=== PATIENT | female | born 1970 | race Caucasian/White ===

== ENCOUNTER → 2016-10-26 | Outpatient (CLI) | payer BC ==
[~2016-10-26] MED LIST: ATV5X PO; CEFU1TAB36 PO; IBUP-1451 PO; LORA-741 PO; ONDA4TAB10 SL; PHEN-876 PO; SULF800T23 PO; TAMS0.4C38 PO; THY30 PO
--- NOTE | 2016-10-26 13:22 | DIAGNOSTIC IMAGING REPORT ---
RIGHT FOOT MIN 3 VIEWS ROUTINE CLINICAL HISTORY: Right foot pain. No recent trauma. COMPARISON: None FINDINGS: The tarsometatarsal joints are intact. There is an accessory ossicle along the lateral aspect of the cuboid. There is no acute fracture or suspicious lesion within the right foot. There is no radiographic evidence of a stress fracture. No erosions are present. A small sclerotic lesion within the medial cuneiform to suggest a bone island. IMPRESSION: No significant abnormality of the right foot. Electronically signed by: Leonard Pelayo M.D. 10/26/2016 1:21 PM Dictated Date/Time: 10/26/2016 1:19 PM
== END | disposition home or self-care (01) ==
LOC: C.RADBC 12:49
PROVIDERS: ATTEND Family Medicine
DX: M79.671 Pain in right foot (principal)

== ENCOUNTER → 2017-01-31 | Outpatient (CLI) | payer BC ==
--- NOTE | 2017-02-01 07:58 | MAMMOGRAPHY REPORT ---
BILATERAL DIGITAL SCREENING MAMMOGRAM TOMOSYNTHESIS WITH CAD: 01/31/2017 CLINICAL HISTORY: Routine screening. Patient has no complaints. TECHNIQUE: Breast tomosynthesis in addition to standard 2D mammography was performed. Current study was also evaluated with a Computer Aided Detection (CAD) system. COMPARISON: Comparison is made to exams dated: 01/20/2016 mammogram - [facility], 12/19/2014, 10/25/2013, 10/23/2012, 07/22/2009 mammograms. BREAST COMPOSITION: The tissue of both breasts is heterogeneously dense, which may obscure small mas ses. FINDINGS: The parenchymal pattern is similar to prior mammograms. No developing mass, architectural distortion or cluster of suspicious microcalcifications is seen in either breast. IMPRESSION: ACR BI-RADS CATEGORY 2: BENIGN There is no mammographic evidence of malignancy. A 1 year screening mammogram is recommended. The pa tient will receive written notification of the results. Approximately 10% of breast cancers are not detected with mammography. A negative mammographic report should not delay biopsy if a clinically suggestive mass is present. Gloria Sevilla M.D. ay/:01/31/2017 15:24:57 Crane Man: Abbey RODRIGUEZ(Ashley)(Marquis), [facility] letter sent: Normal 1/2 BI-RADS Code: ACR BI-RADS Category 2: Benign
== END | disposition home or self-care (01) ==
LOC: C.MAMM 13:26
PROVIDERS: ATTEND Obstetrics & Gynecology
DX: Z12.31 Encounter for screening mammogram for malignant neoplasm of breast (principal)

== ENCOUNTER 2017-05-04 02:01 | Emergency (ER) | payer BC ==
[~2017-05-04] VITALS: Ht 157.5 cm; Wt 65.1 kg
[2017-05-04 02:08] VITALS: Ht 157.5 cm; Wt 65.1 kg
[2017-05-04] MEDS ORDERED: CEFTRIAXONE SOD INJ 1 GM ADDVIAL IV STA (02:24)
[2017-05-04] MEDS ORDERED: ONDANSETRON INJ 2 MG/ML 2 ML VIAL IV STA (02:24)
[2017-05-04 02:38] LABS: URINE APPEARANCE CLEAR (CLEAR); URINE BILIRUBIN NEG (NEG); URINE COLOR DK YELLOW; URINE NITRITE POS (NEG); URINE SPECIFIC GRAVITY 1.007 (1.000-1.030); UROBILINOGEN NEG (NEG); ZZUR CULT IF INDIC CLEAN CATCH NO
[2017-05-04] MEDS ORDERED: THY30 PO (02:48)
[2017-05-04 02:54] LABS: MANUAL MICROSCOPIC REQUIRED? NO; REVIEW REQ? YES
[2017-05-04 02:54] LABS: BASO % 0.2 %; BASO ABS # 0.02 K/uL (0-0.2); COMPLETE YES; EOS % 0.7 %; HEMATOCRIT 37.8 % (37-47); IG% 0.2 %; LYMPH % 32.3 %; LYMPH ABS # 2.79 K/uL (1.2-3.4); MEAN CELL VOLUME 87.7 fL (80-100); MEAN CORPUSCULAR HEMOGLOBIN 31.6 pg (25-34); MEAN PLATELET VOLUME 9.5 fL (7.4-10.4); NEUT % 60.6 %; PLATELET COUNT 283 K/uL (130-400); RED BLOOD COUNT 4.31 M/uL (4.2-5.4); WHITE BLOOD COUNT 8.63 K/uL (4.8-10.8)
[2017-05-04 03:10] LABS: BUN/CREATININE RATIO 5.4 (10-20); CALCIUM 8.4 mg/dl (8.5-10.1); CREATININE 0.62 mg/dl (0.60-1.20); POTASSIUM 3.1 mmol/L (3.5-5.1)
[2017-05-04] MEDS ORDERED: POTASSIUM CHLORIDE 10 MEQ TABCR PO STA (03:52)
[2017-05-04] MEDS ORDERED: PHENAZOPYRIDINE HCL 200 MG TAB PO STA (03:53)
[2017-05-04] MEDS ORDERED: SODIUM CHLORIDE 0.9% 500ML 500 ML IV STA (03:54)
[2017-05-04] MEDS ORDERED: LORAZEPAM 2 MG/ML 1 ML VIAL IV STA (04:04)
[2017-05-04 04:09] LABS: MAGNESIUM 1.8 mg/dl (1.8-2.4); THYROID STIMULATING HORMONE 3.03 uIu/ml (0.300-4.500)
[2017-05-04] MEDS ORDERED: SODIUM CHLORIDE 0.9% 1000ML 1,000 ML IV STA (04:15)
--- NOTE | 2017-05-04 04:42 | EMERGENCY ROOM VISIT NOTE ---
History First contact with patient: 02:12 Chief Complaint: URINARY SYMPTOMS Stated Complaint: SEVERE UTI Nursing Triage Summary: Pt c/o UTI for 10 days. Has been taking bactrim and azo with no relief. History of Present Illness The patient is a 46 year old female who presents to the Emergency Room with complaints of urinary frequency, dysuria, urgency for the past week and have his been on Bactrim. I saw this patient last week and placed her on Bactrim and urine culture was sensitive to this. This is the patient's third urine infection. The family care doctor did extend out her Bactrim. She has an appointment with urology at the end of May with Dr. Jackson. Patient states she feels nauseous. Patient denies back pain, vomiting, diarrhea, vaginal itching or discharge, fever, chills, body aches. Patient's been on Macrobid twice for her other 2 previous urine infections and has been on Bactrim for the past 10 days. Patient states she had skin testing in the past and it showed a mild reaction to the penicillins. Patient is unsure of exactly what she was allergic to to penicillin when she was 6 months old. Review of Systems See HPI for pertinent positives & negatives. A total of 10 systems reviewed and were otherwise negative. Past Medical/Surgical History Recurrent UTIs Social History Smoking Status: Never Smoker Smokeless Tobacco Use: No Drug Use: none Marital Status: Housing Status: lives with family Occupation Status: employed Current/Historical Medications Scheduled Cefuroxime Axetil (Cefuroxime Axetil), 1 TAB PO BID Phenazopyridine HCl (Pyridium), 200 MG PO TID Thyroid ([place] Thyroid), 60 MG PO DAILY Physical Exam Vital Signs Date Time Temp Pulse Resp B/P (MAP) Pulse Ox O2 Delivery O2 Flow Rate FiO2 05/04/17 03:53 90 18 135/91 96 Room Air 05/04/17 02:08 36.8 100 20 160/107 97 Room Air Physical Exam VITALS: Vitals are noted on the nurse's note and reviewed by myself. Vital signs stable. GENERAL: pleasant female, in no acute distress, nondiaphoretic, well-developed well-nourished. SKIN: Capillary reflex less than 2 seconds. HEENT: Normocephalic. PERRLA. EOMI. Nares patent. Mucous membranes moist. Neck is supple without nuchal rigidity. HEART: Regular rate and rhythm without murmurs gallops or rubs. LUNGS: Clear to auscultation bilaterally without wheezes, rales or rhonchi. No retractions or accessory muscle use. ABDOMEN: Positive bowel sounds x 4. Normal tympanic percussion. Soft, nontender, without masses or organomegaly. Robins sign negative. No guarding or rebound tenderness. no CVA tenderness MUSCULOSKELETAL: No gross musculoskeletal defects. No pedal edema. No calf tenderness. NEURO: Patient was alert and oriented to person place and time. Normal sensation to light and sharp touch. No focal neurological deficits. Medical Decision & Procedures Laboratory Results 05/04/17 02:45 Red Blood Count 4.31, Mean Corpuscular Volume 87.7, Mean Corpuscular Hemoglobin 31.6, Mean Corpuscular Hemoglobin Concent 36.0, Mean Platelet Volume 9.5, Neutrophils (%) (Auto) 60.6, Lymphocytes (%) (Auto) 32.3, Monocytes (%) (Auto) 6.0, Eosinophils (%) (Auto) 0.7, Basophils (%) (Auto) 0.2, Neutrophils # (Auto) 5.22, Lymphocytes # (Auto) 2.79, Monocytes # (Auto) 0.52, Eosinophils # (Auto) 0.06, Basophils # (Auto) 0.02 05/04/17 02:45 Test 05/04/17 02:20 05/04/17 02:45 Urine Color DK YELLOW Urine Appearance CLEAR (CLEAR) Urine pH 7.0 (4.5-7.5) Urine Specific [place] 1.007 (1.000-1.030) Urine Protein NEG (NEG) Urine Glucose (UA) NEG (NEG) Urine Ketones TRACE (NEG) Urine Occult Blood NEG (NEG) Urine Nitrite POS (NEG) Urine Bilirubin NEG (NEG) Urine Urobilinogen NEG (NEG) Urine Leukocyte Esterase TRACE (NEG) Urine WBC (Auto) 1-5 /hpf (0-5) Urine RBC (Auto) 0-4 /hpf (0-4) Urine Hyaline Casts (Auto) 0 /lpf (0-5) Urine Epithelial Cells (Auto) 10-20 /lpf (0-5) Urine Bacteria (Auto) NEG (NEG) Urine Osmolality 65 mOms/kg (500-800) Urine Random Sodium 21 mEq/L Urine Test NEG (NEG) White Blood Count 8.63 K/uL (4.8-10.8) Red Blood Count 4.31 M/uL (4.2-5.4) Hemoglobin 13.6 g/dL (12.0-16.0) Hematocrit 37.8 % (37-47) Mean Corpuscular Volume 87.7 fL (80-100) Mean Corpuscular Hemoglobin 31.6 pg (25-34) Mean Corpuscular Hemoglobin Concent 36.0 g/dl (32-36) Platelet Count 283 K/uL (130-400) Mean Platelet Volume 9.5 fL (7.4-10.4) Neutrophils (%) (Auto) 60.6 % Lymphocytes (%) (Auto) 32.3 % Monocytes (%) (Auto) 6.0 % Eosinophils (%) (Auto) 0.7 % Basophils (%) (Auto) 0.2 % Neutrophils # (Auto) 5.22 K/uL (1.4-6.5) Lymphocytes # (Auto) 2.79 K/uL (1.2-3.4) Monocytes # (Auto) 0.52 K/uL (0.11-0.59) Eosinophils # (Auto) 0.06 K/uL (0-0.5) Basophils # (Auto) 0.02 K/uL (0-0.2) RDW Standard Deviation 37.1 fL (36.4-46.3) RDW Coefficient of Variation 11.5 % (11.5-14.5) Immature Granulocyte % (Auto) 0.2 % Immature Granulocyte # (Auto) 0.02 K/uL (0.00-0.02) Anion Gap 9.0 mmol/L (3-11) Est Creatinine Clear Calc Drug Dose 102.6 ml/min Estimated GFR () 127.1 Estimated GFR (Non- 109.7 BUN/Creatinine Ratio 5.4 (10-20) Osmolality 259 mOsm/kg (280-300) Calcium Level 8.4 mg/dl (8.5-10.1) Magnesium Level 1.8 mg/dl (1.8-2.4) Total Bilirubin 0.6 mg/dl (0.2-1) Direct Bilirubin 0.1 mg/dl (0-0.2) Aspartate Amino Transf (AST/SGOT) 17 U/L (15-37) Alanine Aminotransferase (ALT/SGPT) 29 U/L (12-78) Alkaline Phosphatase 60 U/L (45-117) Total Protein 7.8 gm/dl (6.4-8.2) Albumin 3.9 gm/dl (3.4-5.0) Thyroid Stimulating Hormone (TSH) 3.030 uIu/ml (0.300-4.500) Medications Administered Medications (Trade) Dose Ordered Sig/Antonia Route Start Time Stop Time Status Last Admin Dose Admin Ondansetron HCl (Zofran Inj) 4 mg NOW STAT IV 05/04/17 02:24 05/04/17 02:31 DC 05/04/17 02:50 4 MG Ceftriaxone Sodium (Rocephin Inj) 1 gm NOW STAT IV 05/04/17 02:24 05/04/17 02:31 DC 05/04/17 02:51 1 GM Potassium Chloride (Klor-Con M10) 40 meq NOW STAT PO 05/04/17 03:52 05/04/17 03:54 DC 05/04/17 04:00 40 MEQ Phenazopyridine HCl (Pyridium Tab) 200 mg NOW STAT PO 05/04/17 03:53 05/04/17 03:54 DC 05/04/17 04:00 200 MG Sodium Chloride 500 ml @ 999 mls/hr Q31M STAT IV 05/04/17 03:54 05/04/17 04:24 DC 05/04/17 04:00 999 MLS/HR Lorazepam (Ativan Inj) 0.5 mg NOW STAT IV 05/04/17 04:04 05/04/17 04:05 DC 05/04/17 04:11 0.5 MG Sodium Chloride 1,000 ml @ 999 mls/hr Q1H1M STAT IV 05/04/17 04:15 05/04/17 05:15 DC 05/04/17 04:24 999 MLS/HR Ketorolac Tromethamine (Toradol Inj) 30 mg NOW STAT IV 05/04/17 05:17 05/04/17 05:18 DC 05/04/17 05:26 30 MG ED Course Prior records reviewed and summarized as above. Triage Nursing notes reviewed. Additional history obtained from family The patient's history was concerning for urinary symptoms Differential diagnosis: Etiologies such as UTI, cystitis, unlikely abnormality, infection, as well as others were entertained.. Physical examination: As above ER treatment provided: Rocephin, IV fluids, Pyridium, Ativan On reassessment the patient felt better. Diagnostics interpreted by me: The labs revealed low sodium and osmolarity levels were ordered along with TSH. Hypokalemia. Urine concerning for infection and sent for culture Imaging studies: renal US reviewed and read by radiology and concerning for possible pyelonephritis of the left kidney Consultation: A consultation was placed with the Dr. Fraga, resident, hospitalist. The case was discussed and diagnostics were reviewed. The patient was evaluated in the ER for further treatment. This appears to be hyponatremia, hypocalcemia and UTI versus pyelonephritis. Patient was given Rocephin in the ER. Urine culture was sent. Patient states she's been drinking lots of water to flush her bladder. She's been feeling nauseous now shaky and anxious. She will be evaluated by medicine for the hyponatremia and please see their note for further information regarding their treatment plan. Osmolarity levels were ordered. Patient denies history of hyponatremia. Medicine has felt the patient is stable to be discharged home. Patient was given antibiotic prescription by Dr. Fraga and have a repeat sodium tomorrow. The pt informed about the findings as listed above. All questions were answered and pleased with the treatment. Case reviewed by attending. Medical Decision as above Medication Reconcilliation Current Medication List: was personally reviewed by me Blood Pressure Screening Patient's blood pressure: Elevated blood pressure Blood pressure disposition: Referred to PCP Impression Primary Impression: Hyponatremia Additional Impressions: Urinary tract infection Hypokalemia Departure Information Dispostion Being Evaluated By Hospitalist Condition GOOD Prescriptions Phenazopyridine HCl (Pyridium) 200 Mg Tab 200 MG PO TID for Bladder Pain for 2 Days, #6 TAB Prov: Saul Fraga MD 05/04/17 Cefuroxime Axetil (CEFUROXIME AXETIL) 500 Mg Tab 1 TAB PO BID for 7 Days, #14 TAB Prov: Saul Fraga MD 05/04/17 Referrals Varun Winn DO (PCP) Patient Instructions [facility] Problem Qualifiers
[2017-05-04] MEDS ORDERED: KETOROLAC TROMETHAMINE 30 MG/ML VIAL IV STA (05:17)
[2017-05-04] MEDS ORDERED: CEFU1TAB36 PO (05:32)
[2017-05-04] MEDS ORDERED: PHEN-876 PO (05:32)
[2017-05-04 06:00] VITALS: BP 130/88; PULSE 94; TEMP 36.8; O2SAT 98
--- NOTE | 2017-05-04 06:01 | Medical Consult ---
Consultation Date of Consultation: May 04, 2017. Attending Physician: Dr Gao Reason for Consultation: Assessment for possible Admission History of Present Illness Mrs Gandara is a 46 year old female with 3 UTIs since November who presents to the ER with dysuria, urinary frequency, urgency and chills. She was seen in the ER on 04/25/17 (9 days previously with similar symptoms). At that time she was treated with 5 days of Bactrim. Subsequent urine culture showed pansensitive E. coli. However she felt her symptoms did not completely resolve so 3 days ago went to her PCP who considered the diagnosis of interstitial cystitis and recommended treating conservatively with pain relief alone. She became worse over the next 2 days and so returned to PCP and ordered UA + culture and she was again prescribed Bactrim. She was unable to sleep overnight due to her dysuria therefore decided to present to the ER. Using Azo but not making a difference. She denies any fevers but has been having chills in the ER. She has mild suprapubic pain but denies any back pain, nausea, vomiting, vaginal itching discharge or bleeding. She has not had a period since her endometrial ablation in 2011. She has had x3 UTIs since November, the others have been successfully treated with Macrobid. She does not have diabetes and is a non-smoker. No history of kidney stones. Routine lab tests in the ER showed a sodium level of 126 so she was referred to the medical service for admission. She denies any malaise, headache, nausea, confusion or respiratory difficulties. Past Medical/Surgical History Medical Problems: E. coli UTI (04/25/17), x3 UTIs since November x2 UTIs as a child Past Surgical history - Endometrial ablation 2011 Family History Noncontributory Social History Smoking Status: Never Smoker Smokeless Tobacco Use: No Drug Use: none Marital Status: Housing Status: lives with family Occupation Status: employed Allergies Coded Allergies: Penicillins (Verified Allergy, Unknown, HIVES, 05/04/17) Home Medications Occasional supplements but nothing consistent or newly started with her symptoms Recent use of Bactrim and azo as noted in HPI Review of Systems Constitutional: + chills (since coming to the ER), No fever ENT: No hearing loss Respiratory: No cough Cardiovascular: No chest pain Abdomen: + pain (suprapubic), No nausea, No vomiting, No diarrhea, No constipation, No GI bleeding Musculoskeletal: No joint pain, No muscle pain Genitourinary - Female: + dysuria, + urinary frequency, + urinary urgency Neurologic: No memory loss, No numbness/tingling, No vertigo, No balance problems Endocrine: No fatigue Hematologic / Lymphatic: No abnormal bleeding/bruising Integumentary: No rash, No itch Physical Exam Date Time Temp Pulse Resp B/P (MAP) Pulse Ox O2 Delivery O2 Flow Rate FiO2 05/04/17 05:35 94 18 130/88 98 Room Air 05/04/17 03:53 90 18 135/91 96 Room Air 05/04/17 02:08 36.8 100 20 160/107 97 Room Air General Appearance: WD/WN, no apparent distress Head: normocephalic, atraumatic Eyes: normal inspection, PERRL, EOMI ENT: pharynx normal Respiratory/Chest: lungs clear, normal breath sounds, no respiratory distress, no accessory muscle use Cardiovascular: regular rate, rhythm, no murmur, normal peripheral pulses Abdomen/GI: normal bowel sounds, soft, + tenderness (mild tenderness, no rebound or guarding) Back: no CVA tenderness Extremities/Musculoskelatal: no calf tenderness, normal capillary refill, no pedal edema 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 (no facial droop), no motor/sensory deficits (grossly), alert, normal mood/affect, oriented x 3 Skin: normal color, warm/dry, no rash Laboratory Results Last 24 Hours Test 05/04/17 02:20 05/04/17 02:45 Urine Color DK YELLOW Urine Appearance CLEAR Urine pH 7.0 Urine Specific [place] 1.007 Urine Protein NEG Urine Glucose (UA) NEG Urine Ketones TRACE Urine Occult Blood NEG Urine Nitrite POS Urine Bilirubin NEG Urine Urobilinogen NEG Urine Leukocyte Esterase TRACE Urine WBC (Auto) 1-5 /hpf Urine RBC (Auto) 0-4 /hpf Urine Hyaline Casts (Auto) 0 /lpf Urine Epithelial Cells (Auto) 10-20 /lpf Urine Bacteria (Auto) NEG Urine Osmolality 65 mOms/kg Urine Random Sodium 21 mEq/L Urine Test NEG White Blood Count 8.63 K/uL Red Blood Count 4.31 M/uL Hemoglobin 13.6 g/dL Hematocrit 37.8 % Mean Corpuscular Volume 87.7 fL Mean Corpuscular Hemoglobin 31.6 pg Mean Corpuscular Hemoglobin Concent 36.0 g/dl Platelet Count 283 K/uL Mean Platelet Volume 9.5 fL Neutrophils (%) (Auto) 60.6 % Lymphocytes (%) (Auto) 32.3 % Monocytes (%) (Auto) 6.0 % Eosinophils (%) (Auto) 0.7 % Basophils (%) (Auto) 0.2 % Neutrophils # (Auto) 5.22 K/uL Lymphocytes # (Auto) 2.79 K/uL Monocytes # (Auto) 0.52 K/uL Eosinophils # (Auto) 0.06 K/uL Basophils # (Auto) 0.02 K/uL RDW Standard Deviation 37.1 fL RDW Coefficient of Variation 11.5 % Immature Granulocyte % (Auto) 0.2 % Immature Granulocyte # (Auto) 0.02 K/uL Sodium Level 126 mmol/L Potassium Level 3.1 mmol/L Chloride Level 94 mmol/L Carbon Dioxide Level 23 mmol/L Anion Gap 9.0 mmol/L Blood Urea Nitrogen 3 mg/dl Creatinine 0.62 mg/dl Est Creatinine Clear Calc Drug Dose 102.6 ml/min Estimated GFR () 127.1 Estimated GFR (Non- 109.7 BUN/Creatinine Ratio 5.4 Random Glucose 102 mg/dl Osmolality 259 mOsm/kg Calcium Level 8.4 mg/dl Magnesium Level 1.8 mg/dl Total Bilirubin 0.6 mg/dl Direct Bilirubin 0.1 mg/dl Aspartate Amino Transf (AST/SGOT) 17 U/L Alanine Aminotransferase (ALT/SGPT) 29 U/L Alkaline Phosphatase 60 U/L Total Protein 7.8 gm/dl Albumin 3.9 gm/dl Thyroid Stimulating Hormone (TSH) 3.030 uIu/ml Assessment & Plan 46 year old female with recent recurrent UTIs, consult for hyponatremia 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 - she is an otherwise healthy 46 year old female without signs of hyponatremia therefore this can be treated as an outpatient with fluid restriction, 1L NSS given in the ER likely to also bring this up. - Fluid restrict to 1L for next 2 days - Recommend repeat sodium level (script given) on 05/05/17 with results to PCP. - Call PCP in morning to arrange follow up. UTI/cystitis - renal US does not rule out pyelonephritis and raises possibility of upper urinary tract infection however given lack of fever, WBC or CVA tenderness recommend treatment as an outpatient - ceftriaxone 1g IV given in ER, call PCP in morning for culture results and if positive recommend treating with cefuroxime 500mg BID 7 days (printed script given). Patient refused ciprofloxacin due to FDA black box warnings of tendonitis and increased incidence of clostridium difficile. - stressed patient to return to the ER if fever, chills, back pain, confusion or getting worse despite antibiotics. Dysuria, recurrent UTIs - possible urethral retention given post void residual on renal US (radiologist day time reading reviewed after patient discharged, not mentioned on statRad) ? anatomical (prolapse vs. stricture), recommend re-imaging after primary polydipsia and hyponatremia resolved with urology outpatient follow up - possible interstitial cystitis and urethritis due to hypo-osmolar urine and bladder distension - recommend urology follow up - treat with Pyridium and fluid restrict as above Hypokalemia - 40 meq KCl given in ER, suspect secondary to polyuria which should resolve with fluid restriction Attending addendum: I have physically seen this patient, have supervised the medical residents activities, and agree with the H&P unless as otherwise noted. Assessment and Plan: Hypervolemic Hyponatremia/hypokalemia-- Sodium 126, serum osmolality 259, urine osmolality 65. Patient reports that she usually drinks upwards of 3 L of fluid a day on a routine basis. Laboratories are likely chronically in this direction. Advised to 1500 mL fluid restriction for now, and follow up laboratories with her PCP Urinary tract infection/dysuria-- Escherichia coli pansensitive noted one week ago. Suspect her symptoms are at least in part related to very dilute urine and frequent urination Fluid restriction as noted above Prescription for cefuroxime and Pyridium given but told to not fill until she speaks with her PCP tomorrow regarding follow-up of culture and sensitivity done as outpatient yesterday and in the ED today. Consideration for interstitial cystitis Additional Copies To Varun Winn, DO
--- NOTE | 2017-05-04 07:22 | DIAGNOSTIC IMAGING REPORT ---
(RENAL)RETROPERITON COMP CLINICAL HISTORY: 46 years-old Female presenting with recurrent UTI, on Bactrim for 5 days, constant urethral burning, no flank pain or gross hematuria. TECHNIQUE: Real-time grayscale and limited color Doppler ultrasound imaging of the kidneys and bladder was performed. COMPARISON: None. FINDINGS: Right kidney: Normal echogenicity. Right kidney measures 11.5 cm. No hydronephrosis. No convincing evidence of calculus or mass. Normal perfusion. Left kidney: Normal echogenicity. Left kidney measures 11.4 cm. Mild pelviectasis and possible urothelial thickening. No convincing evidence of calculus or mass. Normal perfusion. Bladder: No bladder wall thickening. Bilateral ureteral jets present. Post void residual volume measures 52 mL, which is slightly elevated. Other: None. IMPRESSION: 1. Mild left pelviectasis without convincing evidence of hydronephrosis. Left urothelial thickening raises concern for upper tract infection. Pyelonephritis is difficult to exclude by ultrasound. If there is clinical concern, further evaluation with contrast-enhanced CT of the abdomen and pelvis recommended. 2. Elevated post void residual volume. Electronically signed by: Kem Chavez M.D. 05/04/2017 7:21 AM Dictated Date/Time: 05/04/2017 7:19 AM
[2017-05-05] MEDS ORDERED: ONDA4TAB10 SL (16:52)
[2017-05-05] MEDS ORDERED: LORA-741 PO (16:52)
[2017-05-05] MEDS ORDERED: PHEN-876 PO (16:53)
== END 2017-05-04 06:00 | disposition home or self-care (01) ==
LOC: C.EDB 02:02 → C.EDA 06:00
DX: R63.1 Polydipsia (principal); E87.1 Hypo-osmolality and hyponatremia; N39.0 Urinary tract infection, site not specified; E87.6 Hypokalemia; Z87.440 Personal history of urinary (tract) infections; Z86.19 Personal history of other infectious and parasitic diseases; Z98.890 Other specified postprocedural states

== ENCOUNTER 2017-05-05 13:43 | Emergency (ER) | payer BC ==
[~2017-05-05] VITALS: Ht 157.5 cm; Wt 62.8 kg
[~2017-05-05 13:43] MED LIST changes: -ATV5X PO; -IBUP-1451 PO; -LORA-741 PO; -ONDA4TAB10 SL; -SULF800T23 PO; -TAMS0.4C38 PO
[2017-05-05 13:48] VITALS: TEMP 36.7; Ht 157.5 cm; Wt 62.8 kg
--- NOTE | 2017-05-05 14:16 | EMERGENCY ROOM VISIT NOTE ---
History Report prepared by Geoff: Gurdeep Ray Under the Supervision of: Dr. Christiane Shabazz D.O. First contact with patient: 13:56 Chief Complaint: URINARY SYMPTOMS Stated Complaint: BURNING, UTI Nursing Triage Summary: Pt reports UTI. was here monday night. was told they would call with culture results. c/o urinary burning. Had 1 round of abx, Pyridium. Pt now reports some discomfort today, now worsening. Pt anxious and tearful in Triage. "I don't want to take antibiotics if I don't have to". History of Present Illness The patient is a 46 year old female with a history of 7 UTI's who presents to the Emergency Room with complaints of waxing and waning urinary symptoms that started about 10 days ago. She says that she has been seen here 3 times in the past 10 days. The patient states that she was put on a 5-day course of Bactrim, and finished that earlier in the week. She notes that her symptoms got mostly better, but still felt a bit of burning and pressure going on. The patient says that she saw her primary care physician 3 days ago, and was told that she has some irritation going on. She was told to give a couple more days to see if she would improve. The patient says that she was then seen here 2 days ago due to worsening symptoms, and was told that there was concern that her sodium levels were so low in her urine. She notes that she was given an antibiotic, but did not start it yet, as she does not want to take antibiotics if she does not have to. She states that she felt a lot better yesterday, but this morning, she started having more urinary burning. She states that she took Pyridium around 4 hours ago and Advil 2 hours ago. The patient states that the Pyridium helps the burning a bit, but it did not help today. She denies any back pain, current abdominal pain, vomiting, fevers, abnormal vaginal discharge, bleeding, or rashes. Source of History: patient Onset: About 10 days ago Position: other (global - urinary symptoms) Quality: other (urinary burning) Timing: other (waxing and waning) Associated Symptoms: No fevers, No vomiting, No abdominal pain, No back pain , No rash Note: Associated symptoms: Denies abnormal vaginal discharge, bleeding. Review of Systems See HPI for pertinent positives & negatives. A total of 10 systems reviewed and were otherwise negative. Past Medical & Surgical Medical Problems: (1) No chronic diseases present Family History FHx: cancer Gallbladder disease Heart disease Hypertension Social History Smoking Status: Never Smoker Drug Use: none Marital Status: Housing Status: lives with family Occupation Status: employed Current/Historical Medications Scheduled Cefuroxime Axetil (Cefuroxime Axetil), 1 TAB PO BID Lorazepam (Ativan), 0.5 MG PO BID Ondasetron Odt (Zofran Odt), 4 MG SL Q8 Thyroid ([place] Thyroid), 60 MG PO DAILY Scheduled PRN Phenazopyridine HCl (Pyridium), 200 MG PO TID PRN for Frequency/Burning w/ Urination Allergies Coded Allergies: Penicillins (Verified Allergy, Unknown, HIVES, 05/04/17) Physical Exam Vital Signs Date Time Temp Pulse Resp B/P (MAP) Pulse Ox O2 Delivery O2 Flow Rate FiO2 05/05/17 16:45 90 16 136/92 98 Room Air 05/05/17 15:30 93 16 98 Room Air 05/05/17 13:48 36.7 91 18 152/92 95 Room Air Physical Exam GENERAL: alert, anxious and tearful, well nourished, no distress, non-toxic EYE EXAM: normal conjunctiva, PERRL and EOM's grossly intact OROPHARYNX: no exudate, no erythema, lips, buccal mucosa, and tongue normal and mucous membranes are moist NECK: supple, no nuchal rigidity, no adenopathy, non-tender LUNGS: Clear to auscultation. Normal chest wall mechanics HEART: no murmurs, S1 normal and S2 normal ABDOMEN: abdomen soft, non-tender, normo-active bowel sounds, no masses, no rebound or guarding. BACK: Back is symmetrical on inspection and there is no deformity, no midline tenderness, no CVA tenderness. SKIN: no rashes and no bruising UPPER EXTREMITIES: upper extremities are grossly normal. LOWER EXTREMITIES: No pitting edema. NEURO EXAM: Normal sensorium, cranial nerves II-XII grossly intact, normal speech, no gross weakness of arms, no gross weakness of legs. Medical Decision & Procedures Laboratory Results 05/05/17 14:57 Red Blood Count 4.22, Mean Corpuscular Volume 90.0, Mean Corpuscular Hemoglobin 31.8, Mean Corpuscular Hemoglobin Concent 35.3, Mean Platelet Volume 9.8, Neutrophils (%) (Auto) 73.3, Lymphocytes (%) (Auto) 21.4, Monocytes (%) (Auto) 4.4, Eosinophils (%) (Auto) 0.3, Basophils (%) (Auto) 0.3, Neutrophils # (Auto) 5.34, Lymphocytes # (Auto) 1.56, Monocytes # (Auto) 0.32, Eosinophils # (Auto) 0.02, Basophils # (Auto) 0.02 05/05/17 14:57 Test 05/05/17 14:57 White Blood Count 7.28 K/uL (4.8-10.8) Red Blood Count 4.22 M/uL (4.2-5.4) Hemoglobin 13.4 g/dL (12.0-16.0) Hematocrit 38.0 % (37-47) Mean Corpuscular Volume 90.0 fL (80-100) Mean Corpuscular Hemoglobin 31.8 pg (25-34) Mean Corpuscular Hemoglobin Concent 35.3 g/dl (32-36) Platelet Count 291 K/uL (130-400) Mean Platelet Volume 9.8 fL (7.4-10.4) Neutrophils (%) (Auto) 73.3 % Lymphocytes (%) (Auto) 21.4 % Monocytes (%) (Auto) 4.4 % Eosinophils (%) (Auto) 0.3 % Basophils (%) (Auto) 0.3 % Neutrophils # (Auto) 5.34 K/uL (1.4-6.5) Lymphocytes # (Auto) 1.56 K/uL (1.2-3.4) Monocytes # (Auto) 0.32 K/uL (0.11-0.59) Eosinophils # (Auto) 0.02 K/uL (0-0.5) Basophils # (Auto) 0.02 K/uL (0-0.2) RDW Standard Deviation 39.5 fL (36.4-46.3) RDW Coefficient of Variation 12.0 % (11.5-14.5) Immature Granulocyte % (Auto) 0.3 % Immature Granulocyte # (Auto) 0.02 K/uL (0.00-0.02) Urine Color DK YELLOW Urine Appearance CLEAR (CLEAR) Urine pH 6.5 (4.5-7.5) Urine Specific [place] 1.011 (1.000-1.030) Urine Protein NEG (NEG) Urine Glucose (UA) NEG (NEG) Urine Ketones TRACE (NEG) Urine Occult Blood NEG (NEG) Urine Nitrite POS (NEG) Urine Bilirubin NEG (NEG) Urine Urobilinogen NEG (NEG) Urine Leukocyte Esterase TRACE (NEG) Urine WBC (Auto) 1-5 /hpf (0-5) Urine RBC (Auto) 0-4 /hpf (0-4) Urine Hyaline Casts (Auto) 1-5 /lpf (0-5) Urine Epithelial Cells (Auto) >30 /lpf (0-5) Urine Bacteria (Auto) NEG (NEG) Anion Gap 7.0 mmol/L (3-11) Est Creatinine Clear Calc Drug Dose 84.5 ml/min Estimated GFR () 114.2 Estimated GFR (Non- 98.5 BUN/Creatinine Ratio 6.5 (10-20) Calcium Level 8.5 mg/dl (8.5-10.1) Laboratory results per my review. Medications Administered Medications (Trade) Dose Ordered Sig/Antonia Route Start Time Stop Time Status Last Admin Dose Admin Lorazepam (Ativan Tab) 0.5 mg NOW STAT SL 05/05/17 16:19 05/05/17 16:21 DC 05/05/17 16:44 0.5 MG Phenazopyridine HCl (Pyridium Tab) 200 mg NOW STAT PO 05/05/17 16:49 05/05/17 16:50 DC 05/05/17 17:21 200 MG ED Course 1403: The patient was evaluated in room B6. A complete history and physical exam was performed. 1540: Upon reevaluation, the patient is feeling better. I discussed the findings and the treatment plan with the patient. She verbalizes agreement and understanding. She will be discharged home. 1619: Ordered Ativan Tab 0.5 mg SL. 1649: Ordered Pyridium Tab 200 mg PO. Medical Decision Differential diagnosis: Etiologies such as renal colic, appendicitis, diverticulitis, mesenteric ischemia, aortic pathology, infections, inflammatory bowel disease, PUD, biliary pathology, UTI, as well as others were entertained. Patient well-appearing here despite complaints. No evidence of pyelonephritis. Doubt pyelonephritis or bacteremia/sepsis. Patient's urine again suggestive of UTI. Patient has antibiotic she was written for as a prescription 24 hours ago at home and had not yet started. I advised her to start this. Recheck of the patient's serum sodium shows it has increased from 126 to 132. Patient with no other signs of hyponatremia. Discussed with patient possible component of urethritis and irritation secondary to frequent urination and she has been drinking copious amounts of water, which is likely also the cause of her hyponatremia. Culture was sent as a precaution, discussed with patient and family follow-up with urology as scheduled, symptoms to watch and return for, they verbalized understanding were agreeable with plan. Patient hemodynamically stable here, tolerating by mouth. Medication Reconcilliation Current Medication List: was personally reviewed by me Blood Pressure Screening Patient's blood pressure: Elevated blood pressure Blood pressure disposition: Elevated BP felt to be situational Impression Primary Impression: Dysuria Additional Impression: Hyponatremia Scribe Attestation The scribe's documentation has been prepared under my direction and personally reviewed by me in its entirety. I confirm that the note above accurately reflects all work, treatment, procedures, and medical decision making performed by me. Departure Information Dispostion Home / Self-Care Prescriptions Phenazopyridine HCl (Pyridium) 200 Mg Tab 200 MG PO TID Y for Frequency/Burning w/Urination, #12 TAB Prov: Christiane Shabazz DO 05/05/17 Ondasetron Odt (ZOFRAN ODT) 4 Mg Tab 4 MG SL Q8 for Nausea, #20 TAB Prov: Christiane Shabazz, 05/05/17 Lorazepam (ATIVAN) 0.5 Mg Tab 0.5 MG PO BID for Anxiety, #10 TAB Prov: Christiane Shabazz, 05/05/17 Referrals Varun Winn DO (PCP) Patient Instructions My [facility] Additional Instructions Please continue to drink fluids to stay well-hydrated. You may eat as tolerated. You may continue using the Pyridium for your discomfort. Please take the antibiotics as prescribed. You may call to check on the urine culture tomorrow. Your sodium was improved today to 132. If you have worsening pain, are unable to urinate, develop back pain, abdominal pain, fevers, vomiting, or you have any other new concerns, please return the emergency room. Problem Qualifiers
[2017-05-05 15:13] LABS: URINE APPEARANCE CLEAR (CLEAR); URINE BILIRUBIN NEG (NEG); URINE COLOR DK YELLOW; URINE NITRITE POS (NEG); URINE PH 6.5 (4.5-7.5); URINE SPECIFIC GRAVITY 1.011 (1.000-1.030); UROBILINOGEN NEG (NEG); ZZUR CULT IF INDIC CLEAN CATCH NO
[2017-05-05 15:14] LABS: MANUAL MICROSCOPIC REQUIRED? NO; REVIEW REQ? YES
[2017-05-05 15:19] LABS: BASO % 0.3 %; BASO ABS # 0.02 K/uL (0-0.2); COMPLETE YES; EOS % 0.3 %; IG% 0.3 %; LYMPH % 21.4 %; LYMPH ABS # 1.56 K/uL (1.2-3.4); MEAN CORPUSCULAR HEMOGLOBIN 31.8 pg (25-34); MEAN CORPUSCULAR HGB CONC 35.3 g/dl (32-36); MEAN PLATELET VOLUME 9.8 fL (7.4-10.4); MONO % 4.4 %; NEUT % 73.3 %; PLATELET COUNT 291 K/uL (130-400); RED BLOOD COUNT 4.22 M/uL (4.2-5.4); WHITE BLOOD COUNT 7.28 K/uL (4.8-10.8)
[2017-05-05 15:23] LABS: URINE EPITHELIAL CELL AUTO >30 /lpf (0-5)
[2017-05-05 15:38] LABS: BUN/CREATININE RATIO 6.5 (10-20); CALCIUM 8.5 mg/dl (8.5-10.1); CREATININE 0.74 mg/dl (0.60-1.20); POTASSIUM 3.9 mmol/L (3.5-5.1)
[2017-05-05] MEDS ORDERED: LORAZEPAM 0.5 MG TAB SL STA (16:19)
[2017-05-05 16:45] VITALS: BP 136/92; PULSE 90; O2SAT 98
[2017-05-05] MEDS ORDERED: PHENAZOPYRIDINE HCL 200 MG TAB PO STA (16:49)
[2017-05-05] MEDS ORDERED: ONDA4TAB10 SL (16:52)
[2017-05-05] MEDS ORDERED: LORA-741 PO (16:52)
[2017-05-05] MEDS ORDERED: PHEN-876 PO (16:53)
== END 2017-05-05 17:31 | disposition home or self-care (01) ==
LOC: C.EDB 13:44
DX: R30.0 Dysuria (principal); E87.1 Hypo-osmolality and hyponatremia; Z87.440 Personal history of urinary (tract) infections; Z80.9 Family history of malignant neoplasm, unspecified; Z82.49 Family history of ischemic heart disease and other diseases of the circulatory system; Z79.899 Other long term (current) drug therapy

== ENCOUNTER → 2017-05-08 | Outpatient (CLI) | payer BC ==
[~2017-05-08] MED LIST changes: +ATV5X PO; +IBUP-1451 PO; +LORA-741 PO; +ONDA4TAB10 SL; +TAMS0.4C38 PO
[2017-05-08 19:28] LABS: MANUAL MICROSCOPIC REQUIRED? NO; URINE APPEARANCE CLEAR (CLEAR); URINE BILIRUBIN NEG (NEG); URINE COLOR YELLOW; URINE NITRITE NEG (NEG); URINE SPECIFIC GRAVITY <= 1.005 (1.000-1.030); UROBILINOGEN NEG (NEG)
[2017-05-08 19:31] LABS: REVIEW REQ? NO
== END | disposition home or self-care (01) ==
LOC: C.LABSPEC 17:47
PROVIDERS: ATTEND Physician Assistant
DX: N94.9 Unspecified condition associated with female genital organs and menstrual cycle (principal)

== ENCOUNTER 2017-05-11 18:18 | Emergency (ER) | payer BC ==
[~2017-05-11] VITALS: Ht 157.5 cm; Wt 62.6 kg
[~2017-05-11 18:18] MED LIST changes: -ATV5X PO; -IBUP-1451 PO; -TAMS0.4C38 PO
[2017-05-11 18:19] VITALS: Ht 157.5 cm; Wt 62.6 kg
--- NOTE | 2017-05-11 18:46 | EMERGENCY ROOM VISIT NOTE ---
History Report prepared by Geoff: Jose E Gonzalez Under the Supervision of: Dr. Eran Blue M.D. First contact with patient: 18:34 Chief Complaint: URINARY SYMPTOMS Stated Complaint: BURNING IN THE URETHRA AREA FOR 10 DAYS Nursing Triage Summary: pt reports she has been here 4 x in last 2 weeks for urinary sx . has appt with urology on may 19 pt reports not having life d/t discomfort and was told her sx are not urgent at this time. c/o urethra burning History of Present Illness The patient is a 47 year old female who presents to the Emergency Room with complaints of burning and contraction of her urethra. She complains of UTI for the past 10 days which have been "hell". The patient complains of worsening pain and symptoms despite regular administration of Tylenol and Advil. The patient has made an appointment with Urology for 05/19/2017; however she was unable to obtain an earlier appointment. Per patient, recently seen by VISUAL MERCHANDISING DIRECTOR () with unremarkable pelvic exam, negative UA with cervical cultures pending. Further, the patient has had recurrent urinary tract infections since November of earlier this year. She denies fevers, chills, headaches, nausea, vomiting, discharge, and blood in urine. Source of History: patient, spouse/significant other Onset: 10 days ago Position: pelvis (urethra) Quality: other (contraction of urethra and pain) Timing: worsening (worse from her previous episode) Associated Symptoms: + urinary symptoms (pain without discharge or blood in urine), No fevers, No chills, No nausea, No vomiting Note: Additional Symptoms: dysuria Review of Systems See HPI for pertinent positives and negatives. A total of ten systems were reviewed and were otherwise negative. Past Medical & Surgical Medical Problems: (1) No chronic diseases present Family History FHx: cancer Gallbladder disease Heart disease Hypertension Social History Smoking Status: Never Smoker Drug Use: none Marital Status: Housing Status: lives with family Occupation Status: employed Current/Historical Medications Scheduled Lorazepam (Ativan), 0.5 MG PO BID Phenazopyridine HCl (Pyridium), 200 MG PO TID Tamsulosin Hcl (Flomax), 0.4 MG PO DAILY Thyroid ([place] Thyroid), 60 MG PO DAILY Scheduled PRN Ibuprofen Tab (Motrin), 800 MG PO Q8H PRN for Pain Lorazepam (Lorazepam), 1 TAB PO BID PRN for Anxiety Phenazopyridine HCl (Pyridium), 200 MG PO TID PRN for Frequency/Burning w/ Urination Allergies Coded Allergies: Penicillins (Verified Allergy, Unknown, HIVES, 05/11/17) Physical Exam Vital Signs Date Time Temp Pulse Resp B/P (MAP) Pulse Ox O2 Delivery O2 Flow Rate FiO2 05/11/17 21:53 36.8 82 18 129/87 96 Room Air 05/11/17 20:00 37.0 92 18 157/94 96 Room Air 05/11/17 19:31 85 05/11/17 18:19 36.9 96 18 157/111 95 Room Air Physical Exam GENERAL: Awake, alert, uncomfortable-appearing, but in no acute distress HENT: Normocephalic, atraumatic. Oropharynx unremarkable. Dry mucous membranes. EYES: Normal conjunctiva. Sclera non-icteric. NECK: Supple. No nuchal rigidity. FROM. No JVD. RESPIRATORY: Clear to auscultation. CARDIAC: Regular rate, normal rhythm. Extremities warm and well perfused. Pulses equal. ABDOMEN: Mild suprapubic tenderness but otherwise soft, non-distended. No rebound or guarding. No masses. RECTAL: Deferred. MUSCULOSKELETAL: Chest examination reveals no tenderness. The back is symmetrical on inspection without obvious abnormality. There is no CVA tenderness to palpation. No joint edema. LOWER EXTREMITIES: Calves are equal size bilaterally and non-tender. No edema. No discoloration. NEURO: Normal sensorium. No sensory or motor deficits noted. SKIN: No rash or jaundice noted. Medical Decision & Procedures Laboratory Results 05/11/17 19:13 Red Blood Count 3.99, Mean Corpuscular Volume 89.7, Mean Corpuscular Hemoglobin 32.3, Mean Corpuscular Hemoglobin Concent 36.0, Mean Platelet Volume 9.5, Neutrophils (%) (Auto) 62.1, Lymphocytes (%) (Auto) 30.6, Monocytes (%) (Auto) 6.3, Eosinophils (%) (Auto) 0.6, Basophils (%) (Auto) 0.1, Neutrophils # (Auto) 6.15, Lymphocytes # (Auto) 3.03, Monocytes # (Auto) 0.62, Eosinophils # (Auto) 0.06, Basophils # (Auto) 0.01 05/11/17 19:13 Test 05/11/17 19:13 White Blood Count 9.90 K/uL (4.8-10.8) Red Blood Count 3.99 M/uL (4.2-5.4) Hemoglobin 12.9 g/dL (12.0-16.0) Hematocrit 35.8 % (37-47) Mean Corpuscular Volume 89.7 fL (80-100) Mean Corpuscular Hemoglobin 32.3 pg (25-34) Mean Corpuscular Hemoglobin Concent 36.0 g/dl (32-36) Platelet Count 278 K/uL (130-400) Mean Platelet Volume 9.5 fL (7.4-10.4) Neutrophils (%) (Auto) 62.1 % Lymphocytes (%) (Auto) 30.6 % Monocytes (%) (Auto) 6.3 % Eosinophils (%) (Auto) 0.6 % Basophils (%) (Auto) 0.1 % Neutrophils # (Auto) 6.15 K/uL (1.4-6.5) Lymphocytes # (Auto) 3.03 K/uL (1.2-3.4) Monocytes # (Auto) 0.62 K/uL (0.11-0.59) Eosinophils # (Auto) 0.06 K/uL (0-0.5) Basophils # (Auto) 0.01 K/uL (0-0.2) RDW Standard Deviation 38.6 fL (36.4-46.3) RDW Coefficient of Variation 11.9 % (11.5-14.5) Immature Granulocyte % (Auto) 0.3 % Immature Granulocyte # (Auto) 0.03 K/uL (0.00-0.02) Urine Color DK YELLOW Urine Appearance CLEAR (CLEAR) Urine pH 6.5 (4.5-7.5) Urine Specific [place] 1.010 (1.000-1.030) Urine Protein NEG (NEG) Urine Glucose (UA) NEG (NEG) Urine Ketones NEG (NEG) Urine Occult Blood NEG (NEG) Urine Nitrite POS (NEG) Urine Bilirubin NEG (NEG) Urine Urobilinogen NEG (NEG) Urine Leukocyte Esterase NEG (NEG) Urine WBC (Auto) /hpf (0-5) Urine RBC (Auto) /hpf (0-4) Urine Hyaline Casts (Auto) /lpf (0-5) Urine Epithelial Cells (Auto) /lpf (0-5) Urine Bacteria (Auto) (NEG) Urine RBC 0-4 /hpf (0-4) Urine WBC 1-5 /hpf (0-5) Urine Epithelial Cells 20-30 /lpf (0-5) Urine Bacteria 2+ (NEG) Urine Test NEG (NEG) Anion Gap 4.0 mmol/L (3-11) Est Creatinine Clear Calc Drug Dose 78.2 ml/min Estimated GFR () 104.8 Estimated GFR (Non- 90.4 BUN/Creatinine Ratio 9.5 (10-20) Calcium Level 8.8 mg/dl (8.5-10.1) Total Bilirubin 0.5 mg/dl (0.2-1) Direct Bilirubin < 0.1 mg/dl (0-0.2) Aspartate Amino Transf (AST/SGOT) 16 U/L (15-37) Alanine Aminotransferase (ALT/SGPT) 28 U/L (12-78) Alkaline Phosphatase 48 U/L (45-117) Total Protein 7.2 gm/dl (6.4-8.2) Albumin 3.6 gm/dl (3.4-5.0) Lipase 125 U/L (73-393) Laboratory results reviewed by me Medications Administered Medications (Trade) Dose Ordered Sig/Antonia Route Start Time Stop Time Status Last Admin Dose Admin Sodium Chloride 1,000 ml @ 999 mls/hr Q1H1M STAT IV 05/11/17 18:50 05/11/17 19:50 DC 05/11/17 19:11 999 MLS/HR Ketorolac Tromethamine (Toradol Inj) 15 mg NOW STAT IV 05/11/17 18:50 05/11/17 18:53 DC 05/11/17 19:09 15 MG Tamsulosin HCl (Flomax Cap) 0.4 mg NOW ONCE PO 05/11/17 20:45 05/11/17 20:47 DC 05/11/17 21:13 0.4 MG Ketorolac Tromethamine (Toradol Inj) 15 mg NOW STAT IV 05/11/17 21:44 05/11/17 21:45 DC 05/11/17 21:51 15 MG Lorazepam (Ativan 1MG Home Pack) 1 homepack UD ONCE PO 05/11/17 22:00 11/23/17 22:01 DC 05/11/17 22:16 1 HOMEPACK Phenazopyridine HCl (Phenazopyridine HCl 200MG Home Pack) 1 homepack UD ONCE PO 05/11/17 22:00 05/11/17 22:01 DC 05/11/17 22:16 1 HOMEPACK ED Course 1834: The patient was evaluated in room C7. A complete history and physical exam was performed. 1849: Toradol Inj, 15 mg, IV; Sodium Chloride 1000 ml @ 999 mls/hr IV. 1930: The patient was anxious appearing and was administered Ativan. Ordered Ativan 0.5 mg PO. Medical Decision I reviewed the patient's past medical history, medications, and the nursing notes as described above. The patient's presentation and history were concerning for UTI, pyelonephritis, urinary stone, dehydration, electrolyte imbalance, urethritis, and malignancy. The patient is a 47-year-old woman with a past medical history of recurring UTIs since November presents to emergency Department with persistent dysuria symptoms after being seen originally on 04/25 with dysuria and was found to have a pansensitive Escherichia coli UTI and completed treatment with Bactrim. However, the patient has continued to have dysuria since that visit and subsequently presents for the fourth time for this complaint per history of present illness. Of note, the patient was seen by VISUAL MERCHANDISING DIRECTOR on 05/08 and reports she had an unremarkable exam with negative UA but cultures pending and was advised to f/u with urology. On arrival the patient is uncomfortable but in no acute distress. She is afebrile with stable vital signs. Labs are notable for sodium of 128 which is similar to prior in the setting of polydipsia. UA was nitrite positive however sample is dirty with positive epithelial cells and 2+ bacteria but only 1-5 WBC. Given this is a similar UA to previous two UAs which grew only normal hector, patient is agreeable to hold on antibiotics at this time. CT abd/pel with left renal cyst and fullness of left renal pelvis without hydroureter nephrosis and was otherwise negative for any emergent findings. After further discussion the patient reports that she has a history of stress incontinence since the of her son 18 years ago and does report pelvic pressure prior to onset of her symptoms of dysuria. Given recent negative UA's in setting of dysuria it is possible that patient's symptoms are 2 /2 dysfunctional urination. Thus will attempt trial of Tamsulosin with prescription strength ibuprofen. 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 Given the patient's anxiety surrounding the symptoms she was previously prescribed a small dose of Ativan. Since these sx are persisting it is reasonable to extend this prescription until she is able to follow up with urology next week on May 19. I did discuss with case management who will attempt to call the urology clinic to see if the patient would be able to the seen sooner if there are any cancellations. Findings and plan for follow-up reviewed with patient. Patient agreeable and d/c'd per discharge instructions. Medication Reconcilliation Current Medication List: was personally reviewed by me Blood Pressure Screening Patient's blood pressure: Elevated blood pressure Blood pressure disposition: Elevated BP felt to be situational Impression Primary Impression: Dysuria Additional Impressions: Dysfunctional voiding of urine Hyponatremia Scribe Attestation The scribe's documentation has been prepared under my direction and personally reviewed by me in its entirety. I confirm that the note above accurately reflects all work, treatment, procedures, and medical decision making performed by me. Departure Information Dispostion Home / Self-Care Prescriptions Ibuprofen Tab (MOTRIN) 800 Mg Tab 800 MG PO Q8H Y for Pain, #30 TAB Prov: Eran Blue M.D. 05/11/17 Tamsulosin Hcl (FLOMAX) 0.4 Mg Cap 0.4 MG PO DAILY, #10 CAP Prov: Eran Blue M.D. 05/11/17 Lorazepam (Lorazepam) 0.5 Mg Tab 1 TAB PO BID Y for Anxiety, #7 TABS Prov: Eran Blue M.D. 05/11/17 Phenazopyridine HCl (Pyridium) 200 Mg Tab 200 MG PO TID for Bladder Pain, #6 TAB Prov: Eran Blue M.D. 05/11/17 Referrals Varun Winn DO (PCP) Mario Jackson M.D. Patient Instructions ED Dysuria Uncertain Cause, ED Hyponatremia, My [facility] Additional Instructions Please follow up with Urology as scheduled. Our case management team will attempt to facilitate an earlier appointment if possible. You should also follow up with your primary care physician in the next week for re-evaluation to discuss your symptoms as well as your low sodium and to monitor your blood pressure. The cause of your urinary symptoms are unclear at this time but may be due to but not limited to compression of your urethra due to a weak pelvic floor. Urologic evaluation with possible cystoscopy may have clarify the cause of your symptoms and may or may not require Uro-gynecology referral. Your sodium was also again low today and should be reviewed with your primary care doctor. Limit you water intake as previously instructed. Otherwise, your exam and lab results did not show signs of an emergent condition at this time. Take tamsulosin as directed to help with possible urethral compression. Acetaminophen and Ibuprofen (as prescribed) for pain. Pyridium for dysuria as directed. Ativan for anxiety associated with pain as needed. Return to the emergency department for worsening symptoms as described in the accompanying instructions. Problem Qualifiers
[2017-05-11] MEDS ORDERED: SODIUM CHLORIDE 0.9% 1000ML 1,000 ML IV STA (18:50)
[2017-05-11] MEDS ORDERED: KETOROLAC TROMETHAMINE 30 MG/ML VIAL IV STA ×2 (18:50→21:44)
[2017-05-11 19:27] LABS: BASO % 0.1 %; BASO ABS # 0.01 K/uL (0-0.2); COMPLETE YES; EOS % 0.6 %; HEMATOCRIT 35.8 % (37-47); IG% 0.3 %; LYMPH % 30.6 %; LYMPH ABS # 3.03 K/uL (1.2-3.4); MEAN CELL VOLUME 89.7 fL (80-100); MEAN CORPUSCULAR HEMOGLOBIN 32.3 pg (25-34); MEAN PLATELET VOLUME 9.5 fL (7.4-10.4); MONO % 6.3 %; NEUT % 62.1 %; PLATELET COUNT 278 K/uL (130-400); RED BLOOD COUNT 3.99 M/uL (4.2-5.4)
[2017-05-11 19:29] LABS: URINE APPEARANCE CLEAR (CLEAR); URINE BILIRUBIN NEG (NEG); URINE COLOR DK YELLOW; URINE NITRITE POS (NEG); URINE PH 6.5 (4.5-7.5); UROBILINOGEN NEG (NEG)
[2017-05-11 19:30] LABS: MANUAL MICROSCOPIC REQUIRED? YES; REVIEW REQ? NO
[2017-05-11] MEDS ORDERED: LORAZEPAM 0.5 MG TAB PO STA (19:31)
[2017-05-11 19:44] LABS: ALT/SGPT 28 U/L (12-78); BLOOD UREA NITROGEN 8 mg/dl (7-18); BUN/CREATININE RATIO 9.5 (10-20); CALCIUM 8.8 mg/dl (8.5-10.1); CARBON DIOXIDE 28 mmol/L (21-32); CHLORIDE 96 mmol/L (98-107); CREATININE 0.79 mg/dl (0.60-1.20); GLUCOSE 98 mg/dl (70-99); POTASSIUM 3.6 mmol/L (3.5-5.1); SODIUM 128 mmol/L (136-145)
[2017-05-11 19:47] LABS: ALKALINE PHOSPHATASE 48 U/L (45-117); AST/SGOT 16 U/L (15-37)
[2017-05-11 19:53] LABS: URINE BACTERIA 2+ (NEG)
[2017-05-11 19:54] LABS: URINE RBC 0-4 /hpf (0-4); ZZUR CULT IF INDIC CLEAN CATCH YES
[2017-05-11] MEDS ORDERED: OPTIRAY 320 IV PRN (20:15)
--- NOTE | 2017-05-11 20:20 | DIAGNOSTIC IMAGING REPORT ---
CT ABD/PELVIS IV CONTRAST ONLY CLINICAL HISTORY: Suprapubic and costophrenic vertebral angle pain. COMPARISON STUDY: Renal ultrasound dated 05/04/2017 TECHNIQUE: Following the IV administration of 115 mL of Optiray-320, CT scan of the abdomen and pelvis was performed from the lung bases to the proximal femurs. Images are reviewed in the axial, sagittal, and coronal planes. IV contrast was administered without complication. A dose lowering technique was utilized adhering to the principles of ALARA. CT DOSE: 241.51 mGy.cm FINDINGS: Lower chest: There are minimal dependent atelectatic changes. Liver: The contrast-enhanced liver is normal in size, contour, and attenuation. There is no intrahepatic biliary ductal dilatation. The hepatic veins and portal veins are patent. There is a small calcification the region the falciform ligament, and adjacent to the gallbladder neck. Gallbladder: Unremarkable. Spleen: Normal in size and attenuation. Pancreas: Unremarkable. Adrenal glands: Unremarkable. Kidneys: There is an 8 mm left renal hypodensity, likely representing a cyst. There are no solid renal masses. There are no perinephric fluid collections. There is mild dilatation of the left renal pelvis. There is no significant ureteral dilatation. No ureteral or bladder calculi are visualized. Bowel: There are no transition zones indicate bowel obstruction. There is no acute diverticulitis. The appendix appears normal. Peritoneum: There is no intraperitoneal free air or abdominal ascites. There is a small upper abdominal fat-containing ventral hernia. Vasculature: The abdominal aorta is normal in course and caliber. Adenopathy: None. Pelvic viscera: The bladder, and pelvic viscera are unremarkable. Skeletal structures: There is left SI joint sclerosis. IMPRESSION: 1. No evidence of bowel obstruction. No evidence of free air 2. Mild left renal pelviectasis. No ureteral or bladder calculi identified 3. 8 mm left renal cyst 4. Normal appendix. No evidence of acute diverticulitis. 5. Small fat-containing ventral hernia 6. Left SI joint sclerosis Electronically signed by: Giovani Galaviz M.D. 05/11/2017 8:18 PM Dictated Date/Time: 05/11/2017 8:11 PM
[2017-05-11] MEDS ORDERED: TAMSULOSIN HCL 0.4 MG CAP PO ONE ×2 (20:45→22:00)
[2017-05-11] MEDS ORDERED: IBUPROFEN 800 MG TAB PO STA (21:47)
[2017-05-11 21:53] VITALS: BP 129/87; PULSE 82; TEMP 36.8; O2SAT 96
[2017-05-11] MEDS ORDERED: TAMS0.4C38 PO (21:59)
[2017-05-11] MEDS ORDERED: IBUP-1451 PO (21:59)
[2017-05-11] MEDS ORDERED: PHEN-876 PO (21:59)
[2017-05-11] MEDS ORDERED: ATV5X PO (21:59)
[2017-05-11] MEDS ORDERED: ATIVAN 1MG HOMEPACK PO ONE (22:00)
[2017-05-11] MEDS ORDERED: PHENAZOPYRIDINE HOME PACK 200 MG VIAL PO ONE (22:00)
== END 2017-05-11 22:19 | disposition home or self-care (01) ==
LOC: C.EDB 18:19 → C.EDC 22:19
DX: R30.0 Dysuria (principal); R39.12 Poor urinary stream; E87.1 Hypo-osmolality and hyponatremia; Z82.49 Family history of ischemic heart disease and other diseases of the circulatory system

== ENCOUNTER → 2017-05-15 | Outpatient (CLI) | payer BC ==
[~2017-05-15] MED LIST changes: +ATV5X PO; -CEFU1TAB36 PO; +IBUP-1451 PO; -ONDA4TAB10 SL; +TAMS0.4C38 PO
== END | disposition home or self-care (01) ==
LOC: C.LABSPEC 17:22
PROVIDERS: ATTEND Urology
DX: R10.2 Pelvic and perineal pain (principal); R30.0 Dysuria

== ENCOUNTER → 2017-05-23 | Outpatient (CLI) | payer BC ==
[~2017-05-23] MED LIST changes: -LORA-741 PO; -TAMS0.4C38 PO
== END | disposition home or self-care (01) ==
LOC: C.PAPS 17:41
PROVIDERS: ATTEND Obstetrics & Gynecology
DX: Z01.419 Encounter for gynecological examination (general) (routine) without abnormal findings (principal)

== ENCOUNTER → 2017-05-26 | Outpatient (CLI) | payer BC | END | disposition home or self-care (01) | LOC: C.LABSPEC 14:49 | PROVIDERS: ATTEND Nurse Practitioner Adult Health | DX: R39.9 Unspecified symptoms and signs involving the genitourinary system (principal) ==

== ENCOUNTER 2018-01-23 11:25 | Inpatient (IN) | payer OTHER ==
[~2018-01-23] VITALS: Ht 160 cm; Wt 59.5 kg
[~2018-01-23 11:25] MED LIST changes: -IBUP-1451 PO; -PHEN-876 PO
--- NOTE | 2018-01-23 11:41 | EMERGENCY ROOM VISIT NOTE ---
History Report prepared by Geoff: Bill Joyner Under the Supervision of: Dr. Miko Mccurdy M.D. First contact with patient: 11:30 Chief Complaint: BACK PAIN Stated Complaint: BACK PAIN History of Present Illness The patient is a 47 year old female with no chronic past medical history who presents to the ED with a cc of back pain beginning about two weeks ago. The patient states that the back pain is "excruciating on the left side" and radiates down the left leg. She notes that she took 800mg of ibuprofen with no relief. Per the patient's , the patient also has a "violent cough" that irritates the back pain. He reports that the patient saw a doctor for the cough and received steroids with no relief so they saw another doctor who prescribed cough syrup that helped slightly. The patient also reports she has had stress incontinence but it is unrelated to this situation. She also states she has had an ablation which prevents her from getting her period. Negative for nausea and vomiting. Source of History: patient, spouse/significant other Onset: 2 weeks ago Position: back (left side) Symptom Intensity: excruciating Quality: other (radiating ) Associated Symptoms: + cough, No nausea, No vomiting Review of Systems See HPI for pertinent positives and negatives. A total of ten systems were reviewed and were otherwise negative. Past Medical & Surgical Medical Problems: (1) Intractable back pain (2) No chronic diseases present Family History FHx: cancer Gallbladder disease Heart disease Hypertension Social History Smoking Status: Never Smoker Drug Use: none Marital Status: Housing Status: lives with family Occupation Status: employed Current/Historical Medications Scheduled Tamsulosin Hcl (Flomax), 0.4 MG PO HS Thyroid ([place] Thyroid), 60 MG PO Q2D Thyroid ([place] Thyroid), 30 MG PO Q2D Scheduled PRN Guaifenesin-Codeine (Guaiatussin Ac), 10 ML PO Q6H PRN for Cough Lorazepam (Lorazepam), 1 TAB PO BID PRN for Anxiety Allergies Coded Allergies: Penicillins (Verified Allergy, Unknown, HIVES, 01/23/18) Physical Exam Vital Signs Date Time Temp Pulse Resp B/P (MAP) Pulse Ox O2 Delivery O2 Flow Rate FiO2 01/23/18 18:00 93 18 117/92 96 Room Air 01/23/18 17:31 93 20 125/82 96 Room Air 01/23/18 16:15 94 18 110/75 100 Room Air 01/23/18 14:35 94 20 122/71 97 Room Air 01/23/18 13:40 80 20 115/72 95 Room Air 01/23/18 12:51 79 20 118/82 96 Room Air 01/23/18 11:35 37.1 98 20 127/79 97 Room Air Physical Exam GENERAL: Awake, alert, well-appearing, NAD HENT: Normocephalic, atraumatic. EYES: Normal conjunctiva. Sclera non-icteric. PERRL. No anisocoria. NECK: Supple. No nuchal rigidity. FROM. RESPIRATORY: CTAB, no rhonchi, wheezing, crackles CARDIAC: RRR, no MRG ABDOMEN: Soft, NTND, BS+ MSK: No chest wall TTP, no LE edema. No midline lower back tenderness, lower back pain or step-offs, positive SLR NEURO: GCS 15, CN 2-12 intact, moves all 4s on command, no saddle anesthesia, NVI distally, SP/DP/Tib nerves intact SKIN: No rash or jaundice noted. Medical Decision & Procedures ER Provider Diagnostic Interpretation: Radiology results as stated below per my review and radiologist interpretation: LUMBAR SPINE MRI HISTORY: Left-sided back pain. TECHNIQUE: Multiplanar multisequence MRI of the lumbar spine was performed without the use of contrast. COMPARISON: Lumbar spine radiograph 01/23/2018. FINDINGS: For the purpose of the report the L5-S1 disc space will be located on axial image 27 of 30. There is a fracture involving the posterior superior endplate of L5 which demonstrates 2 mm of depression and 4 mm of retropulsion primarily along the left side. This is consistent with an acute fracture. There is mild edema within the anterior epidural space posterior to the L5 vertebral body. Normal marrow signal intensity seen throughout the remaining lumbar spine. The conus joints at the L1 level. Severe bladder distention. Minimal disc space narrowing and disc desiccation L5-S1. A few small T1 and T2 hypointense masses within the uterus with the largest measuring 12 mm. These are consistent with fibroids. L1-L2: No significant central canal or neural foraminal narrowing. L2-L3: No significant central canal or neural foraminal narrowing. L3-L4: No significant central canal or neural foraminal narrowing. L4-L5: Mild central canal narrowing due to the retropulsed fragment. This fragment abuts the transiting right L5 nerve root and compresses the transiting left L4 nerve root. This is best seen on axial image 23 of 30. L5-S1: Small broad-based posterior disc bulge without significant central canal narrowing. There is mild left-sided neural foraminal narrowing. IMPRESSION: 1. A small acute fracture involving the posterior superior endplate of the L5 vertebral body which demonstrates up to 4 mm of retropulsion. This results in mild central canal narrowing at L4-L5. This abuts the transiting right L5 nerve root and compresses the transiting left L5 nerve root. 2. Severe bladder distention. If the patient cannot void, recommend catheterization. Electronically signed by: Romaine Manzano M.D. 01/23/2018 4:26 PM Dictated Date/Time: 01/23/2018 4:15 PM CHEST ONE VIEW PORTABLE CLINICAL HISTORY: Cough. COMPARISON STUDY: No previous studies for comparison. FINDINGS: Lung volumes are normal. No pneumothorax or pleural effusion is noted. There is no consolidation or evidence for pulmonary edema. Cardiac size is normal. Mediastinal contours are normal. IMPRESSION: No acute cardiopulmonary findings. Electronically signed by: Leonard Pelayo M.D. 01/23/2018 1:43 PM Dictated Date/Time: 01/23/2018 1:43 PM LUMBAR SPINE 2 OR 3 VIEWS CLINICAL HISTORY: L LBP w/ sciatica type symptoms pain. Neuropathy. COMPARISON STUDY: No previous studies for comparison. FINDINGS: Normal alignment of the vertebral bodies. Minimal degenerative disc change L5-S1. No evidence for compression deformity. No evidence for subluxation. Nonobstructive bowel pattern. IMPRESSION: Minimal degenerative change L5-S1. Otherwise negative study. The above report was generated using voice recognition software. It may contain grammatical, syntax or spelling errors. Electronically signed by: Huang West M.D. 01/23/2018 12:50 PM Dictated Date/Time: 01/23/2018 12:49 PM Laboratory Results Test 01/23/18 16:09 Prothrombin Time 10.6 SECONDS (9.0-12.0) Prothromb Time International Ratio 1.0 (0.9-1.1) Activated Partial Thromboplast Time 27.5 SECONDS (21.0-31.0) Partial Thromboplastin Ratio 1.1 Phosphorus Level 3.5 mg/dl (2.5-4.9) Magnesium Level 2.2 mg/dl (1.8-2.4) Medications Administered Medications (Trade) Dose Ordered Sig/Antonia Route Start Time Stop Time Status Last Admin Dose Admin Methylprednisolone Sodium Succinate (Solu-Medrol IV) 125 mg NOW STAT IV 01/23/18 11:47 01/23/18 11:49 DC 01/23/18 12:10 125 MG Ketorolac Tromethamine (Toradol Inj) 30 mg NOW STAT IV 01/23/18 11:47 01/23/18 11:49 DC 01/23/18 12:11 30 MG Acetaminophen (Tylenol Tab) 650 mg NOW STAT PO 01/23/18 11:47 01/23/18 11:49 DC 01/23/18 12:10 650 MG Morphine Sulfate (MoRPHine SULFATE INJ) 4 mg NOW STAT IV 01/23/18 11:47 01/23/18 11:49 DC 01/23/18 12:11 4 MG Fentanyl Citrate (Fentanyl Inj) 75 mcg NOW ONCE IV 01/23/18 13:30 01/23/18 13:31 DC 01/23/18 13:22 75 MCG Diazepam (Valium Inj) 5 mg STK-MED ONCE .ROUTE 01/23/18 14:21 01/23/18 14:22 DC 01/23/18 14:25 5 MG Hydromorphone HCl (Dilaudid Inj) 1 mg NOW STAT IV 01/23/18 17:02 01/23/18 17:04 DC 01/23/18 18:07 1 MG Sodium Chloride 1,000 ml @ 100 mls/hr Q10H STAT IV 01/23/18 17:02 01/23/18 20:11 DC 01/23/18 18:05 100 MLS/HR Ketorolac Tromethamine (Toradol Inj) 30 mg Q6H PRN IV 01/23/18 18:30 01/23/19 23:00 01/24/18 10:16 30 MG ED Course 1133: The patient was evaluated in room A12B. A complete history and physical exam was performed. 1343: I checked on the patient and she says she feels a little better so she will try to ambulate in 15 minutes and see how she feels. 1530: I reevaluated the patient and her condition is stable 1659: Discussed the patient's case with Dr. Albarado - Orthopedics - and he agrees that the patient should be admitted but he would like the patient to be admitted to medicine. 1708: [facility] the [facility] The patient will be evaluated for further treatment and disposition. Medical Decision Nursing notes reviewed. Ancillary studies and prior records reviewed. The patient is a 47 year old female with no chronic past medical history who presents to the ED with a cc of back pain beginning about two weeks ago. Differential diagnosis: Etiologies such as musculoskeletal, disc herniation, fracture, aortic disease, metastatic disease, cord compression, discitis, infection, renal colic, gastrointestinal, acute exacerbation of chronic back pain, sciatica, cauda equina, as well as others were entertained. Patient was seen and evaluated the bedside. Patient had been complaining some persistent cough which should become more violent causing her some severe left- sided back pain. Patient states the pain does shoot down her left lower extremity. Patient states that she was seen by her physical therapist today who stated she may have some radicular type discomfort. On exam the patient does not have any pain that is able to be elicited on palpation. On the patient does lie on her back it does worsen her pain. Patient does have a positive straight leg raise. No saddle anesthesia patient does have a history of stress incontinence but no saddle anesthesia or worsening incontinence. Less likely cauda equina. The patient is otherwise neuro intact distally in the left lower extremity. Patient denies any other urinary symptoms. Patient did have lumbar films completed which did not show any evidence of any fracture dislocation. The patient does not have any other red flag signs or symptoms that would require more advanced imaging at this time. Patient does not use IV drugs, no fever, no cancer history, no unexplained weight loss, no saddle anesthesia. Patient reportedly was still having significant discomfort so the patient did have additional pain medication ordered. Patient did have an MRI of the L-spine that showed the patient did have a superior endplate deformity and fracture with retropulsion and canal with associated lumbar radiculopathy. I did speak with the on-call spinal surgeon who stated this is likely nonoperative that he would see her tomorrow. The patient was admitted for pain control as she has had persistent pain. Medication Reconcilliation Current Medication List: was personally reviewed by me Blood Pressure Screening Patient's blood pressure: Normal blood pressure Consults Time Called: 1856 Consulting Physician: Dr. Albarado - Orthopedics Returned Call: [phone] Albarado - Orthopedic Spine - and he agrees that the patient should be admitted and would like the patient to be admitted to medicine. Impression Primary Impression: Compression fracture of L4 lumbar vertebra Additional Impression: Back pain with sciatica Scribe Attestation The scribe's documentation has been prepared under my direction and personally reviewed by me in its entirety. I confirm that the note above accurately reflects all work, treatment, procedures, and medical decision making performed by me. Departure Information Dispostion Being Evaluated By Hospitalist Referrals Varun Winn DO (PCP) Forms HOME CARE DOCUMENTATION FORM, IMPORTANT VISIT INFORMATION Patient Instructions My [facility] Health Problem Qualifiers Primary Impression: Compression fracture of L4 lumbar vertebra Encounter type: initial encounter Fracture type: closed Qualified Codes: S32.040A - Wedge compression fracture of fourth lumbar vertebra, initial encounter for closed fracture
[2018-01-23] MEDS ORDERED: ACETAMINOPHEN 325 MG TAB PO STA (11:47)
[2018-01-23] MEDS ORDERED: MoRPHine SULFATE 4 MG/ML 1 ML CARP\\VIAL IV STA (11:47)
[2018-01-23] MEDS ORDERED: KETOROLAC TROMETHAMINE 30 MG/ML VIAL IV STA (11:47)
[2018-01-23] MEDS ORDERED: METHYLPREDNISOLONE 125 MG VIAL IV STA (11:47)
--- NOTE | 2018-01-23 12:51 | DIAGNOSTIC IMAGING REPORT ---
LUMBAR SPINE 2 OR 3 VIEWS CLINICAL HISTORY: L LBP w/ sciatica type symptoms pain. Neuropathy. COMPARISON STUDY: No previous studies for comparison. FINDINGS: Normal alignment of the vertebral bodies. Minimal degenerative disc change L5-S1. No evidence for compression deformity. No evidence for subluxation. Nonobstructive bowel pattern. IMPRESSION: Minimal degenerative change L5-S1. Otherwise negative study. The above report was generated using voice recognition software. It may contain grammatical, syntax or spelling errors. Electronically signed by: Huang West M.D. 01/23/2018 12:50 PM Dictated Date/Time: 01/23/2018 12:49 PM
[2018-01-23] MEDS ORDERED: THY/30 PO (13:05)
[2018-01-23] MEDS ORDERED: GUAISYP8 PO (13:05)
[2018-01-23] MEDS ORDERED: TAMS0.4C38 PO (13:05)
[2018-01-23] MEDS ORDERED: FENTANYL CITRATE INJ 50 MCG/1 ML 2 ML VIAL IV ONE (13:30)
--- NOTE | 2018-01-23 13:45 | DIAGNOSTIC IMAGING REPORT ---
CHEST ONE VIEW PORTABLE CLINICAL HISTORY: Cough. COMPARISON STUDY: No previous studies for comparison. FINDINGS: Lung volumes are normal. No pneumothorax or pleural effusion is noted. There is no consolidation or evidence for pulmonary edema. Cardiac size is normal. Mediastinal contours are normal. IMPRESSION: No acute cardiopulmonary findings. Electronically signed by: Leonard Pelayo M.D. 01/23/2018 1:43 PM Dictated Date/Time: 01/23/2018 1:43 PM
[2018-01-23] MEDS ORDERED: DIAZEPAM INJ 5 MG/ML 2 ML CARP IV STA (14:02)
[2018-01-23] MEDS ORDERED: DIAZEPAM 5 MG/ML INJ 10ML VIAL ONE (14:21)
--- NOTE | 2018-01-23 16:27 | DIAGNOSTIC IMAGING REPORT ---
LUMBAR SPINE MRI HISTORY: Left-sided back pain. TECHNIQUE: Multiplanar multisequence MRI of the lumbar spine was performed without the use of contrast. COMPARISON: Lumbar spine radiograph 01/23/2018. FINDINGS: For the purpose of the report the L5-S1 disc space will be located on axial image 27 of 30. There is a fracture involving the posterior superior endplate of L5 which demonstrates 2 mm of depression and 4 mm of retropulsion primarily along the left side. This is consistent with an acute fracture. There is mild edema within the anterior epidural space posterior to the L5 vertebral body. Normal marrow signal intensity seen throughout the remaining lumbar spine. The conus joints at the L1 level. Severe bladder distention. Minimal disc space narrowing and disc desiccation L5-S1. A few small T1 and T2 hypointense masses within the uterus with the largest measuring 12 mm. These are consistent with fibroids. L1-L2: No significant central canal or neural foraminal narrowing. L2-L3: No significant central canal or neural foraminal narrowing. L3-L4: No significant central canal or neural foraminal narrowing. L4-L5: Mild central canal narrowing due to the retropulsed fragment. This fragment abuts the transiting right L5 nerve root and compresses the transiting left L4 nerve root. This is best seen on axial image 23 of 30. L5-S1: Small broad-based posterior disc bulge without significant central canal narrowing. There is mild left-sided neural foraminal narrowing. IMPRESSION: 1. A small acute fracture involving the posterior superior endplate of the L5 vertebral body which demonstrates up to 4 mm of retropulsion. This results in mild central canal narrowing at L4-L5. This abuts the transiting right L5 nerve root and compresses the transiting left L5 nerve root. 2. Severe bladder distention. If the patient cannot void, recommend catheterization. Electronically signed by: Romaine Manzano M.D. 01/23/2018 4:26 PM Dictated Date/Time: 01/23/2018 4:15 PM
[2018-01-23] MEDS ORDERED: SODIUM CHLORIDE 0.9% 1000ML 1,000 ML IV STA (17:02)
[2018-01-23] MEDS ORDERED: HYDROmorphone INJ 1 MG/ML SYR IV STA (17:02)
[2018-01-23] MEDS ORDERED: HYDROmorphone INJ 1 MG/ML SYR IM PRN (18:30)
[2018-01-23] MEDS ORDERED: ACETAMINOPHEN 325 MG TAB PO PRN (18:30)
[2018-01-23] MEDS ORDERED: ONDANSETRON INJ 2 MG/ML 2 ML VIAL IV PRN (18:30)
[2018-01-23] MEDS ORDERED: LORAZEPAM 0.5 MG TAB PO PRN (18:45)
--- NOTE | 2018-01-23 19:00 | History and Physical ---
History & Physical Date & Time of Service: Jan 23, 2018 at 18:30 Chief Complaint: Back Pain Primary Care Physician: RV. Kenney MD History of Present Illness Source: patient Patient is a pleasant 47yo female with history of hypothyroidism, voiding dysfunction presenting with acute low back pain with radicular symptoms. Patient states that she began coughing on 01/11. She was seen by her PCP on and was given a steroid taper and cough tablets with no relief. Her cough worsened. On Monday she was coughing violently and heard a pop in her back - she then experienced sharp pain in her back with radiating pain down the posterior portion of her left leg. She e-mailed her physical therapist who later evaluated her and diagnosed her with a pinched nerve. She was instructed to stretch and take pain medications. Pain progressed - patient unable to sit, walk or move without severe discomfort. She has been unable to ambulate or perform ADLs. Her has been caring for her. She denies fevers, chills, back trauma, fall. Denies bowel or bladder incontinence. She denies weakness of the limbs. Does admit to some numbness and tingling on the lateral portion of the left leg as well as muscle twitching. Pain is 2/10 when laying flat and 10/10 with movement. No additional complaints at this time. Cough has markedly improved after being given cough medicine with codeine. ER Course: Dilaudid 1mg, Valium 5mg, Fentanyl 75mg, Solumedrol 125mg, Toradol 30mg, Tylenol 650mg, Morphine 4mg Past Medical/Surgical History Medical Problems: Voiding dysfunction Hypothyroidism Surgical History: Uterine Ablation Family History FHx: cancer Gallbladder disease Heart disease Hypertension Social History Smoking Status: Never Smoker Smokeless Tobacco Use: No Alcohol Use: socially Drug Use: none Marital Status: Housing status: lives with family Occupational Status: employed Allergies Coded Allergies: Penicillins (Verified Allergy, Unknown, HIVES, 01/23/18) Home Medications Scheduled Tamsulosin Hcl (Flomax), 0.4 MG PO HS Thyroid ([place] Thyroid), 60 MG PO Q2D Thyroid ([place] Thyroid), 30 MG PO Q2D Scheduled PRN Guaifenesin-Codeine (Guaiatussin Ac), 10 ML PO Q6H PRN for Cough Lorazepam (Lorazepam), 1 TAB PO BID PRN for Anxiety Review of Systems Constitutional: No fever, No chills, No sweats Eyes: No worsening of vision ENT: No sore throat Respiratory: No cough, No sputum, No wheezing, No shortness of breath, No dyspnea on exertion Cardiovascular: No chest pain Abdomen: No pain, No nausea, No vomiting, No diarrhea Musculoskeletal: No joint pain Genitourinary - Female: No dysuria, No urinary frequency, No urinary urgency, No urinary incontinence, No urinary retention Neurologic: + numbness/tingling, No paralysis Psychiatric: No depression symptoms Endocrine: No fatigue Hematologic / Lymphatic: No abnormal bleeding/bruising Integumentary: No rash Physical Exam Vital Signs Date Time Temp Pulse Resp B/P (MAP) Pulse Ox O2 Delivery O2 Flow Rate FiO2 01/23/18 18:00 93 18 117/92 96 Room Air 01/23/18 16:15 94 18 110/75 100 Room Air 01/23/18 14:35 94 20 122/71 97 Room Air 01/23/18 13:40 80 20 115/72 95 Room Air 01/23/18 12:51 79 20 118/82 96 Room Air 01/23/18 11:35 37.1 98 20 127/79 97 Room Air General: patient resting comfortably in bed in prone position, NAD, AA&O x 4 Skin: warm, dry, intact, no rashes or lesions HEENT: NC/AT, PERRL, EOMI, anicteric sclera, conjunctiva without injection, nares patent, moist mucus membranes, no oropharyngeal lesions, neck supple, trachea midline, no thyromegaly, no LAD Heart: +S1/S2, regular, no m/r/g Lungs: equal air entry bilaterally, no rales/rhonchi/wheezes Abdomen: soft, NT/ND, no masses/organomegaly/ascites Extremities: warm, well perfused, no clubbing/cyanosis or edema, 2+ palpable pulses in UE/LE bilaterally Neuro: AA&Ox4, MS 5/5 in UE/LE bilaterally, diminished sensation to light touch in lateral portion of left leg, reflexes intact bilaterally Diagnostics Laboratory Results Results Past 24 Hours Test 01/23/18 17:02 Range/Units Diagnostic Radiology LUMBAR SPINE MRI HISTORY: Left-sided back pain. TECHNIQUE: Multiplanar multisequence MRI of the lumbar spine was performed without the use of contrast. COMPARISON: Lumbar spine radiograph 01/23/2018. FINDINGS: For the purpose of the report the L5-S1 disc space will be located on axial image 27 of 30. There is a fracture involving the posterior superior endplate of L5 which demonstrates 2 mm of depression and 4 mm of retropulsion primarily along the left side. This is consistent with an acute fracture. There is mild edema within the anterior epidural space posterior to the L5 vertebral body. Normal marrow signal intensity seen throughout the remaining lumbar spine. The conus joints at the L1 level. Severe bladder distention. Minimal disc space narrowing and disc desiccation L5-S1. A few small T1 and T2 hypointense masses within the uterus with the largest measuring 12 mm. These are consistent with fibroids. L1-L2: No significant central canal or neural foraminal narrowing. L2-L3: No significant central canal or neural foraminal narrowing. L3-L4: No significant central canal or neural foraminal narrowing. L4-L5: Mild central canal narrowing due to the retropulsed fragment. This fragment abuts the transiting right L5 nerve root and compresses the transiting left L4 nerve root. This is best seen on axial image 23 of 30. L5-S1: Small broad-based posterior disc bulge without significant central canal narrowing. There is mild left-sided neural foraminal narrowing. IMPRESSION: 1. A small acute fracture involving the posterior superior endplate of the L5 vertebral body which demonstrates up to 4 mm of retropulsion. This results in mild central canal narrowing at L4-L5. This abuts the transiting right L5 nerve root and compresses the transiting left L5 nerve root. 2. Severe bladder distention. If the patient cannot void, recommend catheterization. Electronically signed by: Romaine Manzano M.D. 01/23/2018 4:26 PM Dictated Date/Time: 01/23/2018 4:15 PM CHEST ONE VIEW PORTABLE CLINICAL HISTORY: Cough. COMPARISON STUDY: No previous studies for comparison. FINDINGS: Lung volumes are normal. No pneumothorax or pleural effusion is noted. There is no consolidation or evidence for pulmonary edema. Cardiac size is normal. Mediastinal contours are normal. IMPRESSION: No acute cardiopulmonary findings. Electronically signed by: Leonard Pelayo M.D. 01/23/2018 1:43 PM Dictated Date/Time: 01/23/2018 1:43 PM LUMBAR SPINE 2 OR 3 VIEWS CLINICAL HISTORY: L LBP w/ sciatica type symptoms pain. Neuropathy. COMPARISON STUDY: No previous studies for comparison. FINDINGS: Normal alignment of the vertebral bodies. Minimal degenerative disc change L5-S1. No evidence for compression deformity. No evidence for subluxation. Nonobstructive bowel pattern. IMPRESSION: Minimal degenerative change L5-S1. Otherwise negative study. The above report was generated using voice recognition software. It may contain grammatical, syntax or spelling errors. Electronically signed by: Huang West M.D. 01/23/2018 12:50 PM Impression Assessment and Plan 47yo female with history of voiding dysfunction, hypothyroidism presenting with acute onset back pain with sciatica after coughing fit. Patient found to have L5 endplate fraction with retropulsion resulting in canal narrowing at L4-L5 and L5 nerve root compression. Patient in significant pain, minimal relief only from multiple agents administered in ER. 1. L5 endplate fracture/retropulsion/canal stenosis/L5 nerve root compression - patient with left lateral leg numbness. Bowels and bladder intact although patient has a history of voiding dysfunction for which she takes Flomax. Pain only marginally controlled at present. She was given Valium, Fentanyl, Dilaudid , Solumedrol, Toradol, Tylenol and Morphine in ER. Concern for underlying osteoporosis/osteopenia given the fact that fracture occurred with coughing. May consider DEXA scan -Admit to medical floor -Consultation with Orthopedic Surgery- Dr. Albarado, appreciate assistance with this case -Pain control with Toradol 30mg IV q 6 hours -Dilaudid 1mg IV q 4 hours -Flexeril 5mg po q AM -Heat pack PRN 2. Urinary dysfunction - patient with history of the same -Continue Flomax 0.4mg po daily -Monitor I/O with bladder scan and straight cath if not able to void 3. Hypothyroidism - stable, chronic -Continue [place] thyroid 4. Cough - improved. -Continue guaifenasin with codeine 5. F/E/N - Heplock. Monitor electrolytes and replete as needed. Regular diet as tolerated 6. Ppx - Lovenox 40mg daily 7. Code - Full per discussion with patient 8. Dispo - admit to general medical floor Resuscitation Status Full VTE Prophylaxis Will order VTE Prophylaxis: No Reason for no VTE drug order: Treatment not indicated Reason no Mechanical VTE Order: Treatment not indicated
[2018-01-23 19:11] LABS: BASO % 0.2 %; BASO ABS # 0.02 K/uL (0-0.2); EOS % 0.3 %; EOS ABS # 0.03 K/uL (0-0.5); HEMATOCRIT 38.6 % (37-47); HEMOGLOBIN 13.7 g/dL (12.0-16.0); IG# 0.02 K/uL (0.00-0.02); LYMPH % 19.3 %; LYMPH ABS # 1.82 K/uL (1.2-3.4); MEAN CELL VOLUME 90.4 fL (80-100); MEAN CORPUSCULAR HEMOGLOBIN 32.1 pg (25-34); MEAN CORPUSCULAR HGB CONC 35.5 g/dl (32-36); MEAN PLATELET VOLUME 10.1 fL (7.4-10.4); MONO % 9.9 %; MONO ABS # 0.93 K/uL (0.11-0.59); NEUT % 70.1 %; PLATELET COUNT 301 K/uL (130-400); RED CELL DISTRIBUTION WIDTH CV 12.1 % (11.5-14.5); RED CELL DISTRIBUTION WIDTH SD 39.5 fL (36.4-46.3); WHITE BLOOD COUNT 9.42 K/uL (4.8-10.8)
[2018-01-23] MEDS ORDERED: IV FLUIDS COMPLETED PRN (19:15)
[2018-01-23 19:18] LABS: CREATININE 0.67 mg/dl (0.60-1.20); PHOSPHORUS 3.5 mg/dl (2.5-4.9); POTASSIUM 3.9 mmol/L (3.5-5.1)
[2018-01-23 19:24] LABS: PTT PATIENT 27.5 SECONDS (21.0-31.0)
[2018-01-23 20:00] VITALS: BP 123/83; PULSE 77; TEMP 36.4; Ht 160 cm; Wt 59.5 kg
[2018-01-23] MEDS: TAMSULOSIN HCL 0.4 MG CAP PO SCH (21:22)
[2018-01-23] MEDS: GUAIFENESIN/CODEINE 200MG/20MG 10ML UDC PO PRN (22:42)
[2018-01-23] MEDS: KETOROLAC TROMETHAMINE 30 MG/ML VIAL IV PRN (22:49)
[2018-01-23 23:25] VITALS: BP 139/96; PULSE 107; TEMP 36.8; O2SAT 97
[2018-01-23 23:40] VITALS: PULSE 89
[2018-01-23] MEDS: DEXAMETHASONE INJ 4 MG in SYRINGE 0 ML IV SCH (23:44)
[2018-01-24] MEDS: HYDROmorphone INJ 1 MG/ML SYR IV PRN ×5 (03:24→22:33)
[2018-01-24] MEDS: DEXAMETHASONE INJ 4 MG in SYRINGE 0 ML IV SCH ×3 (05:54→18:22)
[2018-01-24] MEDS ORDERED: ARMOUR THYROID 30 MG TAB PO SCH (06:00)
[2018-01-24] MEDS ORDERED: NURSING DECISION MEDICATION ORDER SCH (06:15)
[2018-01-24] MEDS: GUAIFENESIN/CODEINE 200MG/20MG 10ML UDC PO PRN ×2 (06:27→18:21)
[2018-01-24 06:28] LABS: BASO % 0.1 %; BASO ABS # 0.01 K/uL (0-0.2); EOS % 0.1 %; EOS ABS # 0.01 K/uL (0-0.5); HEMATOCRIT 39.9 % (37-47); HEMOGLOBIN 14.1 g/dL (12.0-16.0); IG# 0.04 K/uL (0.00-0.02); LYMPH % 12.7 %; LYMPH ABS # 1.85 K/uL (1.2-3.4); MEAN CELL VOLUME 90.9 fL (80-100); MEAN CORPUSCULAR HEMOGLOBIN 32.1 pg (25-34); MEAN CORPUSCULAR HGB CONC 35.3 g/dl (32-36); MEAN PLATELET VOLUME 9.8 fL (7.4-10.4); MONO % 4.3 %; MONO ABS # 0.63 K/uL (0.11-0.59); NEUT % 82.5 %; NEUT ABS # 12.03 K/uL (1.4-6.5); PLATELET COUNT 282 K/uL (130-400); RED CELL DISTRIBUTION WIDTH CV 12.1 % (11.5-14.5); RED CELL DISTRIBUTION WIDTH SD 40.1 fL (36.4-46.3); WHITE BLOOD COUNT 14.57 K/uL (4.8-10.8)
[2018-01-24 07:02] LABS: CALCIUM 8.5 mg/dl (8.5-10.1); CREATININE 0.7 mg/dl (0.60-1.20); POTASSIUM 4.3 mmol/L (3.5-5.1)
[2018-01-24 07:43] VITALS: BP 105/64; PULSE 77; TEMP 36.6; O2SAT 96
[2018-01-24 08:07] VITALS: O2SAT 96
[2018-01-24] MEDS: ENOXAPARIN 40 MG/0.4 ML SYR SQ SCH (10:10)
[2018-01-24] MEDS: CYCLOBENZAPRINE HCL 5 MG TAB PO SCH (10:10)
[2018-01-24] MEDS: KETOROLAC TROMETHAMINE 30 MG/ML VIAL IV PRN ×3 (10:16→22:32)
[2018-01-24] MEDS: ARMOUR THYROID 30 MG TAB PO SCH (10:19)
--- NOTE | 2018-01-24 12:13 | Hospitalist Progress Note ---
Hospitalist Progress Note Date of Service Jan 24, 2018. (Alisha Huitron ., [place]) Subjective Pt evaluation today including: conversation w/ patient, physical exam, chart review, lab review, review of studies, review of inpatient medication list Voiding: no voiding problems Ms. Gandara is crying and very painful as we talk. She is worried about how much longer this pain will last. She is especially painful with any movement. She denies any loss of bowel or bladder or numbness. Her back pain radiates to her right thigh. I spent time discussing her plan of care and what she could expect from her course. ROS Constitutional: no chills, aches, sweats or fever Respiratory: no sob,cough, sputum, or wheezing Cardiac: no chest pain, palpitations, edema, orthopnea or lightheadedness GI: no abdominal pain, nausea, vomiting, diarrhea or constipation : no dysuria or hesitancy Extremities: see HPI Skin: no rash All other systems reviewed and negative (Alisha Huitron .[place]) Medications Medications Administered Medications (Trade) Dose Ordered Sig/Antonia Route Start Time Stop Time Status Last Admin Dose Admin Methylprednisolone Sodium Succinate (Solu-Medrol IV) 125 mg NOW STAT IV 01/23/18 11:47 01/23/18 11:49 DC 01/23/18 12:10 125 MG Ketorolac Tromethamine (Toradol Inj) 30 mg NOW STAT IV 01/23/18 11:47 01/23/18 11:49 DC 01/23/18 12:11 30 MG Acetaminophen (Tylenol Tab) 650 mg NOW STAT PO 01/23/18 11:47 01/23/18 11:49 DC 01/23/18 12:10 650 MG Morphine Sulfate (MoRPHine SULFATE INJ) 4 mg NOW STAT IV 01/23/18 11:47 01/23/18 11:49 DC 01/23/18 12:11 4 MG Fentanyl Citrate (Fentanyl Inj) 75 mcg NOW ONCE IV 01/23/18 13:30 01/23/18 13:31 DC 01/23/18 13:22 75 MCG Diazepam (Valium Inj) 5 mg STK-MED ONCE .ROUTE 01/23/18 14:21 01/23/18 14:22 DC 01/23/18 14:25 5 MG Hydromorphone HCl (Dilaudid Inj) 1 mg NOW STAT IV 01/23/18 17:02 01/23/18 17:04 DC 01/23/18 18:07 1 MG Sodium Chloride 1,000 ml @ 100 mls/hr Q10H STAT IV 01/23/18 17:02 01/23/18 20:11 DC 01/23/18 18:05 100 MLS/HR Ketorolac Tromethamine (Toradol Inj) 30 mg Q6H PRN IV 01/23/18 18:30 01/28/18 18:29 01/24/18 10:16 30 MG Cyclobenzaprine HCl (Flexeril Tab) 5 mg QAM PO 01/24/18 09:00 02/23/18 08:59 01/24/18 10:10 5 MG Codeine Phosphate/ Guaifenesin (Robitussin-AC Sugar Free Syrup) 10 ml Q6H PRN PO 01/23/18 18:45 02/22/18 18:44 01/24/18 06:27 10 ML Lorazepam (Ativan Tab) 0.5 mg BID PRN PO 01/23/18 18:45 02/22/18 18:44 01/24/18 06:27 0.5 MG Tamsulosin HCl (Flomax Cap) 0.4 mg HS PO 01/23/18 21:00 02/22/18 20:59 01/23/18 21:22 0.4 MG Enoxaparin Sodium (Lovenox Inj) 40 mg QAM SQ 01/24/18 09:00 02/23/18 08:59 01/24/18 10:10 40 MG Dexamethasone Sodium Phosphate 4 mg/Syringe 1 ml @ 1 mls/min Q6 IV 01/24/18 00:00 02/23/18 00:00 01/24/18 05:54 1 MLS/MIN Hydromorphone HCl (Dilaudid Inj) 1 mg Q4 PRN IV 01/23/18 22:45 02/06/18 18:29 01/24/18 10:10 1 MG Thyroid ([place] Thyroid Tab) 60 mg Q2D@1100 PO 01/24/18 11:00 02/23/18 10:59 01/24/18 10:19 30 MG (Alisha Huitron, VAL[place]INO) Objective Vital Signs Date Time Temp Pulse Resp B/P (MAP) Pulse Ox O2 Delivery O2 Flow Rate FiO2 01/24/18 10:32 Room Air 01/24/18 08:07 96 Room Air 01/24/18 07:43 36.6 77 105/64 (78) 96 Room Air 01/23/18 23:40 89 01/23/18 23:40 Room Air 01/23/18 23:25 36.8 107 18 139/96 (110) 97 Room Air 01/23/18 20:00 36.4 77 16 123/83 Room Air 01/23/18 19:43 93 20 119/82 96 Room Air 01/23/18 18:00 93 18 117/92 96 Room Air 01/23/18 17:31 93 20 125/82 96 Room Air 01/23/18 16:15 94 18 110/75 100 Room Air 01/23/18 14:35 94 20 122/71 97 Room Air 01/23/18 13:40 80 20 115/72 95 Room Air 01/23/18 12:51 79 20 118/82 96 Room Air (Alisha Huitron CRNP) Physical Exam Notes: General: distressed due to pain Eyes: normal inspection, PERLL Respiratory: chest non tender, clear to auscultation, normal breath sounds, no respiratory distress, no accessory muscle use Cardiac: regular rate and rhythm, no rub or gallop, no murmur, no edema, no jvd GI/: active bowel sounds, no abd pain or tenderness, soft, non distended Extremities: normal range of motion, normal strength, non tender Neuro/Psych: alert and oriented x 3, Skin: normal color, dry (Alisha Huitron CRNP) Laboratory Results Last 24 Hours Test 01/23/18 16:09 01/24/18 05:45 01/24/18 06:03 White Blood Count 9.42 K/uL 14.57 K/uL Red Blood Count 4.27 M/uL 4.39 M/uL Hemoglobin 13.7 g/dL 14.1 g/dL Hematocrit 38.6 % 39.9 % Mean Corpuscular Volume 90.4 fL 90.9 fL Mean Corpuscular Hemoglobin 32.1 pg 32.1 pg Mean Corpuscular Hemoglobin Concent 35.5 g/dl 35.3 g/dl Platelet Count 301 K/uL 282 K/uL Mean Platelet Volume 10.1 fL 9.8 fL Neutrophils (%) (Auto) 70.1 % 82.5 % Lymphocytes (%) (Auto) 19.3 % 12.7 % Monocytes (%) (Auto) 9.9 % 4.3 % Eosinophils (%) (Auto) 0.3 % 0.1 % Basophils (%) (Auto) 0.2 % 0.1 % Neutrophils # (Auto) 6.60 K/uL 12.03 K/uL Lymphocytes # (Auto) 1.82 K/uL 1.85 K/uL Monocytes # (Auto) 0.93 K/uL 0.63 K/uL Eosinophils # (Auto) 0.03 K/uL 0.01 K/uL Basophils # (Auto) 0.02 K/uL 0.01 K/uL RDW Standard Deviation 39.5 fL 40.1 fL RDW Coefficient of Variation 12.1 % 12.1 % Immature Granulocyte % (Auto) 0.2 % 0.3 % Immature Granulocyte # (Auto) 0.02 K/uL 0.04 K/uL Prothrombin Time 10.6 SECONDS Prothromb Time International Ratio 1.0 Activated Partial Thromboplast Time 27.5 SECONDS Partial Thromboplastin Ratio 1.1 Sodium Level 138 mmol/L 135 mmol/L Potassium Level 3.9 mmol/L 4.3 mmol/L Chloride Level 106 mmol/L 104 mmol/L Carbon Dioxide Level 25 mmol/L 24 mmol/L Anion Gap 8.0 mmol/L 7.0 mmol/L Blood Urea Nitrogen 5 mg/dl 9 mg/dl Creatinine 0.67 mg/dl 0.70 mg/dl Est Creatinine Clear Calc Drug Dose 87.7 ml/min 83.9 ml/min Estimated GFR () 123.0 121.3 Estimated GFR (Non- 106.2 104.6 BUN/Creatinine Ratio 7.5 12.3 Random Glucose 99 mg/dl 135 mg/dl Calcium Level 9.0 mg/dl 8.5 mg/dl Phosphorus Level 3.5 mg/dl Magnesium Level 2.2 mg/dl Urine Color YELLOW Urine Appearance CLEAR Urine pH 6.5 Urine Specific [place] 1.020 Urine Protein NEG Urine Glucose (UA) NEG Urine Ketones TRACE Urine Occult Blood NEG Urine Nitrite NEG Urine Bilirubin NEG Urine Urobilinogen NEG Urine Leukocyte Esterase SMALL Urine WBC (Auto) 5-10 /hpf Urine RBC (Auto) 0-4 /hpf Urine Hyaline Casts (Auto) 1-5 /lpf Urine Epithelial Cells (Auto) >30 /lpf Urine Bacteria (Auto) NEG (Alisha Huitron CRNP) Assessment and Plan 47yo female with history of voiding dysfunction, hypothyroidism presenting with acute onset back pain with sciatica after coughing fit. Patient found to have L5 endplate fraction with retropulsion resulting in canal narrowing at L4-L5 and L5 nerve root compression. Patient in significant pain, minimal relief only from multiple agents administered in ER. L5 endplate fracture/retropulsion/canal stenosis/L5 nerve root compression - patient with left lateral leg numbness. -Consultation with Orthopedic Surgery- Dr. Albarado -Pain control - will change prn toradol to scheduled Celebrex, start q8h tylenol , lidoderm patches, continue Decadron, Dilaudid and Flexeril - Plan is for surgery tomorrow. Patient does not have any cardiac history. Before her fracture she exercised at the gym three times a week and did yoga regularly. RCRI is 0.4% Urinary dysfunction - patient with history of the same -Continue Flomax 0.4mg po daily -Monitor I/O with bladder scan and straight cath if not able to void Hypothyroidism - stable, chronic -Continue [place] thyroid Cough - improved. -Continue guaifenasin with codeine Ppx - Lovenox 40mg daily Code - Full per discussion with patient Prolonged visit - 60 minutes spent in direct patient care (Alisha Huitron CRNP) [employer] Physician Supervision Note: I discussed with Alisha Huitron NP and agree with findings and plan as documented in the note. Any exceptions or clarifications are listed here: None Patient with consideration of neurosurgery stabilizing her fracture and possible removing bone fragment Documented By: Vinh Berman (Vinh Berman M.D.)
[2018-01-24] MEDS: ACETAMINOPHEN 500 MG TAB PO SCH ×2 (13:50→21:01)
--- NOTE | 2018-01-24 15:14 | Anesthesiology Progress Note ---
Anesthesia Progress Note Date of Service Jan 24, 2018. Progress Notes Ms. Gandara is slated for back surgery tomorrow with Dr. Albarado. Allergies to PCN (hives). Had a uterine ablation without anesthetic difficulty. PMH sig for voiding difficulty, hypothyroidism. Never smoker. Airway exam notable for MP 3 and thick neck. Advised to be NPO after midnight. Appears optimized for surgery tomorrow. Consent obtained. Questions answered.
[2018-01-24 15:25] VITALS: BP 131/82; PULSE 89; TEMP 36.5; O2SAT 96
--- NOTE | 2018-01-24 15:38 | Orthopedic Consultation ---
Orthopedic Consultation Date of Consultation: Jan 24, 2018. Attending Physician: Samira Jordan D.O. Reason for Consultation: Back and leg pain History of Present Illness This is a very pleasant 47-year-old female that presents with marked decline in status over the past week. She was struggling with bronchitis had been undergoing violent coughs for well over a week on Monday began experiencing significant back and left leg pain. The pain progressed the point that she was unable to ambulate. She presents the emergency room yesterday afternoon and was admitted for pain control evaluation. MRI lumbar spine does demonstrate evidence of superior endplate fracture of L5 with posterior migration with direct compression of the traversing L5 nerve root on the left. This is consistent with her pain pattern of left buttock pain extending down to the foot and weakness in the left great toe. Past Medical/Surgical History Medical Problems: (1) Back pain with sciatica Status: Acute (2) Compression fracture of L4 lumbar vertebra Status: Acute (3) Dysfunctional voiding of urine Status: Acute (4) Dysuria Status: Acute (5) Dysuria Status: Acute (6) Hypokalemia Status: Acute (7) Hyponatremia Status: Acute (8) Hyponatremia Status: Acute (9) Hyponatremia Status: Acute (10) Urinary tract infection Status: Acute (11) Urinary tract infection Status: Acute Family History FHx: cancer Gallbladder disease Heart disease Hypertension Social History Smoking Status: Never Smoker Smokeless Tobacco Use: No Alcohol Use: socially Drug Use: none Marital Status: Housing Status: lives with family Occupation Status: employed Allergies Coded Allergies: Penicillins (Verified Allergy, Unknown, HIVES, 01/23/18) Home Medications Scheduled Tamsulosin Hcl (Flomax), 0.4 MG PO HS Thyroid ([place] Thyroid), 60 MG PO Q2D Thyroid ([place] Thyroid), 30 MG PO Q2D Scheduled PRN Guaifenesin-Codeine (Guaiatussin Ac), 10 ML PO Q6H PRN for Cough Lorazepam (Lorazepam), 1 TAB PO BID PRN for Anxiety Current Inpatient Medications Current Inpatient Medications Medications (Trade) Dose Ordered Sig/Antonia Route Start Time Stop Time Status Last Admin Dose Admin Ondansetron HCl (Zofran Inj) 4 mg Q6H PRN IV 01/23/18 18:30 02/22/18 18:29 Ketorolac Tromethamine (Toradol Inj) 30 mg Q6H PRN IV 01/23/18 18:30 01/23/19 23:00 01/24/18 10:16 30 MG Cyclobenzaprine HCl (Flexeril Tab) 5 mg QAM PO 01/24/18 09:00 02/23/18 08:59 01/24/18 10:10 5 MG Codeine Phosphate/ Guaifenesin (Robitussin-AC Sugar Free Syrup) 10 ml Q6H PRN PO 01/23/18 18:45 02/22/18 18:44 01/24/18 06:27 10 ML Lorazepam (Ativan Tab) 0.5 mg BID PRN PO 01/23/18 18:45 02/22/18 18:44 01/24/18 06:27 0.5 MG Tamsulosin HCl (Flomax Cap) 0.4 mg HS PO 01/23/18 21:00 02/22/18 20:59 01/23/18 21:22 0.4 MG Enoxaparin Sodium (Lovenox Inj) 40 mg QAM SQ 01/24/18 09:00 02/23/18 08:59 01/24/18 10:10 40 MG Miscellaneous (Iv Fluids Completed) 1 ea PRN PRN N/A 01/23/18 19:15 01/23/19 19:14 Dexamethasone Sodium Phosphate 4 mg/Syringe 1 ml @ 1 mls/min Q6 IV 01/24/18 00:00 02/23/18 00:00 01/24/18 12:03 1 MLS/MIN Hydromorphone HCl (Dilaudid Inj) 1 mg Q4 PRN IV 01/23/18 22:45 02/06/18 18:29 01/24/18 13:52 1 MG Thyroid ([place] Thyroid Tab) 60 mg Q2D@1100 PO 01/24/18 11:00 02/23/18 10:59 01/24/18 10:19 30 MG Thyroid ([place] Thyroid Tab) 30 mg Q2D@1100 PO 01/25/18 11:00 02/24/18 10:59 Acetaminophen (Tylenol Tab) 1,000 mg Q8 PO 01/24/18 14:00 02/23/18 13:59 01/24/18 13:50 1,000 MG Celecoxib (CeleBREX CAP) 200 mg QAM PO 01/25/18 09:00 02/24/18 08:59 Lidocaine (Lidoderm Patch 5%) 1 patch QAM TD 01/25/18 09:00 02/24/18 08:59 Miscellaneous (Remove Lidoderm Patch) 1 ea DAILY@21 N/A 01/25/18 21:00 02/24/18 20:59 Physical Exam Date Time Temp Pulse Resp B/P (MAP) Pulse Ox O2 Delivery O2 Flow Rate FiO2 01/24/18 15:25 36.5 89 17 131/82 (98) 96 Room Air 01/24/18 10:32 Room Air 01/24/18 08:07 96 Room Air 01/24/18 07:43 36.6 77 105/64 (78) 96 Room Air 01/23/18 23:40 89 01/23/18 23:40 Room Air 01/23/18 23:25 36.8 107 18 139/96 (110) 97 Room Air 01/23/18 20:00 36.4 77 16 123/83 Room Air 01/23/18 19:43 93 20 119/82 96 Room Air 01/23/18 18:00 93 18 117/92 96 Room Air 01/23/18 17:31 93 20 125/82 96 Room Air 01/23/18 16:15 94 18 110/75 100 Room Air On physical exam patient is obvious distress. His difficulty with sitting up. She has tension signs with straight leg raising on the left. She exhibits marked deficits with extensor hallucis longus on the left compared to 5/5 on the right. Plantar flexion dorsiflexion appears to be symmetric 5/5 bilaterally. Sensory somewhat diminished on the left compared to the right foot. Laboratory Results Last 24 Hours Test 01/23/18 16:09 01/24/18 05:45 01/24/18 06:03 White Blood Count 9.42 K/uL 14.57 K/uL Red Blood Count 4.27 M/uL 4.39 M/uL Hemoglobin 13.7 g/dL 14.1 g/dL Hematocrit 38.6 % 39.9 % Mean Corpuscular Volume 90.4 fL 90.9 fL Mean Corpuscular Hemoglobin 32.1 pg 32.1 pg Mean Corpuscular Hemoglobin Concent 35.5 g/dl 35.3 g/dl Platelet Count 301 K/uL 282 K/uL Mean Platelet Volume 10.1 fL 9.8 fL Neutrophils (%) (Auto) 70.1 % 82.5 % Lymphocytes (%) (Auto) 19.3 % 12.7 % Monocytes (%) (Auto) 9.9 % 4.3 % Eosinophils (%) (Auto) 0.3 % 0.1 % Basophils (%) (Auto) 0.2 % 0.1 % Neutrophils # (Auto) 6.60 K/uL 12.03 K/uL Lymphocytes # (Auto) 1.82 K/uL 1.85 K/uL Monocytes # (Auto) 0.93 K/uL 0.63 K/uL Eosinophils # (Auto) 0.03 K/uL 0.01 K/uL Basophils # (Auto) 0.02 K/uL 0.01 K/uL RDW Standard Deviation 39.5 fL 40.1 fL RDW Coefficient of Variation 12.1 % 12.1 % Immature Granulocyte % (Auto) 0.2 % 0.3 % Immature Granulocyte # (Auto) 0.02 K/uL 0.04 K/uL Prothrombin Time 10.6 SECONDS Prothromb Time International Ratio 1.0 Activated Partial Thromboplast Time 27.5 SECONDS Partial Thromboplastin Ratio 1.1 Sodium Level 138 mmol/L 135 mmol/L Potassium Level 3.9 mmol/L 4.3 mmol/L Chloride Level 106 mmol/L 104 mmol/L Carbon Dioxide Level 25 mmol/L 24 mmol/L Anion Gap 8.0 mmol/L 7.0 mmol/L Blood Urea Nitrogen 5 mg/dl 9 mg/dl Creatinine 0.67 mg/dl 0.70 mg/dl Est Creatinine Clear Calc Drug Dose 87.7 ml/min 83.9 ml/min Estimated GFR () 123.0 121.3 Estimated GFR (Non- 106.2 104.6 BUN/Creatinine Ratio 7.5 12.3 Random Glucose 99 mg/dl 135 mg/dl Calcium Level 9.0 mg/dl 8.5 mg/dl Phosphorus Level 3.5 mg/dl Magnesium Level 2.2 mg/dl Urine Color YELLOW Urine Appearance CLEAR Urine pH 6.5 Urine Specific [place] 1.020 Urine Protein NEG Urine Glucose (UA) NEG Urine Ketones TRACE Urine Occult Blood NEG Urine Nitrite NEG Urine Bilirubin NEG Urine Urobilinogen NEG Urine Leukocyte Esterase SMALL Urine WBC (Auto) 5-10 /hpf Urine RBC (Auto) 0-4 /hpf Urine Hyaline Casts (Auto) 1-5 /lpf Urine Epithelial Cells (Auto) >30 /lpf Urine Bacteria (Auto) NEG Assessment & Plan Assessment L5 radiculopathy secondary to herniated fragment of bone and severe spinal stenosis. This point I had a discussion with the patient and her reviewing her imaging findings and clinical course. She would be a candidate for a lumbar laminotomy at the L4-5 level on the left to adequately decompress the nerve and hopefully improve her pain. Risks benefits pros cons and alternatives were outlined in detail. This time patient would like proceed with surgery will she will be made n.p.o. after midnight we will try for surgery first thing in the a.m.
[2018-01-24 16:40] VITALS: O2SAT 96
[2018-01-24] MEDS: TAMSULOSIN HCL 0.4 MG CAP PO SCH (21:00)
[2018-01-24] MEDS ORDERED: COUGH DROP (SUGAR FREE) LOZ 24 LOZ/1 BOX LOZ PRN (21:15)
[2018-01-25] VITALS (10 sets, daily range): BP systolic 107–145; BP diastolic 68–92; PULSE 71–101; TEMP 36.5–36.9; O2SAT 95–97
[2018-01-25] MEDS: DEXAMETHASONE INJ 4 MG in SYRINGE 0 ML IV SCH ×5 (01:00→23:53)
[2018-01-25] MEDS: HYDROmorphone INJ 1 MG/ML SYR IV PRN (03:27)
[2018-01-25] MEDS: KETOROLAC TROMETHAMINE 30 MG/ML VIAL IV PRN (05:50)
[2018-01-25] MEDS ORDERED: ARMOUR THYROID 30 MG TAB PO SCH ×2 (06:00→11:00)
[2018-01-25] MEDS: ACETAMINOPHEN 500 MG TAB PO SCH ×3 (06:33→20:40)
[2018-01-25] MEDS ORDERED: FENTANYL CITRATE INJ 50 MCG/1 ML 2 ML VIAL ONE ×2 (06:36→08:15)
[2018-01-25] MEDS ORDERED: MIDAZOLAM HCL 1 MG/ML 2ML VIAL ONE (06:36)
[2018-01-25] MEDS ORDERED: BUPIVACAINE 0.25% 30 ML VIAL ONE (07:08)
[2018-01-25] MEDS ORDERED: BUPIVACAINE LIPOSOME 1/3% 266 MG/20 ML VIAL ONE (07:09)
[2018-01-25] MEDS ORDERED: SODIUM CHLORIDE 0.9% PF 50 ML VIAL ONE (07:09)
[2018-01-25] MEDS ORDERED: BACITRACIN 50000 UNIT VIAL ONE (07:09)
[2018-01-25] MEDS ORDERED: EpINEphrine INJ 1MG/ML AMP 1 MG/ML AMP ONE (07:10)
--- NOTE | 2018-01-25 07:19 | History & Physical Bridge Note ---
H&P Re-Evaluation Bridge Note: I have examined the patient, reviewed the History & Physical and in the interval since the performance of the History & Physical I have noted the following changes of clinical significance: No changes noted Please note this is a surgical urgency secondary to significant neurologic decline over the past several days with marked weakness along the L5 nerve root on the left.
[2018-01-25] MEDS ORDERED: BUPIVACAINE/EPINEPHRINE 0.5% MPF 1:200,000 30 ML VIAL ONE (07:23)
[2018-01-25] MEDS ORDERED: CLINDAMYCIN 600 MG/54 ML D5W IV ONE (07:28)
[2018-01-25] MEDS ORDERED: ONDANSETRON INJ 2 MG/ML 2 ML VIAL ONE (08:18)
[2018-01-25] MEDS ORDERED: DEXAMETHASONE SOD INJ 4 MG/ML VIAL ONE (08:18)
[2018-01-25] MEDS ORDERED: ROCURONIUM BROMIDE 10 MG/ML 5 ML VIAL ONE (08:18)
[2018-01-25] MEDS ORDERED: PROPOFOL IV EMULSION 10 MG/ML 20 ML VIAL ONE (08:18)
[2018-01-25] MEDS ORDERED: LIDOCAINE HCL 2% 2 ML VIAL (20MG/ML) ONE (08:18)
[2018-01-25] MEDS ORDERED: HYDROmorphone INJ 2 MG/ML SYR/VIAL ONE (08:20)
[2018-01-25] MEDS ORDERED: GLYCOPYRROLATE INJ 0.2 MG/ML VIAL ONE (08:36)
[2018-01-25] MEDS ORDERED: NEOSTIGMINE METHYLSULFATE 1 MG/ML 10ML VIAL ONE (08:36)
[2018-01-25] MEDS ORDERED: DO NOT ADMINISTER FLU VACCINE PRN (08:45)
[2018-01-25] MEDS ORDERED: ONDANSETRON INJ 2 MG/ML 2 ML VIAL IV PRN ×2 (08:45→09:00)
[2018-01-25] MEDS ORDERED: LORAZEPAM 1 MG TAB PO PRN (08:45)
[2018-01-25] MEDS ORDERED: ACETAMINOPHEN 325 MG TAB PO PRN (08:45)
[2018-01-25] MEDS ORDERED: MAGNESIUM HYDROXIDE SUSP 30 ML UDC PO PRN (08:45)
[2018-01-25] MEDS ORDERED: HYDROmorphone INJ 2 MG/ML SYR/VIAL IV PRN ×2 (08:45→09:00)
[2018-01-25] MEDS ORDERED: DO NOT ADMINISTER PNEUMOCOCCAL VACCINE PRN (08:45)
[2018-01-25] MEDS ORDERED: KETOROLAC TROMETHAMINE 30 MG/ML VIAL IV. PRN (08:45)
[2018-01-25] MEDS ORDERED: ACETAMINOPHEN 500 MG TAB PO PRN (08:45)
[2018-01-25] MEDS ORDERED: LORAZEPAM INJ 1 MG in SYRINGE 0 ML IV PRN (08:45)
--- NOTE | 2018-01-25 08:45 | [facility] Operative Report ---
Operative Report Operative Date Jan 25, 2018. Pre-Operative Diagnosis L5 radiculopathy secondary to herniated fragment of bone and severe spinal stenosis Post-Operative Diagnosis L5 radiculopathy secondary to herniated fragment of bone and severe spinal stenosis Procedure(s) Performed Left L4-L5 Laminectomy Surgeon Dr. Albarado Sewing Demonstrator Surgeon(s) none Estimated Blood Loss 10cc Findings Herniated disc pulposus with fragment of bone migrating posteriorly in the lateral recess of L5 pedicle on the left. Anesthesia Type General Description of Procedure Patient was met with preoperatively case discussed all questions addressed. After informed consent obtained patient was taken to the operative suite underwent intubation placed in a prone position on the Aric table on top of the Fabien frame. All bony prominences well-padded eyes inspected to ensure no external pressure placed upon. This point the lumbar spine was prepped and draped in normal sterile fashion. The assistance of fluoroscopy identified that L4-5 disc space. A small midline incision was created overlying this region. Sharp dissection with the assistance of Bovie cautery was performed down to and exposing the interlaminar space at L4-5 and left. Self-retaining retractors placed. Then created a small laminotomy excising the medial portion of the facet and a portion of the superior ridge of the L5 lamina to expose markedly compress traversing L5 nerve root. This is mobilized medially and large fragments of bone fracture were noted in the lateral recess as well as some discal material. This was removed in its entirety creating significant decompression. Other bone fragments were tamped into position. The incision was then copiously irrigated approximately 20 cc of Exparel injected in the musculature and closed with 1 Vicryl fascia 2-0 Vicryl subcutaneously and 4 Monocryl for fashion closure Steri-Strips sterile dressings placed. Patient will continue to PACU stable condition. I attest to the content of the Intraoperative Record and any orders documented therein. Any exceptions are noted below.
[2018-01-25] MEDS ORDERED: FLOSEAL HEMOSTATIC MATRIX 5ML TOP ONE (08:46)
[2018-01-25] MEDS ORDERED: ATROPINE SULFATE 0.1 MG/ML 5ML SYR IV PRN (09:00)
[2018-01-25] MEDS ORDERED: CeleBREX 200 MG CAP PO SCH (09:00)
[2018-01-25] MEDS ORDERED: NALOXONE HCL 0.4 MG/1 ML VIAL/CARP IV PRN (09:00)
[2018-01-25] MEDS ORDERED: PHENYLEPHRINE 100MCG/ML 5ML SYR IV PRN (09:00)
[2018-01-25] MEDS ORDERED: FLUMAZENIL 0.1 MG/1 ML 10 ML VIAL IV PRN (09:00)
[2018-01-25] MEDS ORDERED: LABETALOL HCL IV 5 MG/ML 20ML IV PRN (09:00)
[2018-01-25] MEDS ORDERED: MEPERIDINE HCL 25 MG/ML CARP IV PRN (09:00)
[2018-01-25] MEDS ORDERED: EpHEDrine SULFATE INJ 50 MG/ML AMP IV PRN (09:00)
[2018-01-25] MEDS: FENTANYL CITRATE INJ 50 MCG/1 ML 2 ML VIAL IV PRN ×4 (09:05→09:20)
--- NOTE | 2018-01-25 09:19 | DIAGNOSTIC IMAGING REPORT ---
LUMBAR SPINE, INTRAOPERATIVE FLUOROSCOPY HISTORY: L4-5 laminectomy. FLUOROSCOPY TIME: 4 seconds. FINDINGS: Intraoperative fluoroscopy was provided for the lumbar spine. A single fluoroscopic spot image demonstrates skin retractors and a surgical instrument posterior to the L4-L5 level IMPRESSION: Fluoroscopy provided for a L4-5 laminectomy. Electronically signed by: Romaine Manzano M.D. 01/25/2018 9:17 AM Dictated Date/Time: 01/25/2018 9:17 AM
--- NOTE | 2018-01-25 09:41 | Anesthesiology Progress Note ---
Anesthesia Post Op Note Date & Time Jan 25, 2018 at 09:41 Vital Signs Pain Intensity: 0 Vital Signs Past 12 Hours Date Time Temp Pulse Resp B/P (MAP) Pulse Ox O2 Delivery O2 Flow Rate FiO2 01/25/18 09:35 91 16 114/63 96 Room Air 01/25/18 09:25 36.3 91 16 112/61 94 Room Air 01/25/18 09:15 106 16 141/75 94 Room Air 01/25/18 09:05 146 16 135/79 95 Oxymask 3 01/25/18 08:57 36.2 130 16 134/71 97 Oxymask 5 01/25/18 06:37 36.8 93 18 145/89 (107) 95 Room Air 01/25/18 01:00 Room Air 01/25/18 00:22 36.8 76 14 114/72 (86) 95 Room Air Notes Mental Status: alert / awake / arousable, participated in evaluation Pt Amnestic to Procedure: Yes Nausea / Vomiting: adequately controlled Pain: adequately controlled Airway Patency, RR, SpO2: stable & adequate BP & HR: stable & adequate Hydration State: stable & adequate Anesthetic Complications: no major complications apparent
[2018-01-25] MEDS: CYCLOBENZAPRINE HCL 5 MG TAB PO SCH (10:23)
[2018-01-25] MEDS: DOCUSATE SODIUM 100 MG CAP PO SCH ×2 (10:23→20:39)
[2018-01-25] MEDS: ENOXAPARIN 40 MG/0.4 ML SYR SQ SCH (10:24)
[2018-01-25] MEDS: LIDODERM (LIDOCAINE) PATCH 5% TD SCH (10:25)
[2018-01-25] MEDS: GUAIFENESIN/CODEINE 200MG/20MG 10ML UDC PO PRN ×2 (13:44→22:36)
[2018-01-25] MEDS: SODIUM CHLORIDE 0.9% 1000ML 1,000 ML IV SCH (13:44)
[2018-01-25] MEDS: CLINDAMYCIN IV 600 MG in DEXTROSE 5% 50ML 50 ML IV SCH ×2 (14:32→22:36)
--- NOTE | 2018-01-25 16:03 | Hospitalist Progress Note ---
Hospitalist Progress Note Date of Service Jan 25, 2018. (Alisha Huitron ., VALENTINO) Subjective Pt evaluation today including: conversation w/ patient, physical exam, chart review, lab review, review of inpatient medication list Voiding: no voiding problems Ms. Gandara is s/p laminectomy, sitting up in a chair eating lunch. She is feeling much better, pain is minimal, no numbness or tingling in lower extremities. Her cough continues to improve ROS Constitutional: no chills, aches, sweats or fever Respiratory: no sob,cough, sputum, or wheezing Cardiac: no chest pain, palpitations, edema, orthopnea or lightheadedness GI: no abdominal pain, nausea, vomiting, diarrhea or constipation : no dysuria or hesitancy Extremities: see HPI Skin: no rash All other systems reviewed and negative (Alisha Huitron CRNP) Medications Medications Administered Medications (Trade) Dose Ordered Sig/Antonia Route Start Time Stop Time Status Last Admin Dose Admin Methylprednisolone Sodium Succinate (Solu-Medrol IV) 125 mg NOW STAT IV 01/23/18 11:47 01/23/18 11:49 DC 01/23/18 12:10 125 MG Ketorolac Tromethamine (Toradol Inj) 30 mg NOW STAT IV 01/23/18 11:47 01/23/18 11:49 DC 01/23/18 12:11 30 MG Acetaminophen (Tylenol Tab) 650 mg NOW STAT PO 01/23/18 11:47 01/23/18 11:49 DC 01/23/18 12:10 650 MG Morphine Sulfate (MoRPHine SULFATE INJ) 4 mg NOW STAT IV 01/23/18 11:47 01/23/18 11:49 DC 01/23/18 12:11 4 MG Fentanyl Citrate (Fentanyl Inj) 75 mcg NOW ONCE IV 01/23/18 13:30 01/23/18 13:31 DC 01/23/18 13:22 75 MCG Diazepam (Valium Inj) 5 mg STK-MED ONCE .ROUTE 01/23/18 14:21 01/23/18 14:22 DC 01/23/18 14:25 5 MG Hydromorphone HCl (Dilaudid Inj) 1 mg NOW STAT IV 01/23/18 17:02 01/23/18 17:04 DC 01/23/18 18:07 1 MG Sodium Chloride 1,000 ml @ 100 mls/hr Q10H STAT IV 01/23/18 17:02 01/23/18 20:11 DC 01/23/18 18:05 100 MLS/HR Ketorolac Tromethamine (Toradol Inj) 30 mg Q6H PRN IV 01/23/18 18:30 01/25/18 08:56 DC 01/25/18 05:50 30 MG Cyclobenzaprine HCl (Flexeril Tab) 5 mg QAM PO 01/24/18 09:00 02/23/18 08:59 01/25/18 10:23 5 MG Codeine Phosphate/ Guaifenesin (Robitussin-AC Sugar Free Syrup) 10 ml Q6H PRN PO 01/23/18 18:45 02/22/18 18:44 01/25/18 13:44 10 ML Lorazepam (Ativan Tab) 0.5 mg BID PRN PO 01/23/18 18:45 02/22/18 18:44 01/24/18 06:27 0.5 MG Tamsulosin HCl (Flomax Cap) 0.4 mg HS PO 01/23/18 21:00 02/22/18 20:59 01/24/18 21:00 0.4 MG Enoxaparin Sodium (Lovenox Inj) 40 mg QAM SQ 01/24/18 09:00 02/23/18 08:59 01/25/18 10:24 40 MG Dexamethasone Sodium Phosphate 4 mg/Syringe 1 ml @ 1 mls/min Q6 IV 01/24/18 00:00 02/23/18 00:00 01/25/18 11:56 1 MLS/MIN Hydromorphone HCl (Dilaudid Inj) 1 mg Q4 PRN IV 01/23/18 22:45 02/06/18 18:29 01/25/18 03:27 1 MG Thyroid ([place] Thyroid Tab) 60 mg Q2D@1100 PO 01/24/18 11:00 02/23/18 10:59 01/24/18 10:19 30 MG Thyroid ([place] Thyroid Tab) 30 mg Q2D@1100 PO 01/25/18 11:00 02/24/18 10:59 01/25/18 11:15 30 MG Acetaminophen (Tylenol Tab) 1,000 mg Q8 PO 01/24/18 14:00 02/23/18 13:59 01/25/18 13:45 1,000 MG Lidocaine (Lidoderm Patch 5%) 1 patch QAM TD 01/25/18 09:00 02/24/18 08:59 01/25/18 10:25 1 PATCH Menthol (Nice Fatimah) 1 fatimah Q1H PRN FATIMAH 01/24/18 21:15 02/23/18 21:14 01/24/18 22:06 1 FATIMAH Bupivacaine HCl (Sensorcaine 0.25% Inj) 30 ml STK-MED ONCE .ROUTE 01/25/18 07:08 01/25/18 07:09 DC 01/25/18 08:35 30 ML Sodium Chloride (Sodium Chloride 0.9% Pf Inj) 50 ml STK-MED ONCE .ROUTE 01/25/18 07:09 01/25/18 07:10 DC 01/25/18 08:35 30 ML Bacitracin (Bacitracin Inj) 50,000 units STK-MED ONCE .ROUTE 01/25/18 07:09 01/25/18 07:10 DC 01/25/18 08:30 50,000 UNITS Bupivacaine Liposome (Exparel) 266 mg STK-MED ONCE .ROUTE 01/25/18 07:09 01/25/18 07:10 DC 01/25/18 08:35 266 MG Epinephrine HCl (EpINEphrine INJ 1MG/ML AMP/VIAL) 1 mg STK-MED ONCE .ROUTE 01/25/18 07:10 01/25/18 07:11 DC 01/25/18 08:35 0.15 MG Bupivacaine HCl/ Epinephrine Bitart (Sensorcaine/ Epinephrine 0.5% Mpf 1:200,000) 30 ml STK-MED ONCE .ROUTE 01/25/18 07:23 01/25/18 07:24 DC 01/25/18 07:58 15 ML Miscellaneous (Floseal Hemostatic Matrix 5ml) 5 ml ONE ONCE TOP 01/25/18 08:46 01/25/18 08:47 DC 01/25/18 08:30 5 ML Docusate Sodium (coLACE CAP) 100 mg BID PO 01/25/18 09:00 02/24/18 08:59 01/25/18 10:23 100 MG Clindamycin Phosphate 600 mg/ Dextrose 54 ml @ 100 mls/hr Q8H IV 01/25/18 15:00 01/26/18 07:33 01/25/18 14:32 100 MLS/HR Sodium Chloride 1,000 ml @ 80 mls/hr [id number] IV 01/25/18 08:45 01/26/18 08:44 01/25/18 13:44 80 MLS/HR Fentanyl Citrate (Fentanyl Inj) 25 mcg Q5M PRN IV 01/25/18 09:00 01/25/18 15:00 DC 01/25/18 09:20 25 MCG (Alisha Huitron CRNP) Objective Vital Signs Date Time Temp Pulse Resp B/P (MAP) Pulse Ox O2 Delivery O2 Flow Rate FiO2 01/25/18 15:23 36.5 101 18 120/74 (89) 95 01/25/18 12:46 36.8 93 16 132/83 (99) 97 01/25/18 11:45 74 14 107/68 (81) 95 Room Air 01/25/18 10:51 36.6 71 17 115/77 (90) 96 Room Air 01/25/18 10:15 36.6 74 16 125/80 (95) 97 Room Air 01/25/18 09:53 36.9 90 18 125/80 (95) 96 Room Air 01/25/18 09:45 Room Air 01/25/18 09:45 Room Air 01/25/18 09:35 91 16 114/63 96 Room Air 01/25/18 09:25 36.3 91 16 112/61 94 Room Air 01/25/18 09:15 106 16 141/75 94 Room Air 01/25/18 09:05 146 16 135/79 95 Oxymask 3 01/25/18 08:57 36.2 130 16 134/71 97 Oxymask 5 01/25/18 06:37 36.8 93 18 145/89 (107) 95 Room Air 01/25/18 01:00 Room Air 01/25/18 00:22 36.8 76 14 114/72 (86) 95 Room Air 01/24/18 16:40 96 Room Air (Alisha Huitron CRNP) Physical Exam Notes: General: no distress Eyes: normal inspection, PERLL Respiratory: chest non tender, clear to auscultation, normal breath sounds, no respiratory distress, no accessory muscle use Cardiac: regular rate and rhythm, no rub or gallop, no murmur, no edema, no jvd GI/: active bowel sounds, no abd pain or tenderness, soft, non distended Extremities: normal range of motion, normal strength, non tender Neuro/Psych: alert and oriented x 3, normal mood and affect Skin: normal color, dry, dressing on spine dry and intact with small amount of shadowing (Alisha Huitron CRNP) Laboratory Results Last 24 Hours Test 01/25/18 07:00 Bedside Urine Test NEG (Alisha Huitron CRNP) Assessment and Plan 47yo female with history of voiding dysfunction, hypothyroidism presenting with acute onset back pain with sciatica after coughing fit. Patient found to have L5 endplate fraction with retropulsion resulting in canal narrowing at L4-L5 and L5 nerve root compression. L5 endplate fracture/retropulsion/canal stenosis/L5 nerve root compression - s/ p L4-L5 laminectomy 01/25 -Consultation with Orthopedic Surgery- Dr. Albarado -Pain control - continue q8h tylenol, lidoderm patches, continue Decadron, Dilaudid, Toradol and Flexeril - PT/OT Urinary dysfunction - patient with history of the same -Continue Flomax 0.4mg po daily -Monitor I/O with bladder scan and straight cath if not able to void Hypothyroidism - stable, chronic -Continue [place] thyroid Cough - improved. -Continue guaifenasin with codeine Ppx - Lovenox 40mg daily Code - Full (Alisha Huitron CRNP) [employer]PER[employer] 3RD SHIFT Physician Supervision Note: I discussed with Alisha Huitron NP and agree with findings and plan as documented in the note. Any exceptions or clarifications are listed here: None Patient s/p neurosurgery with limited laminectomy, marked improvement of symptoms pain and now increased function Documented By: Vinh Berman (Vinh Berman M.D.)
[2018-01-25] MEDS: OXYCODONE HCL IR 5 MG TAB (IMMEDIATE RELEASE) PO PRN (18:30)
[2018-01-25] MEDS: TAMSULOSIN HCL 0.4 MG CAP PO SCH (20:39)
[2018-01-25] MEDS ORDERED: NURSING DECISION MEDICATION ORDER SCH (21:45)
[2018-01-26] MEDS: SODIUM CHLORIDE 0.9% 1000ML 1,000 ML IV SCH (02:53)
[2018-01-26 03:30] VITALS: BP 121/82; PULSE 76; TEMP 36.4; O2SAT 98
[2018-01-26] MEDS: OXYCODONE HCL IR 5 MG TAB (IMMEDIATE RELEASE) PO PRN ×3 (03:35→15:54)
[2018-01-26] MEDS: GUAIFENESIN/CODEINE 200MG/20MG 10ML UDC PO PRN (04:32)
[2018-01-26] MEDS: CLINDAMYCIN IV 600 MG in DEXTROSE 5% 50ML 50 ML IV SCH (06:33)
[2018-01-26] MEDS: ACETAMINOPHEN 500 MG TAB PO SCH ×2 (06:33→14:11)
[2018-01-26] MEDS: DEXAMETHASONE INJ 4 MG in SYRINGE 0 ML IV SCH ×2 (06:33→12:56)
[2018-01-26 07:54] VITALS: BP 120/76; PULSE 83; TEMP 36.6; O2SAT 96
[2018-01-26 08:18] VITALS: O2SAT 96
--- NOTE | 2018-01-26 08:34 | Anesthesiology Progress Note ---
Anesthesia Post Op Note Date & Time Jan 26, 2018 at 08:34 Vital Signs Vital Signs Past 12 Hours Date Time Temp Pulse Resp B/P (MAP) Pulse Ox O2 Delivery O2 Flow Rate FiO2 01/26/18 08:18 96 Room Air 01/26/18 07:54 36.6 83 16 120/76 (91) 96 Room Air 01/26/18 03:30 36.4 76 15 121/82 (95) 98 Room Air 01/26/18 00:00 Room Air 01/25/18 23:47 36.8 97 16 137/92 (107) 97 Room Air Notes Mental Status: alert / awake / arousable, participated in evaluation Pt Amnestic to Procedure: Yes Nausea / Vomiting: adequately controlled Pain: adequately controlled Airway Patency, RR, SpO2: stable & adequate BP & HR: stable & adequate Hydration State: stable & adequate Anesthetic Complications: no major complications apparent
[2018-01-26] MEDS: DOCUSATE SODIUM 100 MG CAP PO SCH (09:23)
[2018-01-26] MEDS: CYCLOBENZAPRINE HCL 5 MG TAB PO SCH (09:24)
[2018-01-26] MEDS: ENOXAPARIN 40 MG/0.4 ML SYR SQ SCH (09:24)
[2018-01-26] MEDS: LIDODERM (LIDOCAINE) PATCH 5% TD SCH (09:24)
[2018-01-26] MEDS ORDERED: RXC5 PO (10:19)
--- NOTE | 2018-01-26 10:20 | Discharge Instructions ---
Discharge Instructions Date of Service Jan 26, 2018. Admission Reason for Admission: Back Pain With Sciatica Discharge Discharge Diagnosis / Problem: lumbar disk herniation Discharge Goals Goal(s): Improve function Activity Recommendations Activity Limitations: per Instructions/Follow-up section Brace when OOB . Instructions / Follow-Up Instructions / Follow-Up ACTIVITY RECOMMENDATIONS: SELF CARE INSTRUCTIONS AFTER A LAMINECTOMY 1. No prolonged sitting (less than 30 minutes for the first 3 weeks after surgery). 2. No bending, lifting more than 5 pounds, or twisting (roll like a log when turning in bed). 3. You may shower 3 days after surgery if no drainage from wound. Thoroughly dry wound. Do not soak in the tub. 4. Please walk as much as you can for exercise. Gradually increase the distance that you walk as your endurance increases. 5. You may drive in 7-10 days if you are comfortable and no longer requiring pain medications. SPECIAL CARE INSTRUCTIONS: VERY IMPORTANT TO READ AND REVIEW A. Your surgical incision has been closed with a cosmetic suture under the skin that will dissolve in about 6 weeks. In 14 days, you can use a pair of clean scissors and cut the suture that is left outside of the skin at the ends of your incision. B. Complications are uncommon, but please contact us if you have any signs or symptoms of: 1. wound infection (fever higher than 102.5 degrees F, redness, separation of wound, drainage, or increasing pain from the incision) 2. blood clots in legs (pain, swelling, redness and warmth in legs) 3. urinary tract infection (fever higher than 102.5 degrees, burning upon urination or increased frequency of urination) 4. nerve problems (inability to walk on your toes or heels, numbness, loss of bowel or bladder control) 5. any other symptoms that concern you. C. Please call the office at if you have any concerns or questions about your operation or recovery. MANAGING PAIN AFTER SPINAL SURGERY 1. Narcotic medication is intended for short-term use and will be provided for surgical pain. Surgical pain usually lasts for a period of 4-6 weeks. Narcotic medication includes Percocet, Vicodin, Darvocet, Tylenol #3 or Lortab. 2. Longer-term pain is more appropriately treated with non-narcotic medication such as Tylenol ES. 3. Muscle spasm is not appropriately treated with narcotics. Muscle relaxers such as Soma, Flexeril or Skelaxin can be used along with Tylenol ES. 4. Remember that we all live with some "aches and pains". This is not unusual or uncommon after an injury or as we get older. 5. We will provide appropriate medication within the normal guidelines of their prescribed use. We will also be very cautious and aware of potential abuse and extended duration of patients' medication needs. 6. Please allow 2-3 days to process refills. Prescriptions will not be mailed but must be picked up at the office. FOLLOW UP VISIT: Keep your scheduled follow-up appointment. Any questions, please call the office at . Current Hospital Diet Patient's current hospital diet: Regular Diet Discharge Diet Recommended Diet: Regular Diet Procedures Procedures Performed: Left L4-L5 Laminectomy Pending Studies Studies pending at discharge: no Medical Emergencies . Who to Call and When: Medical Emergencies: If at any time you feel your situation is an emergency, please call 911 immediately. . Non-Emergent Contact Non-Emergency issues call your: Primary Care Provider . "Provider Documentation" section prepared by Tate Albarado. .
[2018-01-26] MEDS: ARMOUR THYROID 30 MG TAB PO SCH (11:03)
[2018-01-26] MEDS ORDERED: PRVHFAIN INH (12:40)
--- NOTE | 2018-01-26 12:46 | Discharge Summary ---
Discharge Summary Date of Service Jan 26, 2018. Discharge Summary Admission Date: Jan 23, 2018 at 18:39 Discharge Date: Jan 26, 2018 Discharge Disposition: Home Principal Diagnosis: L5 endplate fracture/retropulsion/canal stenosis/L5 nerve root compression Problems/Secondary Diagnoses: Urinary dysfunction, cough, Hypothyroidism Procedures: Operative Date Jan 25, 2018. Pre-Operative Diagnosis L5 radiculopathy secondary to herniated fragment of bone and severe spinal stenosis Post-Operative Diagnosis L5 radiculopathy secondary to herniated fragment of bone and severe spinal stenosis Procedure(s) Performed Left L4-L5 Laminectomy Surgeon Dr. Albarado Personnel Training Officer Surgeon(s) none Estimated Blood Loss 10cc Findings Herniated disc pulposus with fragment of bone migrating posteriorly in the lateral recess of L5 pedicle on the left. Anesthesia Type General Description of Procedure Patient was met with preoperatively case discussed all questions addressed. After informed consent obtained patient was taken to the operative suite underwent intubation placed in a prone position on the Aric table on top of the Fabien frame. All bony prominences well-padded eyes inspected to ensure no external pressure placed upon. This point the lumbar spine was prepped and draped in normal sterile fashion. The assistance of fluoroscopy identified that L4-5 disc space. A small midline incision was created overlying this region. Sharp dissection with the assistance of Bovie cautery was performed down to and exposing the interlaminar space at L4-5 and left. Self-retaining retractors placed. Then created a small laminotomy excising the medial portion of the facet and a portion of the superior ridge of the L5 lamina to expose markedly compress traversing L5 nerve root. This is mobilized medially and large fragments of bone fracture were noted in the lateral recess as well as some discal material. This was removed in its entirety creating significant decompression. Other bone fragments were tamped into position. The incision was then copiously irrigated approximately 20 cc of Exparel injected in the musculature and closed with 1 Vicryl fascia 2-0 Vicryl subcutaneously and 4 Monocryl for fashion closure Steri-Strips sterile dressings placed. Patient will continue to PACU stable condition. I attest to the content of the Intraoperative Record and any orders documented therein. Any exceptions are noted below. <Electronically signed by Tate Albarado D.O.> Signed: 01/25/18 [id number] Consultations: Dr. Albarado from orthopedic surgery Medication Reconciliation New Medications: Albuterol (Ventolin Hfa) 60 Puffs/5400 Mcg Aers 2 PUFF INH Q4H PRN for Cough for 30 Days, #1 INHALER Oxycodone HCl (Oxycodone HCl) 5 Mg Tab 5 MG PO Q4H PRN for moderate pain (pain scale 4-6) for 30 Days, #30 TAB Continued Medications: Guaifenesin-Codeine (Guaiatussin Ac) 1 Syp Syp 10 ML PO Q6H PRN for Cough Lorazepam (Lorazepam) 0.5 Mg Tab 1 TAB PO BID PRN for Anxiety, #7 TABS Tamsulosin Hcl (Flomax) 0.4 Mg Cap 0.4 MG PO HS Thyroid ([place] Thyroid) 30 Mg Tab 60 MG PO Q2D PT ALTERNATES BETWEEN 30 AND 60MG Thyroid ([place] Thyroid) 30 Mg Tab 30 MG PO Q2D PT ALTERNATES BETWEEN 30 AND 60MG DAILY Discharge Exam ROS Constitutional: no chills, aches, sweats or fever Respiratory: no sob,cough, sputum, or wheezing Cardiac: no chest pain, palpitations, edema, orthopnea or lightheadedness GI: no abdominal pain, nausea, vomiting, diarrhea or constipation : no dysuria or hesitancy Extremities: no joint pain or weakness Skin: no rash All other systems reviewed and negative General: no distress Eyes: normal inspection, PERLL Respiratory: chest non tender, clear to auscultation, normal breath sounds, no respiratory distress, no accessory muscle use Cardiac: regular rate and rhythm, no rub or gallop, no murmur, no edema, no jvd GI/: active bowel sounds, no abd pain or tenderness, soft, non distended Extremities: normal range of motion, normal strength, non tender Neuro/Psych: alert and oriented x 3, normal mood and affect Skin: normal color, dry, dressing with some shadowing Hospital Course Patient is a pleasant 47yo female with history of hypothyroidism, voiding dysfunction presenting with acute low back pain with radicular symptoms. Patient states that she began coughing on 01/11. She was seen by her PCP on and was given a steroid taper and cough tablets with no relief. Her cough worsened. On Monday she was coughing violently and heard a pop in her back - she then experienced sharp pain in her back with radiating pain down the posterior portion of her left leg. She e-mailed her physical therapist who later evaluated her and diagnosed her with a pinched nerve. She was instructed to stretch and take pain medications. Pain progressed - patient unable to sit, walk or move without severe discomfort. She was unable to ambulate or perform ADLs. Her had been caring for her. L5 endplate fracture/retropulsion/canal stenosis/L5 nerve root compression - s/ p L4-L5 laminectomy 01/25 -Consultation with Orthopedic Surgery- Dr. Albarado -Pain control - inpatient q8h tylenol, lidoderm patches, Decadron, Dilaudid, Toradol and Flexeril - oxycodone for home - PT/OT - patient ambulated halls without assistance Urinary dysfunction - patient with history of the same -Continue Flomax 0.4mg po daily Hypothyroidism - stable, chronic -Continue [place] thyroid Cough -Continue guaifenasin with codeine - will try albuterol inhaler as there may be a component of reactive airway. Patient feels that her cough is improving overall but is persistent. Her lungs sound clear, there was no acute disease on cxr, she never ran a fever or had an URI that would cause concern for something like pertussis. She does have allergies. BARBACK Physician Supervision Note: I discussed with Alisha Huitron NP and agree with findings and plan as documented in the note. Any exceptions or clarifications are listed here: None ok for discharge Documented By: Vinh Berman Total Time Spent: Greater than 30 minutes This includes examination of the patient, discharge planning, medication reconciliation, and communication with other providers. Discharge Instructions Please refer to the electronic Patient Visit Report (Discharge Instructions) for additional information. Follow-Up Dr. Albarado, pcp
[2018-01-26] MEDS ORDERED: ALBUTEROL HFA 8 GM INHALER INH PRN (13:30)
--- NOTE | 2018-01-26 13:30 | Progress Note ---
Progress Note Date of Service Jan 26, 2018. Progress Note Patient's back pain is controlled. Leg symptoms are markedly improved. Vital signs are stable. On exam she is sitting up at the bedside has excellent strength testing does appear comfortable. Assessment status post lumbar laminotomy. Plan at this time I long discussion with the patient and her regarding her postoperative care. We are going to have her wear her brace when up and ambulatory. She is okay for discharge today.
[2018-01-26 15:07] VITALS: BP 112/71; PULSE 93; TEMP 36.4; O2SAT 98
[2018-01-27] MEDS ORDERED: BISACODYL 5 MG TABEC PO PRN (06:00)
[2018-01-27] MEDS ORDERED: BISACODYL 10 MG SUPP PR PRN (06:00)
[2018-01-27] MEDS ORDERED: POLYETHYLENE (MIRALAX) 17 GM PACK PO SCH (09:00)
== END 2018-01-26 16:00 | disposition home or self-care (01) | DRG 519 ==
LOC: EDBD 11:25 → C.EDA 11:27 → C.MSW 18:39 → ENRESERV 19:15
PROVIDERS: ADMIT Internal Medicine; ATTEND Internal Medicine
PROC: 0SB20ZZ Excision of Lumbar Vertebral Disc, Open Approach (ICD-10-PCS; principal; 2018-01-25 07:45)
DX: M51.16 Intervertebral disc disorders with radiculopathy, lumbar region (principal); M48.56XA Collapsed vertebra, not elsewhere classified, lumbar region, initial encounter for fracture; M48.061 Spinal stenosis, lumbar region without neurogenic claudication; E03.9 Hypothyroidism, unspecified; Z88.0 Allergy status to penicillin; Z82.49 Family history of ischemic heart disease and other diseases of the circulatory system

== ENCOUNTER 2022-11-08 22:55 | Inpatient (IN) ==
[2022-11-08] MEDS ORDERED: SODIUM CHLORIDE 0.9% 1000ML 1,000 ML IV SCH (23:45)
[2022-11-08] MEDS ORDERED: ONDANSETRON INJ 2 MG/ML 2 ML VIAL IV STA (23:58)
[2022-11-09] MEDS ORDERED: ACETAMINOPHEN 1,000 MG/100 ML VIAL IV STA (00:03)
[2022-11-09 00:08] LABS: Basophils # (auto) 0.03 K/uL (0-0.2); Basophils % (auto) 0.2 %; Eosinophils % (auto) 0.6 %; Hematocrit (blood only) 38.6 % (37.0-47.0); Hemoglobin 13.7 g/dl (12.0-16.0); Immature Granulocytes # (auto) 0.04 K/uL (0.01-0.20); Immature Granulocytes % (auto) 0.3 %; Lymphocytes # (auto) 1.92 K/uL (1.2-3.4); Lymphocytes % (auto) 12.4 %; Mean Corpuscular Hemoglobin 31.9 pg (25.0-34.0); Mean Corpuscular Hgb Conc 35.5 g/dL (32.0-36.0); Mean Corpuscular Volume 89.8 fL (80.0-100.0); Mean Platelet Volume 9.6 fL (9.4-12.4); Monocytes # (auto) 0.85 K/uL (0.11-0.59); Monocytes % (auto) 5.5 %; Neutrophils # (auto) 12.59 K/uL (1.40-6.50); Platelet Count 298 K/uL (130-400); RDW Standard Deviation 39.5 fL (36.4-46.3); White Blood Count 15.53 K/ul (4.8-10.8)
[2022-11-09 00:26] LABS: Albumin Globulin Ratio 1.4 (0.9-2); BUN Creatinine Ratio 5.5 (10-20); Bilirubin,Total 0.4 mg/dl (0.2-1.0); Calcium 8.8 mg/dl (8.6-10.3); Creatinine Clr Calc Pharmacy 81.6 ml/min; Est GFR (African American) 111.3 ml/min; Globulin 2.8 gm/dl (2.5-4.0); Potassium 3.4 mmol/L (3.5-5.1); Total Protein 6.8 gm/dl (6.0-8.3)
[2022-11-09] MEDS ORDERED: OPTIRAY 320 100ml IV ONE (00:37)
--- NOTE | 2022-11-09 01:11 | CT Scan Report ---
Exam(s): CT ABDOMEN + PELVIS With Contrast IV Amt: 87 ml optiray 320 EXAM: CT Abdomen and Pelvis With Intravenous Contrast CLINICAL HISTORY: Reason for exam: abd pain, hx breast ca, recent port placement. TECHNIQUE: Axial computed tomography images of the abdomen and pelvis with intravenous contrast. CTDI is 12.78 mGy and DLP is 611.85 mGy-cm. Automated exposure control was utilized for the study. A dose lowering technique was utilized adhering to the principles of ALARA. CONTRAST: Patient received 87 ml optiray 320 of IV contrast COMPARISON: 05/11/2017 FINDINGS: Lung bases: Unremarkable. No mass. No consolidation. ABDOMEN: Liver: Unremarkable. No mass. Gallbladder and bile ducts: Unremarkable. No calcified stones. No ductal dilation. Pancreas: Unremarkable. No mass. No ductal dilation. Spleen: Unremarkable. No splenomegaly. Adrenals: Unremarkable. No mass. Kidneys and ureters: Left lower pole renal hypodensity likely representing a cyst. No hydronephrosis. Stomach and bowel: Marked distention of the colon and proximal small bowel with a transition between dilated and nondilated loops of small bowel within the left lower quadrant. No mucosal thickening. PELVIS: Appendix: No findings to suggest acute appendicitis. Bladder: Unremarkable. No mass. Reproductive: Unremarkable as visualized. ABDOMEN and PELVIS: Intraperitoneal space: Unremarkable. No free air. No significant fluid collection. Bones/joints: No acute fracture. No dislocation. Soft tissues: Unremarkable. Vasculature: Unremarkable. No abdominal aortic aneurysm. Lymph nodes: Unremarkable. No enlarged lymph nodes. IMPRESSION: High-grade small bowel obstruction with transition point in the left lower quadrant Electronically signed by: Sidney Stack MD 11/09/22 01:10 AM
[2022-11-09 01:33] LABS: Appearance Urine Turbid (Clear); Bacteria Urine Automated Negative (Negative); Bilirubin Urine Negative (Negative); Blood Urine 2+ (Negative); Color Urine Yellow; Epithelial Cell Urine Auto >30 /lpf (0-5); Glucose Urine UA Negative (Negative); Ketones Urine 1+ (Negative); Leukocyte Esterase Urine Trace (Negative); Nitrite Urine Negative (Negative); Protein Urine Negative (Negative); RBC Urine Automated >30 /hpf (0-4); Specific Gravity Urine 1.014 (1.000-1.030); Urobilinogen Urine Negative (Negative); pH Urine >= 9.0 (4.5-7.5)
--- NOTE | 2022-11-09 01:42 | History & Physical Report ---
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 Hypertension- Lopressor 5 mg IV every 4 hours as needed systolic blood pressure greater than 160 Invasive ductal carcinoma of left breast- Patient was to undergo chemotherapy beginning this , 11/10. Will need to wait until this episode is resolved Anxiety- Lorazepam 0.5 mg IV 3 times daily as needed History of Present Illness Chief Complaint: The patient presents to the emergency department with acute onset of severe abdominal pain around 5:00 this evening Primary Care Provider: Lisa Law MD The patient is a 52-year-old female with a past medical history including allergic rhinitis, external hemorrhoids, female stress incontinence, status post lumbar spine surgery for decompression, hypothyroidism, DCIS of left breast, anxiety, insomnia, chronic interstitial cystitis, and L5 vertebral fracture. The patient presents to the emergency department with a cute onset of severe generalized abdominal pain that began around 5:00 this evening. Work-up in the emergency department included CT scan of abdomen pelvis which showed a high- grade small bowel obstruction with transition point in the left lower quadrant. The patient was also assessed by general surgery while in the ED, and will follow along during stay Allergies Allergy/AdvReac Type Severity Reaction Status Date / Time Penicillins Allergy Unknown unk - as a Verified 11/07/22 06:38 child escitalopram [From Lexapro] AdvReac Intermediate Insomnia Verified 11/07/22 06:38 Home Medications Medication Instructions Recorded Confirmed Type hydrocortisone 2.5 % topical cream 1 applic NM DAILY PRN hemorrhoids 06/01/22 11/02/22 Rx with perineal applicator #30 grams (Proctozone-HC) thyroid (pork) 30 mg tablet 30 mg PO BID #60 tabs 06/01/22 11/07/22 Rx ([place] Thyroid) Lactobacillus acidophilus 1.5 mg 1.5 mg PO QAM 09/07/22 11/02/22 History (250 million cell) capsule (Probiotic Acidophilus) Standard Process Cataplex Acp 1 cap PO QPM 09/07/22 11/02/22 History Standard Process Chlorophyll 1 dose PO QAM 09/07/22 11/02/22 History lorazepam 0.5 mg tablet 0.5 mg PO TID PRN anxiety #90 tabs 10/19/22 11/07/22 Rx Standard Process Flaxseed 1 tab PO QPM 11/02/22 11/02/22 History Oil/Vitamin B6 Standard Process Multizyme 1 tab PO HS 11/02/22 11/02/22 History Standard Process Vitamin B12 1 tab PO QPM 11/02/22 11/02/22 History Standard Process Zinc 1 tab PO QPM 11/02/22 11/02/22 History betamethasone valerate 0.12 % 1 applic topical BID PRN Rash 11/02/22 11/02/22 History topical foam diphenhydramine HCl 50 mg capsule 50 mg PO HS 11/02/22 11/07/22 History tamsulosin 0.4 mg capsule 0.4 mg PO QPM 11/02/22 11/07/22 History oxycodone 5 mg tablet 5 - 10 mg PO Q6H PRN pain #20 tabs 11/07/22 Rx sulfamethoxazole 800 0.775 tab PO BID #6 tabs 11/07/22 Rx mg-trimethoprim 160 mg tablet (Bactrim DS) hydroxyzine HCl 10 mg tablet 10 mg PO HS PRN bladder pain #30 11/08/22 11/08/22 Rx tabs oxybutynin chloride 5 mg tablet 5 mg PO Q12H PRN bladder issues 11/08/22 11/08/22 Rx #30 tabs phenazopyridine 200 mg tablet 200 mg PO BID PRN bladder pain #10 11/08/22 11/08/22 Rx (Pyridium) tabs Past Med/Surg History Medical History Allergic rhinitis Anxiety Breast cancer, left er/pr +,genetic testing negative. 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 Mckenzie S/P lumpectomy, left breast (09/13/22) Left lumpectomy with sentinel lymph node biopsy. Dr. Mckenzie Status post hysteroscopic ablation of endometrium Status post lumbar spine surgery for decompression of spinal cord Family History Father Coronary heart disease Heart disease Uncle Lung cancer maternal Mother Leiomyoma Hypertension Grandmother Stroke Other No family history of adverse response to anesthesia Pure hypercholesterolemia Denies family history of Ovarian cancer Breast cancer Colorectal cancer Social History Smoking Status: Never smoker Second Hand Exposure: No; Do You Dip or Chew Tobacco: No; Hx Alcohol Use: Yes Alcohol Intake Frequency: 2-3 x/Week Hx Substance Use: No Preferred Language: Chinese Communication Ability: Effective Visual Impairment: No Limitations Hearing Ability: Normal Calliope Player Required: No Beliefs That Will Affect Care: None marital status: Current Living Situation: Spouse and Family current occupational status: employed How many Children do You have: 1 other: SON Feels Safe at Home: Yes Childhood Exposure to Second-Hand Smoke: Yes during the past year weight has: remained stable Dental Care, Regularly: Yes Physical Activity Frequency: Daily Seatbelt Use: always Sunscreen Use: Yes Assistive Devices: Glasses Review of Systems Review of Systems: The patient denies chest pain, palpitations, shortness of breath, dyspnea on exertion, cough, lower extremity swelling, sore throat, fevers, chills, sweats, blood in urine or stool, dysuria, urinary frequency or urgency, lightheadedness, dizziness, headache, memory loss, loss of consciousness, rash, abnormal bruising or bleeding, imbalance, focal or generalized weakness, numbness or tingling in arms or legs, generalized arthralgias or myalgias, back or neck pain, or night sweats. The review of systems is otherwise negative other than for that already noted above, and at least 10 systems have been reviewed. Physical Exam Physical Exam: The patient is awake, alert and oriented 3, well developed and well nourished, normocephalic and atraumatic, lying in bed and in no acute distress. HEENT--PERRL, EOMI, mucous membranes and oropharynx dry. Neck--supple. No JVD. No bruits. Thyroid normal, trachea midline, no adenopathy. Heart--normal S1 and S2. No murmurs, rubs or gallops. Lungs--clear bilaterally, no respiratory distress, no accessory muscle use. Abdomen--absent bowel sounds. Mildly firm. Generalized tenderness. Mildly distended. Extremities--no cyanosis or clubbing. No edema. There are good distal pulses b/l. Dermatologic--normal skin turgor, normal color, no abnormal lymph nodes, no rash. Neurologic--cranial nerves II through XII grossly intact. Rheumatologic--normal range of motion. Psychiatric--normal affect. Results & Data Results & Data Vital Signs (Past 12 Hours) Vital Signs Temp Pulse Resp BP Pulse Ox O2 Del Method 11/09/22 00:41 100 11/09/22 00:12 165/103 H 11/08/22 23:46 156/102 H 11/08/22 23:46 88 14 96 11/08/22 23:40 90 21 98 11/08/22 23:39 88 11/08/22 22:57 36.7 C 89 18 140/105 H 98 Room Air Laboratory Results Laboratory Results WBC 15.53 K/ul (4.8-10.8) H 11/08/22 23:50 RBC 4.30 M/uL (4.20-5.40) 11/08/22 23:50 Hgb 13.7 g/dl (12.0-16.0) 11/08/22 23:50 Hct 38.6 % (37.0-47.0) 11/08/22 23:50 MCV 89.8 fL (80.0-100.0) 11/08/22 23:50 MCH 31.9 pg (25.0-34.0) 11/08/22 23:50 MCHC 35.5 g/dL (32.0-36.0) 11/08/22 23:50 RDW Std Deviation 39.5 fL (36.4-46.3) 11/08/22 23:50 RDW Coeff of Fadia 12.0 % (11.5-14.5) 11/08/22 23:50 Plt Count 298 K/uL (130-400) 11/08/22 23:50 MPV 9.6 fL (9.4-12.4) 11/08/22 23:50 Immature Gran % (Auto) 0.3 % 11/08/22 23:50 Neut % (Auto) 81.0 % 11/08/22 23:50 Lymph % (Auto) 12.4 % 11/08/22 23:50 [place] % (Auto) 5.5 % 11/08/22 23:50 Eos % (Auto) 0.6 % 11/08/22 23:50 Baso % (Auto) 0.2 % 11/08/22 23:50 Neut # (Auto) 12.59 K/uL (1.40-6.50) H 11/08/22 23:50 Lymph # (Auto) 1.92 K/uL (1.2-3.4) 11/08/22 23:50 [place] # (Auto) 0.85 K/uL (0.11-0.59) H 11/08/22 23:50 Eos # (Auto) 0.10 K/uL (0-0.50) 11/08/22 23:50 Baso # (Auto) 0.03 K/uL (0-0.2) 11/08/22 23:50 Immature Gran # (Auto) 0.04 K/uL (0.01-0.20) 11/08/22 23:50 Sodium 134 mmol/L (136-145) L 11/08/22 23:50 Potassium 3.4 mmol/L (3.5-5.1) L 11/08/22 23:50 Chloride 98 mmol/L (98-107) 11/08/22 23:50 Carbon Dioxide 27 mmol/L (21-32) 11/08/22 23:50 Anion Gap 9 (3-11) 11/08/22 23:50 BUN 4 mg/dl (6-23) L 11/08/22 23:50 Creatinine 0.73 mg/dl (0.6-1.2) 11/08/22 23:50 Est Cr Clr Drug Dosing 81.6 ml/min 11/08/22 23:50 Est GFR ( Amer) 111.3 ml/min 11/08/22 23:50 Est GFR (Non-Af Amer) 96.0 ml/min 11/08/22 23:50 BUN/Creatinine Ratio 5.5 (10-20) L 11/08/22 23:50 Glucose 117 mg/dl (70-99(Fasting)) H 11/08/22 23:50 Lactate 0.9 mmol/L (0.4-2.0) 11/09/22 00:58 Calcium 8.8 mg/dl (8.6-10.3) 11/08/22 23:50 Total Bilirubin 0.4 mg/dl (0.2-1.0) 11/08/22 23:50 AST 14 U/L (13-39) 11/08/22 23:50 ALT 21 U/L (7-52) 11/08/22 23:50 Alkaline Phosphatase 47 U/L (34-104) 11/08/22 23:50 Total Protein 6.8 gm/dl (6.0-8.3) 11/08/22 23:50 Albumin 4.0 gm/dl (3.4-5.0) 11/08/22 23:50 Globulin 2.8 gm/dl (2.5-4.0) 11/08/22 23:50 Albumin/Globulin Ratio 1.4 (0.9-2) 11/08/22 23:50 Lipase 9 U/L (11-82) L 11/08/22 23:50 Urine Color Yellow 11/09/22 00:15 Urine Appearance Turbid (Clear) A 11/09/22 00:15 Urine pH >= 9.0 (4.5-7.5) H 11/09/22 00:15 Ur Specific [place] 1.014 (1.000-1.030) 11/09/22 00:15 Urine Protein Negative (Negative) 11/09/22 00:15 Urine Glucose (UA) Negative (Negative) 11/09/22 00:15 Urine Ketones 1+ (Negative) H 11/09/22 00:15 Urine Blood 2+ (Negative) H 11/09/22 00:15 Urine Nitrite Negative (Negative) 11/09/22 00:15 Urine Bilirubin Negative (Negative) 11/09/22 00:15 Urine Urobilinogen Negative (Negative) 11/09/22 00:15 Ur Leukocyte Esterase Trace (Negative) H 11/09/22 00:15 Urine WBC (Auto) 10-30 /hpf (0-5) H 11/09/22 00:15 Urine RBC (Auto) >30 /hpf (0-4) H 11/09/22 00:15 U Hyaline Cast (Auto) 1-5 /lpf (0-5) 11/09/22 00:15 U Epithel Cells (Auto) >30 /lpf (0-5) H 11/09/22 00:15 Urine Bacteria (Auto) Negative (Negative) 11/09/22 00:15 Adenovirus (PCR) Not Detected (NotDetected) 11/09/22 00:50 B. pertussis DNA (PCR) Not Detected (NotDetected) 11/09/22 00:50 B.parapertussis DNA PCR Not Detected (NotDetected) 11/09/22 00:50 C. pneumoniae DNA (PCR) Not Detected (NotDetected) 11/09/22 00:50 Coronavirus OC43 (PCR) Not Detected (NotDetected) 11/09/22 00:50 Coronavirus HKU1 (PCR) Not Detected (NotDetected) 11/09/22 00:50 Coronavirus 229E (PCR) Not Detected (NotDetected) 11/09/22 00:50 SARS-CoV-2 (PCR) Not Detected (NotDetected) 11/09/22 00:50 Coronavirus NL63 (PCR) Not Detected (NotDetected) 11/09/22 00:50 Human Metapneumovir PCR Not Detected (NotDetected) 11/09/22 00:50 Influenza Type A (PCR) Not Detected (NotDetected) 11/09/22 00:50 Influenza Type B (PCR) Not Detected (NotDetected) 11/09/22 00:50 M. pneumoniae (PCR) Not Detected (NotDetected) 11/09/22 00:50 Parainfluenza 1 (PCR) Not Detected (NotDetected) 11/09/22 00:50 Parainfluenza 2 (PCR) Not Detected (NotDetected) 11/09/22 00:50 Parainfluenza 3 (PCR) Not Detected (NotDetected) 11/09/22 00:50 Parainfluenza 4 (PCR) Not Detected (NotDetected) 11/09/22 00:50 RSV (PCR) Not Detected (NotDetected) 11/09/22 00:50 Entero/Rhino (PCR) Not Detected (NotDetected) 11/09/22 00:50 Impressions Abdomen/Pelvis CT 11/08/22 23:58 Exam(s): CT ABDOMEN + PELVIS With Contrast IV Amt: 87 ml optiray 320 EXAM: CT Abdomen and Pelvis With Intravenous Contrast CLINICAL HISTORY: Reason for exam: abd pain, hx breast ca, recent port placement. TECHNIQUE: Axial computed tomography images of the abdomen and pelvis with intravenous contrast. CTDI is 12.78 mGy and DLP is 611.85 mGy-cm. Automated exposure control was utilized for the study. A dose lowering technique was utilized adhering to the principles of ALARA. CONTRAST: Patient received 87 ml optiray 320 of IV contrast COMPARISON: 05/11/2017 FINDINGS: Lung bases: Unremarkable. No mass. No consolidation. ABDOMEN: Liver: Unremarkable. No mass. Gallbladder and bile ducts: Unremarkable. No calcified stones. No ductal dilation. Pancreas: Unremarkable. No mass. No ductal dilation. Spleen: Unremarkable. No splenomegaly. Adrenals: Unremarkable. No mass. Kidneys and ureters: Left lower pole renal hypodensity likely representing a cyst. No hydronephrosis. Stomach and bowel: Marked distention of the colon and proximal small bowel with a transition between dilated and nondilated loops of small bowel within the left lower quadrant. No mucosal thickening. PELVIS: Appendix: No findings to suggest acute appendicitis. Bladder: Unremarkable. No mass. Reproductive: Unremarkable as visualized. ABDOMEN and PELVIS: Intraperitoneal space: Unremarkable. No free air. No significant fluid collection. Bones/joints: No acute fracture. No dislocation. Soft tissues: Unremarkable. Vasculature: Unremarkable. No abdominal aortic aneurysm. Lymph nodes: Unremarkable. No enlarged lymph nodes. 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
--- NOTE | 2022-11-09 01:52 | Surgery Consultation ---
Date of Consultation November 09, 2022 Assessment & Plan (1) Small bowel obstruction: I discussed with the treating clinician emergency department the patient is being admitted on the hospitalist service. We recommend proceeding as follows: Provide analgesics Provide antiemetics Implement n.p.o. status I feel the patient would benefit from an NG tube as she has marked distention of her stomach on CT scan as well as some distention of her abdomen. This has been ordered and is going to be placed by the nursing staff IV fluids to be provided for hydration with potassium supplementation due to her noted hypokalemia Serial labs should be followed The hospitalist note that we will be initiating antibiotics for suspected urinary tract infection. I discussed the CT scan findings with the patient and outlined the treatment for small bowel obstruction as noted above. Of note, due to the bulging in her epigastric area and findings on physical exam I did personally call the radiologist from [facility] and reviewed the CT scan. After further review he did note that there was a fat-containing umbilical hernia noted and specifically noted that there is no bowel in this hernia. I also specifically asked if he saw any evidence of an internal hernia which he said he did not see. As noted in the radiology read he did note that there was a transition point to the small bowel obstruction in the left lower quadrant. Additional recommendations to be forthcoming based on her clinical course as it unfolds As noted above I felt the patient would benefit from an NG tube which she was agreeable to. I have asked the nurses to place this modality. I visited with the patient after my initial encounter and the nurses have placed an NG tube. They noted that the patient had approximately 200 cc of emesis while the NG tube is being placed and ultimately had approximately 600 to 700 cc of drainage immediately retrieved following insertion of the NG tube. Although the patient did report some discomfort from the NG tube she did note improvement in her abdomen following NG tube placement. On repeat exam the patient's abdomen seems less distended with NG tube in place. We will continue to follow closely while she is in the hospital. Patient seen. As above. Some clinical improvement since NG tube placed. She can have Chloraseptic [place] and ice chips. We will repeat KUB tomorrow. No urgent indication for surgical exploration. We will continue to follow along closely. History of Present Illness Reason for Consultation: Small bowel obstruction History of Present Illness This is a 52-year-old female with an underlying history of breast cancer. She was diagnosed with breast cancer in June of this year and underwent a breast lumpectomy in August of this year by Dr. Mckenzie. She had an a-port placed 2 days ago to initiate chemotherapy. Patient says that earlier today she developed a bulge in her upper abdomen and began to have abdominal pain/pressure as well as bloating. She has had nausea without vomiting. She notes her last bowel movement was on the morning of 11/07/2022 which was normal. Because of her symptoms she presented the emergency department. She said that she has not been passing flatus since arrival to the emergency department. She has never had a small bowel obstruction before and has never undergone a colonoscopy. And has never had any abdominal surgeries. Since arrival to hospital the patient has had labs and imaging which independent reviewed. The patient did have a CT scan of the abdomen pelvis that showed evidence of a high-grade small bowel obstruction of the transition point in the left lower quadrant. The stomach was noted to be markedly distended on the study. Chest x-ray did not show any evidence of pneumonia or free air. Labs include a CBC were white blood cell count was elevated 15.5. Hemoglobin, hematocrit, and platelet count were within normal range. Chemistry profile showed sodium and potassium 134 and 3.4. BUN and creatinine were 4 and 0.7. There is no elevation of patient's lactic acid level. There is no elevation of LFTs or lipase. Urinalysis was concerning for a urinary tract infection as she had 10-30 white blood cells per high-power field and trace leukocyte Estrace. The specimen was negative for nitrites as well as bacteria. At the time of my interview the patient was uncomfortable but she was in no distress. Allergies Allergy/AdvReac Type Severity Reaction Status Date / Time Penicillins Allergy Unknown unk - as a Verified 11/07/22 06:38 child escitalopram [From Lexapro] AdvReac Intermediate Insomnia Verified 11/07/22 06:38 Home Medications Medication Instructions Recorded Confirmed Type hydrocortisone 2.5 % topical cream 1 applic NE DAILY PRN hemorrhoids 06/01/22 11/02/22 Rx with perineal applicator #30 grams (Proctozone-HC) thyroid (pork) 30 mg tablet 30 mg PO BID #60 tabs 06/01/22 11/07/22 Rx ([place] Thyroid) Lactobacillus acidophilus 1.5 mg 1.5 mg PO QAM 09/07/22 11/02/22 History (250 million cell) capsule (Probiotic Acidophilus) Standard Process Cataplex Acp 1 cap PO QPM 09/07/22 11/02/22 History Standard Process Chlorophyll 1 dose PO QAM 09/07/22 11/02/22 History lorazepam 0.5 mg tablet 0.5 mg PO TID PRN anxiety #90 tabs 10/19/22 11/07/22 Rx Standard Process Flaxseed 1 tab PO QPM 11/02/22 11/02/22 History Oil/Vitamin B6 Standard Process Multizyme 1 tab PO HS 11/02/22 11/02/22 History Standard Process Vitamin B12 1 tab PO QPM 11/02/22 11/02/22 History Standard Process Zinc 1 tab PO QPM 11/02/22 11/02/22 History betamethasone valerate 0.12 % 1 applic topical BID PRN Rash 11/02/22 11/02/22 History topical foam diphenhydramine HCl 50 mg capsule 50 mg PO HS 11/02/22 11/07/22 History tamsulosin 0.4 mg capsule 0.4 mg PO QPM 11/02/22 11/07/22 History oxycodone 5 mg tablet 5 - 10 mg PO Q6H PRN pain #20 tabs 11/07/22 Rx sulfamethoxazole 800 0.775 tab PO BID #6 tabs 11/07/22 Rx mg-trimethoprim 160 mg tablet (Bactrim DS) hydroxyzine HCl 10 mg tablet 10 mg PO HS PRN bladder pain #30 11/08/22 11/08/22 Rx tabs oxybutynin chloride 5 mg tablet 5 mg PO Q12H PRN bladder issues 11/08/22 11/08/22 Rx #30 tabs phenazopyridine 200 mg tablet 200 mg PO BID PRN bladder pain #10 11/08/22 11/08/22 Rx (Pyridium) tabs Patient History Medical History Allergic rhinitis Anxiety Breast cancer, left er/pr +,genetic testing negative. 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 Mckenzie S/P lumpectomy, left breast (09/13/22) Left lumpectomy with sentinel lymph node biopsy. Dr. Mckenzie Status post hysteroscopic ablation of endometrium Status post lumbar spine surgery for decompression of spinal cord Family History Father Coronary heart disease Heart disease Uncle Lung cancer maternal Mother Leiomyoma Hypertension Grandmother Stroke Other No family history of adverse response to anesthesia Pure hypercholesterolemia Denies family history of Ovarian cancer Breast cancer Colorectal cancer Social History Smoking Status: Never smoker Second Hand Exposure: No; Do You Dip or Chew Tobacco: No; Hx Alcohol Use: No Hx Substance Use: No Preferred Language: Spanish Communication Ability: Effective Visual Impairment: No Limitations Hearing Ability: Normal Home Health Rn Required: No Beliefs That Will Affect Care: None marital status: Current Living Situation: Spouse current occupational status: employed How many Children do You have: 1 Other Information That Helps Us Care for You: No other: SON Feels Safe at Home: Yes Safety Concerns: Feels Safe At This Time Childhood Exposure to Second-Hand Smoke: Yes during the past year weight has: remained stable Dental Care, Regularly: Yes Physical Activity Frequency: Daily Seatbelt Use: always Sunscreen Use: Yes Assistive Devices: Glasses Review of Systems Constitutional: no fever and no chills Ear, Nose, Mouth, Throat: no hearing loss Respiratory: no cough and no dyspnea Cardiovascular: no chest pain Gastrointestinal: as per Subjective / HPI Genitourinary: no dysuria Musculoskeletal: no back pain Integumentary: no rash Neurologic: no localized weakness Physical Exam Constitutional: WD/WN, vitals as above Eyes: no conjunctival abnormality ENMT: Ears: no external ear abnormality Neck: trachea midline Respiratory: normal respiratory effort, lungs clear to auscultation Cardiovascular: Rate/Rhythm: regular rate and regular rhythm Gastrointestinal (Abdomen): Abdomen is nonrigid but it is mildly distended. Bowel sounds are markedly hypoactive. There is no rebound tenderness or guarding but there is generalized pain with palpation throughout her abdomen. The patient did have a masslike bulge in the epigastric area which was somewhat tender to palpation. There are no overlying skin changes of this bulge. Musculoskeletal: No calf tenderness Skin: no rashes Neurologic: moves all extremities Psychiatric: A+Ox3, euthymic affect Results & Data Vital Signs (Past 12 Hours) Vital Signs Temp Pulse Resp BP Pulse Ox O2 Del Method 11/09/22 00:41 100 11/09/22 00:12 165/103 H 11/08/22 23:46 156/102 H 11/08/22 23:46 88 14 96 11/08/22 23:40 90 21 98 11/08/22 23:39 88 11/08/22 22:57 36.7 C 89 18 140/105 H 98 Room Air PG Care Time/CCT Total # of Minutes Spent Total Time Spent with Patient: Total time spent is greater than 50% in coordination of care (as documented) at patient's floor/unit and/or counseling patient: Coding Level of Care Code 07901 IN/OBS CONSULT LVL 5,80M Diagnoses Small bowel obstruction K56.609
[2022-11-09] MEDS ORDERED: ONDANSETRON INJ 2 MG/ML 2 ML VIAL IV PRN (01:55)
[2022-11-09 02:58] LABS: Adenovirus PCR Not Detected (NotDetected); Bordetella parapertussis PCR Not Detected (NotDetected); Bordetella pertussis PCR Not Detected (NotDetected); Chlamydia pneumoniae PCR Not Detected (NotDetected); Coronavirus 229E PCR Not Detected (NotDetected); Coronavirus CoV-2 (COVID19)PCR Not Detected (NotDetected); Coronavirus HKU1 PCR Not Detected (NotDetected); Coronavirus NL63 PCR Not Detected (NotDetected); Coronavirus OC43PCR Not Detected (NotDetected); Human Metapneumovirus PCR Not Detected (NotDetected); Influenza A PCR Not Detected (NotDetected); Influenza B PCR Not Detected (NotDetected); Mycoplasma pneumoniae PCR Not Detected (NotDetected); Parainfluenza Virus 1 PCR Not Detected (NotDetected); Parainfluenza Virus 2 PCR Not Detected (NotDetected); Parainfluenza Virus 3 PCR Not Detected (NotDetected); Parainfluenza Virus 4 PCR Not Detected (NotDetected); Respiratory Syncytial VirusPCR Not Detected (NotDetected); Rhinovirus/Enterovirus PCR Not Detected (NotDetected)
[2022-11-09] MEDS ORDERED: CIPROFLOXACIN / D5W 400 MG/200 ML BAG IV SCH (03:00)
[2022-11-09] MEDS ORDERED: metroNIDAZOLE 500 MG/100 ML BAG IV SCH (03:00)
[2022-11-09] MEDS: NSS + 20MEQ KCL 20 MEQ/1,000 ML BAG IV SCH ×2 (03:25→12:46)
[2022-11-09] MEDS ORDERED: METOPROLOL TARTRATE 1 MG/ML VIAL IV PRN (04:09)
[2022-11-09 04:58] LABS: Basophils # (auto) 0.03 K/uL (0-0.2); Basophils % (auto) 0.3 %; Eosinophils # (auto) 0.05 K/uL (0-0.50); Eosinophils % (auto) 0.4 %; Hematocrit (blood only) 37.8 % (37.0-47.0); Hemoglobin 13.4 g/dl (12.0-16.0); Immature Granulocytes # (auto) 0.04 K/uL (0.01-0.20); Immature Granulocytes % (auto) 0.3 %; Lymphocytes # (auto) 2.29 K/uL (1.2-3.4); Lymphocytes % (auto) 19.5 %; Mean Corpuscular Hemoglobin 31.9 pg (25.0-34.0); Mean Corpuscular Hgb Conc 35.4 g/dL (32.0-36.0); Mean Platelet Volume 9.5 fL (9.4-12.4); Monocytes # (auto) 0.64 K/uL (0.11-0.59); Monocytes % (auto) 5.4 %; Neutrophils # (auto) 8.72 K/uL (1.40-6.50); Neutrophils % (auto) 74.1 %; Platelet Count 280 K/uL (130-400); RDW Coefficient of Variation 11.9 % (11.5-14.5); RDW Standard Deviation 38.7 fL (36.4-46.3); White Blood Count 11.77 K/ul (4.8-10.8)
[2022-11-09 05:13] LABS: Albumin Globulin Ratio 1.4 (0.9-2); Albumin Level 3.8 gm/dl (3.4-5.0); BUN Creatinine Ratio 5.6 (10-20); Bilirubin,Total 0.4 mg/dl (0.2-1.0); Calcium 8.8 mg/dl (8.6-10.3); Creatinine Clr Calc Pharmacy 82.7 ml/min; Est GFR (African American) 113.2 ml/min; Est GFR (Non-African American) 97.7 ml/min; Globulin 2.7 gm/dl (2.5-4.0); Potassium 3.5 mmol/L (3.5-5.1); Total Protein 6.5 gm/dl (6.0-8.3)
--- NOTE | 2022-11-09 05:23 | Emergency Department Note ---
History of Present Illness General Chief complaint: Abdominal Pain Stated complaint: ABD PAIN/BULDGE, STOMACH UPSET Time Seen by Provider: 11/08/22 23:52 History of Present Illness Maximum Pain Intensity: 7 This is a 52-year-old female presenting to the emergency department for evaluation of abdominal pain and discomfort. She feels like she is very bloated in her abdomen. Symptoms have been significantly worse over the past few hours, and seem to have begun around 5 PM. The patient has a history of breast cancer and recently had a port placed for treatment. She is to begin chemotherapy later this week. She has not had fevers or chills. She rates her discomfort a 7/10. She has not taken anything [id number] for symptoms. Home Medications Medication Instructions Recorded Confirmed Type hydrocortisone 2.5 % topical cream 1 applic CO DAILY PRN hemorrhoids 06/01/22 11/02/22 Rx with perineal applicator #30 grams (Proctozone-HC) thyroid (pork) 30 mg tablet 30 mg PO BID #60 tabs 06/01/22 11/07/22 Rx (Harmans Thyroid) Lactobacillus acidophilus 1.5 mg 1.5 mg PO QAM 09/07/22 11/02/22 History (250 million cell) capsule (Probiotic Acidophilus) Standard Process Cataplex Acp 1 cap PO QPM 09/07/22 11/02/22 History Standard Process Chlorophyll 1 dose PO QAM 09/07/22 11/02/22 History lorazepam 0.5 mg tablet 0.5 mg PO TID PRN anxiety #90 tabs 10/19/22 11/07/22 Rx Standard Process Flaxseed 1 tab PO QPM 11/02/22 11/02/22 History Oil/Vitamin B6 Standard Process Multizyme 1 tab PO HS 11/02/22 11/02/22 History Standard Process Vitamin B12 1 tab PO QPM 11/02/22 11/02/22 History Standard Process Zinc 1 tab PO QPM 11/02/22 11/02/22 History betamethasone valerate 0.12 % 1 applic topical BID PRN Rash 11/02/22 11/02/22 History topical foam diphenhydramine HCl 50 mg capsule 50 mg PO HS 11/02/22 11/07/22 History tamsulosin 0.4 mg capsule 0.4 mg PO QPM 11/02/22 11/07/22 History oxycodone 5 mg tablet 5 - 10 mg PO Q6H PRN pain #20 tabs 11/07/22 Rx sulfamethoxazole 800 0.775 tab PO BID #6 tabs 11/07/22 Rx mg-trimethoprim 160 mg tablet (Bactrim DS) hydroxyzine HCl 10 mg tablet 10 mg PO HS PRN bladder pain #30 11/08/22 11/08/22 Rx tabs oxybutynin chloride 5 mg tablet 5 mg PO Q12H PRN bladder issues 11/08/22 11/08/22 Rx #30 tabs phenazopyridine 200 mg tablet 200 mg PO BID PRN bladder pain #10 11/08/22 11/08/22 Rx (Pyridium) tabs Allergies Allergy/AdvReac Type Severity Reaction Status Date / Time Penicillins Allergy Unknown unk - as a Verified 11/07/22 06:38 child escitalopram [From Lexapro] AdvReac Intermediate Insomnia Verified 11/07/22 06:38 Past Med/Surg History Medical History Allergic rhinitis Anxiety Breast cancer, left er/pr +,genetic testing negative. 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 Mckenzie S/P lumpectomy, left breast (09/13/22) Left lumpectomy with sentinel lymph node biopsy. Dr. Mckenzie Status post hysteroscopic ablation of endometrium Status post lumbar spine surgery for decompression of spinal cord Family History Father Coronary heart disease Heart disease Uncle Lung cancer maternal Mother Leiomyoma Hypertension Grandmother Stroke Other No family history of adverse response to anesthesia Pure hypercholesterolemia Denies family history of Ovarian cancer Breast cancer Colorectal cancer Social History Smoking Status: Never smoker Second Hand Exposure: No; Do You Dip or Chew Tobacco: No; Hx Alcohol Use: Yes Alcohol Intake Frequency: 2-3 x/Week Hx Substance Use: No Preferred Language: French Communication Ability: Effective Visual Impairment: No Limitations Hearing Ability: Normal Animal Keeper Head Required: No Beliefs That Will Affect Care: None marital status: Current Living Situation: Spouse and Family current occupational status: employed How many Children do You have: 1 other: SON Feels Safe at Home: Yes Childhood Exposure to Second-Hand Smoke: Yes during the past year weight has: remained stable Dental Care, Regularly: Yes Physical Activity Frequency: Daily Seatbelt Use: always Sunscreen Use: Yes Assistive Devices: Glasses Review of Systems A total of 10 systems reviewed and were otherwise negative Physical Exam Vital Signs Vital Signs - 24 hr 11/08/22 22:57 11/08/22 23:39 11/08/22 23:40 Temperature 36.7 C Temperature Source Temporal Artery Scan Pulse Rate 89 88 90 Pulse Rate from SpO2 Sensor 93 H Pulse Rhythm Regular Pulse Strength Normal Respiratory Rate 18 21 Respiratory Effort / Characteristics Non-Labored Spontaneous Respiratory Depth Normal Respiratory Pattern Regular Blood Pressure 140/105 H Blood Pressure Mean 116 Blood Pressure Position Sitting Pulse Oximetry 98 98 Oxygen Delivery Method Room Air Sepsis Recent Fever Within 48 Hours No Sepsis New/Unexplained Change in Mental Status N/A Sepsis Action Taken by Nursing No Action Required 11/08/22 23:46 11/08/22 23:46 11/09/22 00:12 Temperature Temperature Source Pulse Rate 88 Pulse Rate from SpO2 Sensor 87 Pulse Rhythm Pulse Strength Respiratory Rate 14 Respiratory Effort / Characteristics Respiratory Depth Respiratory Pattern Blood Pressure 156/102 H 165/103 H Blood Pressure Mean 120 123 Blood Pressure Position Pulse Oximetry 96 Oxygen Delivery Method Sepsis Recent Fever Within 48 Hours Sepsis New/Unexplained Change in Mental Status Sepsis Action Taken by Nursing 11/09/22 00:41 11/09/22 01:00 11/09/22 01:00 Temperature Temperature Source Pulse Rate Pulse Rate from SpO2 Sensor 100 H 85 Pulse Rhythm Pulse Strength Respiratory Rate Respiratory Effort / Characteristics Respiratory Depth Respiratory Pattern Blood Pressure 150/103 H Blood Pressure Mean 118 Blood Pressure Position Pulse Oximetry 100 98 Oxygen Delivery Method Sepsis Recent Fever Within 48 Hours Sepsis New/Unexplained Change in Mental Status Sepsis Action Taken by Nursing 11/09/22 01:30 11/09/22 01:30 Temperature Temperature Source Pulse Rate Pulse Rate from SpO2 Sensor 94 H Pulse Rhythm Pulse Strength Respiratory Rate Respiratory Effort / Characteristics Respiratory Depth Respiratory Pattern Blood Pressure 160/129 H Blood Pressure Mean 139 Blood Pressure Position Pulse Oximetry 98 Oxygen Delivery Method Sepsis Recent Fever Within 48 Hours Sepsis New/Unexplained Change in Mental Status Sepsis Action Taken by Nursing VITALS: Vitals are noted on the nurse's note and reviewed by myself. Vital signs stable. GENERAL: Well-developed, well-nourished, white female, who is moderately uncomfortable on presentation. She is overall cooperative. HEAD: Normocephalic atraumatic. NECK: Supple without nuchal rigidity. No lymphadenopathy. No thyromegaly. Cervical spine is nontender. HEART: Regular rate and rhythm without murmurs gallops or rubs. LUNGS: Clear to auscultation bilaterally without wheezes, rales or rhonchi. No retractions or accessory muscle use. ABDOMEN: Slightly distended with hypoactive sounds. No distinct point tenderness in lower abdomen. MUSCULOSKELETAL: No muscle atrophy, erythema, or edema noted. Full range of motion in all extremities. Course Administered Medications Potassium Chloride/Sodium Chloride (Normal Saline W/20 Meq Kcl) 20 meq in 1,000 mls @ 100 mls/hr IV .Q10H HANNAH Stop: 12/09/22 01:54 Last Admin: 11/09/22 03:25 Dose: 100 mls/hr Documented By: LUIS Ciprofloxacin (Cipro / D5w) 400 mg in 200 mls @ 200 mls/hr IV Q12H HANNAH Stop: 11/19/22 02:59 Last Admin: 11/09/22 03:25 Dose: 200 mls/hr Documented By: LUIS Metronidazole (Flagyl) 500 mg in 100 mls @ 100 mls/hr IV Q8H HANNAH Stop: 11/19/22 02:59 Last Admin: 11/09/22 03:25 Dose: 100 mls/hr Documented By: LUIS Discontinued Medications Sodium Chloride (Nss 1000ml) 1,000 mls @ 999 mls/hr IV .Q1H1M HANNAH Stop: 11/09/22 00:45 Last Infusion: 11/09/22 01:48 Dose: 0 mls/hr Documented By: Admin: 11/09/22 00:09 Dose: 999 mls/hr Documented By: LUIS Acetaminophen (Ofirmev) 1,000 mg in 100 mls @ 400 mls/hr IV NOW STA Stop: 11/09/22 00:17 Last Infusion: 11/09/22 01:48 Dose: 0 mls/hr Documented By: Admin: 11/09/22 00:09 Dose: 400 mls/hr Documented By: LUIS Ioversol (Optiray 320 100ml) 100 ml IV ONCE ONE Stop: 11/09/22 00:38 Last Admin: 11/09/22 00:37 Dose: 87 ml Documented By: NATALIA Ondansetron HCl (Ondansetron Inj 2 Mg/Ml 2 Ml Vial) 4 mg IV NOW STA Stop: 11/08/22 23:59 Last Admin: 11/09/22 00:08 Dose: 4 mg Documented By: LUIS Medical Decision Making Differential Diagnosis Differential diagnosis: Etiologies such as biliary colic, cholecystitis, hepatitis, pancreatitis, cardi ac disease, pancreatitis, gastritis, peptic ulcer disease, appendicitis, cystitis, diverticulitis, mesenteric ischemia, inflammatory bowel disease, ileus, bowel obstruction, testicular/adnexal torsion, aortic pathology, shingles, as well as others were considered Laboratory Data 11/09/22 04:33 11/09/22 04:33 Lab Results 11/08/22 11/08/22 11/09/22 Range/Units 23:50 23:50 00:15 WBC 15.53 H (4.8-10.8) K/ul RBC 4.30 (4.20-5.40) M/uL Hgb 13.7 (12.0-16.0) g/dl Hct 38.6 (37.0-47.0) % MCV 89.8 (80.0-100.0) fL MCH 31.9 (25.0-34.0) pg MCHC 35.5 (32.0-36.0) g/dL RDW Std Deviation 39.5 (36.4-46.3) fL RDW Coeff of Fadia 12.0 (11.5-14.5) % Plt Count 298 (130-400) K/uL MPV 9.6 (9.4-12.4) fL Immature Gran % (Auto) 0.3 % Neut % (Auto) 81.0 % Lymph % (Auto) 12.4 % [place] % (Auto) 5.5 % Eos % (Auto) 0.6 % Baso % (Auto) 0.2 % Neut # (Auto) 12.59 H (1.40-6.50) K/uL Lymph # (Auto) 1.92 (1.2-3.4) K/uL Limestone # (Auto) 0.85 H (0.11-0.59) K/uL Eos # (Auto) 0.10 (0-0.50) K/uL Baso # (Auto) 0.03 (0-0.2) K/uL Immature Gran # (Auto) 0.04 (0.01-0.20) K/uL Sodium 134 L (136-145) mmol/L Potassium 3.4 L (3.5-5.1) mmol/L Chloride 98 (98-107) mmol/L Carbon Dioxide 27 (21-32) mmol/L Anion Gap 9 (3-11) BUN 4 L (6-23) mg/dl Creatinine 0.73 (0.6-1.2) mg/dl Est Cr Clr Drug Dosing 81.6 ml/min Est GFR ( Amer) 111.3 ml/min Est GFR (Non-Af Amer) 96.0 ml/min BUN/Creatinine Ratio 5.5 L (10-20) Glucose 117 H (70-99(Fasting)) mg/dl Lactate (0.4-2.0) mmol/L Calcium 8.8 (8.6-10.3) mg/dl Total Bilirubin 0.4 (0.2-1.0) mg/dl AST 14 (13-39) U/L ALT 21 (7-52) U/L Alkaline Phosphatase 47 (34-104) U/L Total Protein 6.8 (6.0-8.3) gm/dl Albumin 4.0 (3.4-5.0) gm/dl Globulin 2.8 (2.5-4.0) gm/dl Albumin/Globulin Ratio 1.4 (0.9-2) Lipase 9 L (11-82) U/L Urine Color Yellow Urine Appearance Turbid A (Clear) Urine pH >= 9.0 H (4.5-7.5) Ur Specific Stinnett 1.014 (1.000-1.030) Urine Protein Negative (Negative) Urine Glucose (UA) Negative (Negative) Urine Ketones 1+ H (Negative) Urine Blood 2+ H (Negative) Urine Nitrite Negative (Negative) Urine Bilirubin Negative (Negative) Urine Urobilinogen Negative (Negative) Ur Leukocyte Esterase Trace H (Negative) Urine WBC (Auto) 10-30 H (0-5) /hpf Urine RBC (Auto) >30 H (0-4) /hpf U Hyaline Cast (Auto) 1-5 (0-5) /lpf U Epithel Cells (Auto) >30 H (0-5) /lpf Urine Bacteria (Auto) Negative (Negative) Adenovirus (PCR) (NotDetected) B. pertussis DNA (PCR) (NotDetected) B.parapertussis DNA PCR (NotDetected) C. pneumoniae DNA (PCR) (NotDetected) Coronavirus OC43 (PCR) (NotDetected) Coronavirus HKU1 (PCR) (NotDetected) Coronavirus 229E (PCR) (NotDetected) SARS-CoV-2 (PCR) (NotDetected) Coronavirus NL63 (PCR) (NotDetected) Human Metapneumovir PCR (NotDetected) Influenza Type A (PCR) (NotDetected) Influenza Type B (PCR) (NotDetected) M. pneumoniae (PCR) (NotDetected) Parainfluenza 1 (PCR) (NotDetected) Parainfluenza 2 (PCR) (NotDetected) Parainfluenza 3 (PCR) (NotDetected) Parainfluenza 4 (PCR) (NotDetected) RSV (PCR) (NotDetected) Entero/Rhino (PCR) (NotDetected) 11/09/22 11/09/22 Range/Units 00:50 00:58 WBC (4.8-10.8) K/ul RBC (4.20-5.40) M/uL Hgb (12.0-16.0) g/dl Hct (37.0-47.0) % MCV (80.0-100.0) fL MCH (25.0-34.0) pg MCHC (32.0-36.0) g/dL RDW Std Deviation (36.4-46.3) fL RDW Coeff of Fadia (11.5-14.5) % Plt Count (130-400) K/uL MPV (9.4-12.4) fL Immature Gran % (Auto) % Neut % (Auto) % Lymph % (Auto) % [place] % (Auto) % Eos % (Auto) % Baso % (Auto) % Neut # (Auto) (1.40-6.50) K/uL Lymph # (Auto) (1.2-3.4) K/uL Limestone # (Auto) (0.11-0.59) K/uL Eos # (Auto) (0-0.50) K/uL Baso # (Auto) (0-0.2) K/uL Immature Gran # (Auto) (0.01-0.20) K/uL Sodium (136-145) mmol/L Potassium (3.5-5.1) mmol/L Chloride (98-107) mmol/L Carbon Dioxide (21-32) mmol/L Anion Gap (3-11) BUN (6-23) mg/dl Creatinine (0.6-1.2) mg/dl Est Cr Clr Drug Dosing ml/min Est GFR ( Amer) ml/min Est GFR (Non-Af Amer) ml/min BUN/Creatinine Ratio (10-20) Glucose (70-99(Fasting)) mg/dl Lactate 0.9 (0.4-2.0) mmol/L Calcium (8.6-10.3) mg/dl Total Bilirubin (0.2-1.0) mg/dl AST (13-39) U/L ALT (7-52) U/L Alkaline Phosphatase (34-104) U/L Total Protein (6.0-8.3) gm/dl Albumin (3.4-5.0) gm/dl Globulin (2.5-4.0) gm/dl Albumin/Globulin Ratio (0.9-2) Lipase (11-82) U/L Urine Color Urine Appearance (Clear) Urine pH (4.5-7.5) Ur Specific [place]ett (1.000-1.030) Urine Protein (Negative) Urine Glucose (UA) (Negative) Urine Ketones (Negative) Urine Blood (Negative) Urine Nitrite (Negative) Urine Bilirubin (Negative) Urine Urobilinogen (Negative) Ur Leukocyte Esterase (Negative) Urine WBC (Auto) (0-5) /hpf Urine RBC (Auto) (0-4) /hpf U Hyaline Cast (Auto) (0-5) /lpf U Epithel Cells (Auto) (0-5) /lpf Urine Bacteria (Auto) (Negative) Adenovirus (PCR) Not Detected (NotDetected) B. pertussis DNA (PCR) Not Detected (NotDetected) B.parapertussis DNA PCR Not Detected (NotDetected) C. pneumoniae DNA (PCR) Not Detected (NotDetected) Coronavirus OC43 (PCR) Not Detected (NotDetected) Coronavirus HKU1 (PCR) Not Detected (NotDetected) Coronavirus 229E (PCR) Not Detected (NotDetected) SARS-CoV-2 (PCR) Not Detected (NotDetected) Coronavirus NL63 (PCR) Not Detected (NotDetected) Human Metapneumovir PCR Not Detected (NotDetected) Influenza Type A (PCR) Not Detected (NotDetected) Influenza Type B (PCR) Not Detected (NotDetected) M. pneumoniae (PCR) Not Detected (NotDetected) Parainfluenza 1 (PCR) Not Detected (NotDetected) Parainfluenza 2 (PCR) Not Detected (NotDetected) Parainfluenza 3 (PCR) Not Detected (NotDetected) Parainfluenza 4 (PCR) Not Detected (NotDetected) RSV (PCR) Not Detected (NotDetected) Entero/Rhino (PCR) Not Detected (NotDetected) Imaging Data Radiologist's Impression: Abdomen/Pelvis CT 11/08/22 23:58 Exam(s): CT ABDOMEN + PELVIS With Contrast IV Amt: 87 ml optiray 320 EXAM: CT Abdomen and Pelvis With Intravenous Contrast CLINICAL HISTORY: Reason for exam: abd pain, hx breast ca, recent port placement. TECHNIQUE: Axial computed tomography images of the abdomen and pelvis with intravenous contrast. CTDI is 12.78 mGy and DLP is 611.85 mGy-cm. Automated exposure control was utilized for the study. A dose lowering technique was utilized adhering to the principles of ALARA. CONTRAST: Patient received 87 ml optiray 320 of IV contrast COMPARISON: 05/11/2017 FINDINGS: Lung bases: Unremarkable. No mass. No consolidation. ABDOMEN: Liver: Unremarkable. No mass. Gallbladder and bile ducts: Unremarkable. No calcified stones. No ductal dilation. Pancreas: Unremarkable. No mass. No ductal dilation. Spleen: Unremarkable. No splenomegaly. Adrenals: Unremarkable. No mass. Kidneys and ureters: Left lower pole renal hypodensity likely representing a cyst. No hydronephrosis. Stomach and bowel: Marked distention of the colon and proximal small bowel with a transition between dilated and nondilated loops of small bowel within the left lower quadrant. No mucosal thickening. PELVIS: Appendix: No findings to suggest acute appendicitis. Bladder: Unremarkable. No mass. Reproductive: Unremarkable as visualized. ABDOMEN and PELVIS: Intraperitoneal space: Unremarkable. No free air. No significant fluid collection. Bones/joints: No acute fracture. No dislocation. Soft tissues: Unremarkable. Vasculature: Unremarkable. No abdominal aortic aneurysm. Lymph nodes: Unremarkable. No enlarged lymph nodes. IMPRESSION: High-grade small bowel obstruction with transition point in the left lower quadrant Electronically signed by: Sidney Stack MD 11/09/22 01:10 AM MDM Narrative Physical exam and history were performed. Nursing notes, EMR, and Medication List were personally reviewed. No social concerns were identified as barriers to patients care. Patient appears to have abdominal discomfort bringing her to the ER. IV access was established and labs were obtained. She was hydrated and medicated as above. CT scan of her abdomen and pelvis was performed. An order was placed for continuous cardiac monitoring. The monitor shows a rate of 89 with normal sinus rhythm. Patient's blood work is as above and was reviewed. She does not have a significantly elevated white blood cell count, gross anemia, bandemia, or significant electrolyte imbalance. Lipase and transaminases are not diagnostic. Urine is without distinct evidence of infection, as it does seem contaminated. Cultures pending. CT scan of the belly was reviewed by myself and radiology. CT scan is concerning as the patient appears to have a high-grade small bowel obstruction on imaging. The etiology of this is unclear at this time. Patient is not well for discharge home at this time. Case was discussed with both the on-call surgical team as well as the on-call hospitalist. NG tube was placed. Please see the Hospitalist and surgical team dictations for further patient course, plan, and disposition. The chart was completed utilizing [employer] Voice Recognition Software. Grammatical errors, random word insertions, pronoun errors, and incomplete sentences are an occasional consequence of this system due to software limitations, ambient noise, and hardware issues. Any formal questions or concerns about the content, text, or information contained within the body of this dictation should be directly addressed to the provider for clarification. . Impression & Plan Small bowel obstruction, Abdominal pain Discharge Plan Visit Data Chief Complaint: Abdominal Pain Stated Complaint: ABD PAIN/BULDGE, STOMACH UPSET ED Provider: Mikey Sanchez ED Midlevel Provider: Vasquez Argueta Discharge Problem: Small bowel obstruction, Abdominal pain Discharge Instructions Interventions: ED Discharge Assessment Last Done: 11/09/22 01:55
[2022-11-09] MEDS: LORazepam 2 MG/1 ML VIAL IV PRN ×2 (06:21→22:20)
--- NOTE | 2022-11-09 07:17 | XRay Report ---
XR chest 1V portable HISTORY: recent port placement COMPARISON: Chest 11/07/2022. FINDINGS: A right subclavian Port-A-Cath terminates in the SVC. This remains unchanged. The tubing ap pears intact. No pneumothorax. No pleural effusions. The heart is normal in size. No focal lung conso lidations to suggest a pneumonia. No evidence for pulmonary edema. IMPRESSION: No significant change compared to the prior study. No acute process. ACT 112: Negative or not required by law. Electronically signed by: Romaine Manzano M.D. 11/09/2022 7:14 AM
[2022-11-09] MEDS ORDERED: BENZOCAINE/MENTHOL 18 LOZ/1 BOX MT PRN (08:38)
[2022-11-09] MEDS: CHLORASEPTIC 1.4% SOLN 180 ML BTL MT PRN ×2 (10:01→13:02)
[2022-11-09] MEDS: ceFAZolin 1000MG 1,000 MG/7.5 ML SYR IV SCH ×2 (11:02→21:19)
[2022-11-09] MEDS: PANTOprazole 40 MG in SYRINGE 0 ML IV SCH (12:00)
[2022-11-09 13:30] LABS: BUN Creatinine Ratio 6.3 (10-20); Calcium 8.5 mg/dl (8.6-10.3); Creatinine Clr Calc Pharmacy 93.1 ml/min; Est GFR (African American) 120.6 ml/min; Est GFR (Non-African American) 104.1 ml/min; Magnesium 1.9 mg/dl (1.7-2.4); Potassium 3.9 mmol/L (3.5-5.1)
--- NOTE | 2022-11-09 18:09 | XRay Report ---
KUB CLINICAL HISTORY: check NG tube placement, SBO COMPARISON STUDY: CT of the abdomen and pelvis and chest radiograph performed earlier today. FINDINGS: Right internal jugular [id number] is in place. Tip of the nasogastric tube projects over the gastric cardia. The tube could be advanced 6 cm. Lungs are clear. No pneumothorax or pleural eff usion. Cardiac size is normal. Mediastinal contours are normal. IMPRESSION: Tip of nasogastric tube projects over the gastric cardia. The tube could be advanced 6 c m. ACT 112: Negative or not required by law. Electronically signed by: Leonard Pelayo M.D. 11/09/2022 6:07 PM
[2022-11-09] MEDS ORDERED: FAMOTIDINE 20 MG in SYRINGE 3 ML IV ONE (18:37)
[2022-11-09 19:52] VITALS: O2SAT 97
--- NOTE | 2022-11-09 19:56 | XRay Report ---
KUB CLINICAL HISTORY: reposition of NG tube, verification COMPARISON STUDY: KUB November 09, 2022 at 5:46 PM. FINDINGS: Right subclavian [id number] is in place. Tip of nasogastric tube projects over the body of the stomach. Visualized lungs are clear. IMPRESSION: Tip of nasogastric tube projects over the body of the stomach. ACT 112: Negative or not required by law. Electronically signed by: Leonard Pelayo M.D. 11/09/2022 7:55 PM
[2022-11-09] MEDS: KETOROLAC TROMETHAMINE 15 MG/ML VIAL IV PRN (22:20)
[2022-11-09] MEDS: D5NSS + 20MEQ KCL 20 MEQ/1,000 ML BAG IV SCH (23:42)
[2022-11-10] MEDS: HEPARIN 100 UNIT/ML 5ML FLUSH FLUSH PRN ×2 (06:50→20:21)
[2022-11-10 07:12] LABS: Basophils # (auto) 0.02 K/uL (0-0.2); Basophils % (auto) 0.2 %; Eosinophils % (auto) 2.2 %; Hematocrit (blood only) 35.1 % (37.0-47.0); Hemoglobin 12.1 g/dl (12.0-16.0); Immature Granulocytes # (auto) 0.03 K/uL (0.01-0.20); Immature Granulocytes % (auto) 0.3 %; Lymphocytes # (auto) 1.77 K/uL (1.2-3.4); Lymphocytes % (auto) 19.3 %; Mean Corpuscular Hgb Conc 34.5 g/dL (32.0-36.0); Mean Corpuscular Volume 92.9 fL (80.0-100.0); Mean Platelet Volume 9.4 fL (9.4-12.4); Monocytes # (auto) 0.67 K/uL (0.11-0.59); Monocytes % (auto) 7.3 %; Neutrophils % (auto) 70.7 %; Platelet Count 262 K/uL (130-400); RDW Coefficient of Variation 12.1 % (11.5-14.5); RDW Standard Deviation 41.2 fL (36.4-46.3); Red Blood Count 3.78 M/uL (4.20-5.40); White Blood Count 9.19 K/ul (4.8-10.8)
[2022-11-10 07:24] LABS: Magnesium 1.8 mg/dl (1.7-2.4); Phosphorus 2.8 mg/dl (2.5-4.9)
[2022-11-10 07:34] LABS: BUN Creatinine Ratio 8.5 (10-20); Calcium 8.4 mg/dl (8.6-10.3); Est GFR (African American) 123.9 ml/min; Est GFR (Non-African American) 106.9 ml/min; Potassium 3.7 mmol/L (3.5-5.1)
--- NOTE | 2022-11-10 07:51 | Communication Note ---
Date of Service: November 09, 2022 Saw patient mid-afternoon. Staff had noted, after coming up from ER, that NG tube was not draining despite suction. KUB x-ray obtained - tip of NG high - likely just entering the stomach only. Advanced ~5-6cm -- repeat KUB with appropriate NG placement in the mid stomach. After repositioning the NG tube started to drain again. During my visit she reports no vomiting, no nausea, no pain. Not passing stool or gas yet. She reports going to urgent care in [place] this past weekend. Culture showed group B strep. She does have chronic interstitial cystitis. Exam - gen - pleasant, NAD mouth - MMM heart - RRR, s1 s2, no murmur chest - port R upper chest - clean, dry, no hematoma lungs - CTA b/l abd - mildly distended, BS+, NT, no HSM ext - no edema, pulses 2+ b/l A/P: 1. SBO - s/p NG tube placement - stable, clinically improving, although still no passage of stool/flatus. Cont NPO, IV fluids, walking, etc. KUB x-ray am. Gen surg assistance appreciated. Etiology uncertain - no prior abdominal surgeries. Statistically should be due to adhesions. Alternatively could this be a severe ileus in setting of recent port placement?? But, again, there is a transition point on CT a/p arguing this is SBO and not ileus. 2. group B strep UTI - PCN allergic. Thus, ancef 1gm IV BID. stop cipro/flagyl ordered in ER. 3. add dextrose to IV fluids do to NPO status. repeat labs am Saul Henriquez MD
--- NOTE | 2022-11-10 08:51 | Surgery Progress Note ---
Date of Service November 10, 2022 Assessment & Plan (1) Small bowel obstruction: Plan: Improving. Awaiting this morning's KUB. If it looks improved we will perform a clamping trial prior to removing the NG tube and starting clear liquids. Admission and Anticipated Discharge Date Admission Date: November 09, 2022 Subjective Patient seen. Feeling much better. No nausea or pain. She did begin passing some gas last night. Physical Exam Constitutional: WD/WN, vitals as above no acute distress and not ill appearing Eyes: PERRL, conjunctivae normal, anicteric sclerae EOM intact bilaterally ENMT: external ear and nose normal, oropharynx normal Ears: no hearing impairment Neck: trachea midline, no thyromegaly Respiratory: normal respiratory effort; no respiratory distress and does not use accessory muscles Cardiovascular: Rate/Rhythm: regular rate and regular rhythm Gastrointestinal (Abdomen): Soft. Less distention than yesterday. Positive bowel sounds. Nontender. Skin: no rashes, warm and dry Psychiatric: Orientation: alert, oriented x 3 and cooperative Results & Data Vital Signs (Past 12 Hours) Vital Signs Temp Pulse Resp BP Pulse Ox O2 Del Method 11/10/22 07:25 36.6 C 83 16 131/87 97 Room Air PG Care Time/CCT Total # of Minutes Spent Total Time Spent with Patient: Total time spent is greater than 50% in coordination of care (as documented) at patient's floor/unit and/or counseling patient: Coding Level of Care Code 38990 SUB INP/OBS CARE 2/35MIN Diagnoses Small bowel obstruction K56.609
[2022-11-10] MEDS: ceFAZolin 1000MG 1,000 MG/7.5 ML SYR IV SCH ×2 (10:47→20:22)
[2022-11-10] MEDS: PANTOprazole 40 MG in SYRINGE 0 ML IV SCH (10:47)
[2022-11-10] MEDS: D5NSS + 20MEQ KCL 20 MEQ/1,000 ML BAG IV SCH (11:05)
[2022-11-10] MEDS: KETOROLAC TROMETHAMINE 15 MG/ML VIAL IV PRN (11:28)
--- NOTE | 2022-11-10 12:33 | Hospitalist Progress Note ---
Date of Service November 10, 2022 Assessment & Plan (1) Small bowel obstruction: Plan: Acute/stable - moderate to high risk - High-grade small bowel obstruction- - Kept NPO and NG tube placed to low intermittent suction - NSS + KCl 20 mEq at 100 mL/h - Pantoprazole 40 mg IV daily - Empiric abx ordered (Cipro and Flagyl) - IV pain control ordered - General surgery consulted, appreciate assistance - NGT clamped today, KUB obtained and showed no evidence of SBO - NGT removed and diet advanced to CLD - Capped IVF today (2) Urinary tract infection: Plan: Acute/stable - low to mod risk - H/o chronic interstitial cystitis & chronic pelvic pain, follows with urology - Resume Hydroxyzine and Tamsulosin - Currently on rx for UTI with Ancef 1g IV BID d/t PCN allergy (Cipro and Flagyl d/c'd) - Can convert to Keflex upon d/c (3) Hypothyroidism: Plan: Chronic/stable - Continue thyroid supplementation (4) 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 Will need to wait until this episode is resolved (5) Anxiety: Plan: Chronic/unstable - Certainly worsened since her breast CA diagnosis - Continue Lorazepam 0.5mg TID prn anxiety (6) Insomnia: Plan: Chronic/unstable - Failed melatonin that she tried as outpatient - Will trial Ambien 10mg at HS (previously tried 5mg) Plan Patient is responding well to conservative measures and appears that SBO has resolved. Diet advanced, will observe additional day and likely will be discharged tomorrow barring any overnight complications. Plan has been d/w Dr. Berman. Admission and Anticipated Discharge Date Admission Date: November 09, 2022 Subjective Patient seen on daily rounds this morning. She is resting comfortably in bed and offers no complaints. Denies abd pain, n/v. She had a formed BM this AM and s tarted passing flatus last evening. NG clamped during my assessment with plans to obtain KUB. She also endorsed some faint hematuria when voiding this AM. Has chronic interstitial cystitis for which she follows with urology. Physical Exam Physical Exam: GENERAL: 52 yo well-developed, well-nourished F. AAOx4. NAD. LUNGS: Clear to auscultation bilaterally w/o w/r/r CARDIOVASCULAR: Regular rate and rhythm. ABDOMEN: Soft, non-tender and non-distended. No palpable masses. Bs normoactive x 4 quad. No rigidity or guarding. 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
--- NOTE | 2022-11-10 12:36 | XRay Report ---
KUB HISTORY: Small bowel obstruction. Follow-up. COMPARISON: Abdomen and pelvis CT 11/09/2022. FINDINGS: No dilated loops of bowel to suggest a small bowel obstruction at this time. There is moder ate fecal retention again noted. Calcifications within the left deep pelvis favor phleboliths. The na sogastric tube terminates in the proximal stomach. The fenestrated line is located at the gastroesoph ageal junction. This remains unchanged. This could be advanced by approximately 5 cm. Possible right- sided nephrolithiasis. No pneumoperitoneum or pneumatosis. IMPRESSION: 1. The nasogastric tube terminates within the stomach. This could be advanced by approximately 5 cm. 2. No dilated loops of bowel identified. 3. Moderate fecal retention. 4. Possible right-sided nephrolithiasis. ACT 112: Negative or not required by law. Electronically signed by: Romaine Manzano M.D. 11/10/2022 12:35 PM
[2022-11-10] MEDS ORDERED: hydrOXYzine HCl 10 MG TAB PO PRN (13:25)
[2022-11-10] MEDS ORDERED: LORazepam 0.5 MG TAB PO PRN (13:26)
[2022-11-10] MEDS ORDERED: ZOLPIDEM TARTRATE 10 MG TAB PO PRN (15:01)
[2022-11-10] MEDS ORDERED: TAMSULOSIN HCL 0.4 MG CAP PO SCH (21:00)
[2022-11-11] MEDS: ceFAZolin 1000MG 1,000 MG/7.5 ML SYR IV SCH ×2 (04:12→10:32)
[2022-11-11] MEDS: HEPARIN 100 UNIT/ML 5ML FLUSH FLUSH PRN ×3 (04:12→10:33)
[2022-11-11 07:33] VITALS: BP 123/85; TEMP 97.5
[2022-11-11 07:35] LABS: Basophils # (auto) 0.02 K/uL (0-0.2); Basophils % (auto) 0.3 %; Eosinophils % (auto) 2.9 %; Hematocrit (blood only) 34.8 % (37.0-47.0); Hemoglobin 11.9 g/dl (12.0-16.0); Immature Granulocytes # (auto) 0.02 K/uL (0.01-0.20); Immature Granulocytes % (auto) 0.3 %; Lymphocytes # (auto) 1.78 K/uL (1.2-3.4); Lymphocytes % (auto) 25.6 %; Mean Corpuscular Hemoglobin 31.5 pg (25.0-34.0); Mean Corpuscular Hgb Conc 34.2 g/dL (32.0-36.0); Mean Corpuscular Volume 92.1 fL (80.0-100.0); Mean Platelet Volume 9.5 fL (9.4-12.4); Monocytes # (auto) 0.45 K/uL (0.11-0.59); Monocytes % (auto) 6.5 %; Neutrophils # (auto) 4.48 K/uL (1.40-6.50); Neutrophils % (auto) 64.4 %; Platelet Count 264 K/uL (130-400); RDW Standard Deviation 40.6 fL (36.4-46.3); Red Blood Count 3.78 M/uL (4.20-5.40); White Blood Count 6.95 K/ul (4.8-10.8)
[2022-11-11 07:50] LABS: Creatinine Clr Calc Pharmacy 96.1 ml/min; Est GFR (African American) 121.9 ml/min; Est GFR (Non-African American) 105.1 ml/min
[2022-11-11] MEDS ORDERED: ARMOUR THYROID 30 MG TAB PO SCH (10:15)
--- NOTE | 2022-11-11 11:59 | Discharge Summary ---
Date of Service November 11, 2022 Admission HPI Per Admitting Provider The patient is a 52-year-old female with a past medical history including allergic rhinitis, external hemorrhoids, female stress incontinence, status post lumbar spine surgery for decompression, hypothyroidism, DCIS of left breast, anxiety, insomnia, chronic interstitial cystitis, and L5 vertebral fracture. The patient presents to the emergency department with a cute onset of severe generalized abdominal pain that began around 5:00 this evening. Work-up in the emergency department included CT scan of abdomen pelvis which showed a high- grade small bowel obstruction with transition point in the left lower quadrant. The patient was also assessed by general surgery while in the ED, and will follow along during stay Principal Diagnosis SBO - resolved UTI and interstitial cystitis flare Discharge Exam GENERAL: 52 yo well-developed, well-nourished F. AAOx4. NAD. LUNGS: Clear to auscultation bilaterally w/o w/r/r CARDIOVASCULAR: Regular rate and rhythm. ABDOMEN: Soft, non-tender and non-distended. No palpable masses. Bs normoactive x 4 quad. No rigidity or guarding. Discharge Data Allergies Allergy/AdvReac Type Severity Reaction Status Date / Time Penicillins Allergy Unknown unk - as a Verified 11/07/22 06:38 child escitalopram [From Lexapro] AdvReac Intermediate Insomnia Verified 11/07/22 06:38 Consultations 11/09/22 01:28 ED Decision to Admit Stat 11/09/22 19:41 Consult General Surgery Routine Ordered Studies Abdomen/Pelvis CT 11/08/22 23:58 Exam(s): CT ABDOMEN + PELVIS With Contrast IV Amt: 87 ml optiray 320 EXAM: CT Abdomen and Pelvis With Intravenous Contrast CLINICAL HISTORY: Reason for exam: abd pain, hx breast ca, recent port placement. TECHNIQUE: Axial computed tomography images of the abdomen and pelvis with intravenous contrast. CTDI is 12.78 mGy and DLP is 611.85 mGy-cm. Automated exposure control was utilized for the study. A dose lowering technique was utilized adhering to the principles of ALARA. CONTRAST: Patient received 87 ml optiray 320 of IV contrast COMPARISON: 05/11/2017 FINDINGS: Lung bases: Unremarkable. No mass. No consolidation. ABDOMEN: Liver: Unremarkable. No mass. Gallbladder and bile ducts: Unremarkable. No calcified stones. No ductal dilation. Pancreas: Unremarkable. No mass. No ductal dilation. Spleen: Unremarkable. No splenomegaly. Adrenals: Unremarkable. No mass. Kidneys and ureters: Left lower pole renal hypodensity likely representing a cyst. No hydronephrosis. Stomach and bowel: Marked distention of the colon and proximal small bowel with a transition between dilated and nondilated loops of small bowel within the left lower quadrant. No mucosal thickening. PELVIS: Appendix: No findings to suggest acute appendicitis. Bladder: Unremarkable. No mass. Reproductive: Unremarkable as visualized. ABDOMEN and PELVIS: Intraperitoneal space: Unremarkable. No free air. No significant fluid collection. Bones/joints: No acute fracture. No dislocation. Soft tissues: Unremarkable. Vasculature: Unremarkable. No abdominal aortic aneurysm. Lymph nodes: Unremarkable. No enlarged lymph nodes. IMPRESSION: High-grade small bowel obstruction with transition point in the left lower quadrant Electronically signed by: Sidney Stack MD 11/09/22 01:10 AM Chest X-Ray 11/08/22 23:58 XR chest 1V portable HISTORY: recent port placement COMPARISON: Chest 11/07/2022. FINDINGS: A right subclavian Port-A-Cath terminates in the SVC. This remains unchanged. The tubing appears intact. No pneumothorax. No pleural effusions. The heart is normal in size. No focal lung consolidations to suggest a pneumonia. No evidence for pulmonary edema. IMPRESSION: No significant change compared to the prior study. No acute process. ACT 112: Negative or not required by law. Electronically signed by: Romaine Manzano M.D. 11/09/2022 7:14 AM KUB X-Ray 11/09/22 17:27 KUB CLINICAL HISTORY: check NG tube placement, SBO COMPARISON STUDY: CT of the abdomen and pelvis and chest radiograph performed earlier today. FINDINGS: Right internal jugular Rwyqfu-p-[id number] is in place. Tip of the nasogastric tube projects over the gastric cardia. The tube could be advanced 6 cm. Lungs are clear. No pneumothorax or pleural effusion. Cardiac size is normal. Mediastinal contours are normal. IMPRESSION: Tip of nasogastric tube projects over the gastric cardia. The tube could be advanced 6 cm. ACT 112: Negative or not required by law. Electronically signed by: Leonard Pelayo M.D. 11/09/2022 6:07 PM KUB X-Ray 11/09/22 18:38 KUB CLINICAL HISTORY: reposition of NG tube, verification COMPARISON STUDY: KUB November 09, 2022 at 5:46 PM. FINDINGS: Right subclavian [id number]-[id number] is in place. Tip of nasogastric tube projects over the body of the stomach. Visualized lungs are clear. IMPRESSION: Tip of nasogastric tube projects over the body of the stomach. ACT 112: Negative or not required by law. Electronically signed by: Leonard Pelayo M.D. 11/09/2022 7:55 PM KUB X-Ray 11/10/22 07:00 KUB HISTORY: Small bowel obstruction. Follow-up. COMPARISON: Abdomen and pelvis CT 11/09/2022. FINDINGS: No dilated loops of bowel to suggest a small bowel obstruction at this time. There is moderate fecal retention again noted. Calcifications within the left deep pelvis favor phleboliths. The nasogastric tube terminates in the proximal stomach. The fenestrated line is located at the gastroesophageal junction. This remains unchanged. This could be advanced by approximately 5 cm. Possible right-sided nephrolithiasis. No pneumoperitoneum or pneumatosis. IMPRESSION: 1. The nasogastric tube terminates within the stomach. This could be advanced by approximately 5 cm. 2. No dilated loops of bowel identified. 3. Moderate fecal retention. 4. Possible right-sided nephrolithiasis. ACT 112: Negative or not required by law. Electronically signed by: Romaine Manzano M.D. 11/10/2022 12:35 PM Hospital Course (1) Small bowel obstruction: - High-grade small bowel obstruction- - Kept NPO and NG tube placed to low intermittent suction - NSS + KCl 20 mEq at 100 mL/h - Pantoprazole 40 mg IV daily - Empiric abx ordered (Cipro and Flagyl) - IV pain control ordered - General surgery consulted, appreciate assistance - NGT clamped today, KUB obtained and showed no evidence of SBO - NGT removed and diet advanced to CLD on 11/10 & IVF capped - Pt doing well on 11/11, diet advanced to low fiber of which she tolerated well (2) Urinary tract infection: - H/o chronic interstitial cystitis & chronic pelvic pain, follows with urology - Currently on rx for UTI secondary to Group B Strep with Ancef 1g IV BID d/t PCN allergy (Cipro and Flagyl d/c'd) - Can convert to Keflex upon d/c x 4 more days for a total of 7 days - For her IC, placed back on Oxybutynin, Hydroxzine will be utilized 10 q8 prn, Pyridium 200mg BID prn, and Tamsulosin - Urine PCR pending that was collected at last urology office visit - Plan will be for her to f/u with urology as outpatient following discharge - She will need to hold her prophylactic Bactrim while she is taking the Keflex and can resume it when she has completed her course (3) Hypothyroidism: - Continue thyroid supplementation (4) 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 Will need to wait until this episode is resolved (5) Anxiety: - Certainly worsened since her breast CA diagnosis - Continue Lorazepam 0.5mg TID prn anxiety (6) Insomnia: - Failed melatonin that she tried as outpatient - Will trial Ambien 10mg at HS (previously tried 5mg) - did well, rx provided to patient Plan Patient has responded well to conservative measures and SBO has resolved. She is medically and hemodynamically stable for discharge home with outpatient f/u with her PCP and urology. Plan has been d/w Dr. Berman who is in agreement with aforementioned. Total Time Total Time Spent Total Time Spent (In Minutes): 45 minutes Discharge Plan Discharge Items Patient Disposition: Home - Self-Care Reason For Visit: SBO Discharge Diagnosis: Small bowel obstruction interstitial cystitis Activity: Resume your previous activity Non-emergency contact: Primary Care Provider and Urologist Call non-emergency contact if: you have any medication questions, your symptoms worsen and your pain is not controlled Follow-up/Referrals: Bill Mckenzie MD, FACS [Physician] - Lisa Law MD [Primary Care Provider] - 11/25/22 10:00 am Diet: Regular Addtl Attending Provider Instructions: You were hospitalized due to a small bowel obstruction which responded to conservative measures of a nasogastric tube, fluids, and pain control. You do not need any specific follow up for this. Seek evaluation if recurrent symptoms would occur such as abdominal pain, nausea or vomiting. You were started on an antibiotic due to a UTI that was found during your recent visit to urgent care. You were placed on an antibiotic in the hospital but will need to complete a course at home. You have been prescribed Keflex also called Cephalexin 500mg one tablet twice a day. Your next dose is due this evening (11/11/22) before bed, take with food/snack. Please complete the course. While you are taking the Keflex, please hold the Bactrim. You can resume this when you have completed your course of Keflex. In terms of your interstitial cystitis, we have made some adjustments to your medication regimen. Please continue to take hte following medications as we discussed. Urology will contact you with a follow up appointment. Oxybutynin 5mg daily, but can take again before bed if needed. Hydroxyzine 10mg every 8 hours as needed for bladder pain/spasms Tamsulosin 0.4mg daily at bedtime Pyridium 200mg twice a day as needed for bladder pain/spasms. Please schedule a follow up with your primary care provider within 1 week of discharge from the hospital or sooner if needed. If you have any questions or concerns following your discharge, you can call the nonemergency number listed on your discharge paperwork. In the event of a medical emergency, call 911. Pending Studies at Discharge: No Stand-Alone Forms: My [facility] [employer], Smoking Cessation Medications and DC Order Prescriptions: New cephalexin 500 mg capsule 500 mg PO BID Qty: 9 0RF zolpidem [Ambien] 10 mg tablet 10 mg PO HS PRN (Reason: sleep) Qty: 10 0RF Continued lorazepam 0.5 mg tablet 0.5 mg PO TID PRN (Reason: anxiety) Qty: 90 0RF phenazopyridine [Pyridium] 200 mg tablet 200 mg PO BID PRN (Reason: bladder pain) Qty: 10 0RF Rx Instructions: Take for 2-3 days at a time as needed hydrocortisone [Proctozone-HC] 2.5 % cream with perineal applicator [address] DAILY PRN (Reason: hemorrhoids) Qty: 30 1RF thyroid (pork) [[place] Thyroid] 30 mg tablet 30 mg PO BID Qty: 60 11RF Standard Process Vitamin B12 1 tab PO QPM Standard Process Flaxseed Oil/Vitamin B6 1 tab PO QPM Standard Process Multizyme 1 tab PO HS Standard Process Zinc 1 tab PO QPM tamsulosin 0.4 mg capsule 0.4 mg PO QPM betamethasone valerate 0.12 % foam 1 applic topical BID PRN (Reason: Rash) oxycodone 5 mg tablet 5 - 10 mg PO Q6H PRN (Reason: pain) Qty: 20 0RF Probiotic Acidophilus 1.5 mg (250 million cell) Capsule 1.5 mg PO QAM Patient Comments: Klatcher Brand Standard Process Cataplex Acp 1 cap PO QPM Standard Process Chlorophyll 1 dose PO QAM Changed oxybutynin chloride 5 mg tablet 5 mg PO DAILY PRN (Reason: bladder issues) Qty: 30 0RF hydroxyzine HCl 10 mg tablet 10 mg PO Q8H PRN (Reason: bladder pain) Qty: 30 2RF Held sulfamethoxazole-trimethoprim [Bactrim DS] 800-160 mg tablet 0.775 tab PO BID Qty: 6 1RF Hold Instructions: Resume on 11/16/22. Discontinued diphenhydramine HCl 50 mg Capsule 50 mg PO HS Hold Instructions: hold Discharge Orders: Discharge Order (Routine); Ordered 11/11/22 Ordered By: Karissa Montenegro Admission Data Admit Date/Time: 11/09/22 01:42 Attending Provider: Vinh Berman Admit Provider: Jairon Gao Primary Care Provider: Lisa Law V. 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
[2022-11-11 13:40] VITALS: PULSE 83
--- NOTE | 2022-11-11 13:55 | Surgery Progress Note ---
Date of Service November 11, 2022 Assessment & Plan (1) Small bowel obstruction: Plan: Doing well. I agree okay for discharge. She can follow-up with Dr. Mckenzie for both her prior surgical issues as well as a small bowel obstruction. Admission and Anticipated Discharge Date Admission Date: November 09, 2022 Subjective Patient seen. Feeling better. She is eating and her bowels are moving. She did tolerate regular diet. Physical Exam Physical Exam: Alert. No acute distress Dressing intact over subclavian Mediport Abdomen soft nontender nondistended. Questionable small lipoma in the right upper quadrant versus incarcerated hernia. More likely lipoma. Results & Data Vital Signs (Past 12 Hours) Vital Signs Temp Pulse Pulse Resp BP Pulse Ox O2 Del Method 11/11/22 13:39 36.4 C L 83 77 16 123/85 97 11/11/22 07:32 36.4 C L 77 16 123/85 97 Room Air PG Care Time/CCT Total # of Minutes Spent Total Time Spent with Patient: Total time spent is greater than 50% in coordination of care (as documented) at patient's floor/unit and/or counseling patient: Coding Level of Care Code 64156 SUB INP/OBS CARE 2/35MIN Diagnoses Small bowel obstruction K56.609
== END 2022-11-11 14:41 | disposition home or self-care (01) | DRG 389 ==
LOC: ED 22:55 → EDINP 11-09 01:42 → SUATTDRO 11-09 01:42 → EDINP 11-09 14:03 → 3N 11-09 14:56